=== PATIENT | male | born 1950 | race Caucasian/White ===

== ENCOUNTER 2017-05-15 12:49 | Emergency (ER) | payer MEDICARE, OTHER ==
[2017-05-15] MEDS ORDERED: HYDROmorphone INJ* 1 MG/ML CARPUJECT SYRINGE IV ONE ×2 (13:04→14:17)
[2017-05-15] MEDS ORDERED: Ondansetron INJ* 2 MG/ML VIAL IV ONE ×2 (13:04→14:17)
[2017-05-15] MEDS ORDERED: Ondansetron INJ* 2 MG/ML VIAL ONE (13:05)
[2017-05-15 13:53] LABS: Hematocrit 41 % (42-52); Mean Corpuscular HGB Conc 34 g/dl (31-36); Mean Corpuscular Hemoglobin 31 pg (27-31); Mean Corpuscular Volume 93 fL (80-94); Mean Platelet Volume 10 um3 (7.4-10.4); Red Blood Count 4.46 10^6/ul (4.0-5.4); Red Cell Distribution Width 13 % (10.5-15); White Blood Count 13.7 10^3/ul (3.5-10.8)
[2017-05-15 14:10] LABS: Albumin 3.6 g/dL (3.2-5.2); BUN/Creatinine Ratio 13.9 (8-20); C Reactive Protein 2.57 mg/L (< 5.00); Calcium 8.4 mg/dL (8.6-10.3); EGFR African American 63.3 (>60); EGFR Non-African American 49.2 (>60); Globulin 2.8 g/dL (2-4); Potassium 4.3 mmol/L (3.5-5.0); Total Bilirubin 0.7 mg/dL (0.2-1.0); Total Protein 6.4 g/dL (6.4-8.9)
[2017-05-15] MEDS ORDERED: NS 0.9% 1000 ML* 1,000 ML IV ONE (14:17)
[2017-05-15] MEDS ORDERED: Iodixanol* (CONTRAST) 320 MG/ML 100 ML SDV IV ONE (14:22)
--- NOTE | 2017-05-15 15:15 | RAD ---
HISTORY: Trauma COMPARISONS: None TECHNIQUE: Multiple contiguous axial CT scans were obtained of the lumbar spine without intravenous contrast, with coronal and sagittal multiplanar reformations. FINDINGS: SPINAL CANAL: Evaluation of the central canal is limited on CT technique; however, there is no obvious canalicular mass or epidural hemorrhage. ALIGNMENT: The alignment is normal. VERTEBRAL BODIES: There are minimally displaced fractures of the right transverse processes of L1, L2, L3, and L4. The vertebral bodies are preserved in height. There is unilateral pars defect of L5 on the left. JOINTS: There is facet hypertrophic change MUSCULATURE: Unremarkable INTERVERTEBRAL DISCS: There is diffuse loss of intervertebral disc height throughout the spine. AXIAL IMAGES: T11-T12: There is no osseous neural foraminal area or central canal stenosis. T12-L1: There is no osseous neural foraminal narrowing or central canal stenosis. L1-L2: There is no osseous neural foraminal narrowing or central canal stenosis. L2-L3: There is no osseous neural foraminal narrowing or central canal stenosis. L3-L4: There is broad-based disc bulge with mild narrowing of the central canal. There is no osseous neural foraminal narrowing. L4-L5: There is mild disc bulge. There is no osseous neural foraminal narrowing or central canal stenosis. L5-S1: There is mild disc bulge. There is no osseous neural foraminal narrowing or central canal stenosis. SOFT TISSUES: The visualized soft tissues of the abdomen are unremarkable. OTHER: None IMPRESSION: 1. MINIMALLY DISPLACED FRACTURES OF THE TRANSVERSE PROCESSES OF L1, L2, L3, AND L4 ON THE RIGHT. 2. UNILATERAL PARS DEFECT AT L5. 3. DEGENERATIVE DISC DISEASE AND OSTEOARTHRITIS. 4. THERE IS MILD NARROWING OF THE CENTRAL CANAL AT L3-L4. 5. THERE IS NO SIGNIFICANT OSSEOUS NEURAL FORAMINAL NARROWING.
--- NOTE | 2017-05-15 15:17 | RAD ---
INDICATION: Trauma, right flank and pelvic pain. COMPARISON: There are no prior studies available for comparison. TECHNIQUE: A CT scan of the chest, abdomen and pelvis was performed with intravenous and without oral contrast following intravenous injection of 122 ml of Visipaque 320 nonionic contrast. Contiguous axial sections were obtained from the lung apices through the symphysis pubis. Images were reconstructed in the coronal and sagittal planes. FINDINGS: There are mild dependent lower lobe infiltrates most consistent with atelectasis. No pleural effusion or pneumothorax is seen. No mediastinal hemorrhage is seen. No significant enlarged mediastinal or hilar lymph nodes are noted. The heart appears moderately enlarged. No pericardial effusion is present. The ascending thoracic aorta is mildly ectatic. There is homogeneous contrast opacification of the aorta. There is minimal calcific plaque present. The liver and spleen are normal in size. The liver is decreased in attenuation consistent with fatty infiltration. No significant focal hepatic abnormality is seen. The patient is status post cholecystectomy. No focal splenic abnormalities noted. There is fatty infiltration of the pancreas which otherwise appears unremarkable. The kidneys and adrenal glands are normal in size. There is no evidence for hydronephrosis. There is a small subcentimeter cyst present in the lower pole of the right kidney. The aorta is normal in caliber and demonstrates homogeneous contrast opacification. No retroperitoneal hemorrhage is seen. No significant enlarged retroperitoneal lymph nodes are noted. The stomach, small and large bowel appear nondistended. No bowel wall thickening is noted. There are small periumbilical hernias containing fat. There are also bilateral inguinal hernias containing fat. No free intraperitoneal air or fluid is seen. There is focal soft tissue swelling present in the subcutaneous tissues of the right flank most consistent with a hematoma and contusion. There are slightly displaced fractures of the right L1-L4 transverse processes. No other fractures are seen. IMPRESSION: 1. RIGHT FLANK HEMATOMA AND CONTUSION. 2. FRACTURES OF THE RIGHT L1-L4 TRANSVERSE PROCESSES. 3. HEPATIC STEATOSIS. 4. PERIUMBILICAL AND BILATERAL INGUINAL HERNIAS CONTAINING FAT.
[2017-05-15] MEDS ORDERED: Ketorolac INJ* 30 MG/ML 1 ML VIAL IV ONE (16:48)
[2017-05-15] MEDS ORDERED: LORazepam INJ* 2 MG/ML 1 ML VIAL IV ONE (16:48)
[2017-05-15 18:32] VITALS: BP 110/76
--- NOTE | 2017-05-15 19:02 | ED ---
Esme Ventura Thomas, scribed for Ruben Moody MD on 05/15/17 at 1321 . Back Pain - HPI Summary HPI Summary: The pt is a 66 y/o M BIBA c/o low back pain s/p a small tree that fell on his back about two hours ago. He was able to self-extricate his truck. The pain began suddenly and it is rated 9/10. The pain is constant. He is in severe pain. The pain is aggravated by movement and palpation. It is alleviated by nothing. The patient has treated the pain with nothing [employer]. - History of Current Complaint Chief Complaint: EDTraumaMultiple Stated Complaint: INJURED BY TREE Hx Obtained From: Patient Onset/Duration: Sudden Onset, Lasting Hours - onset two hours ago, Still Present Onset/Duration: Still Present Timing: Constant Severity Currently: Severe Pain Intensity: 9 Pain Scale Used: 0-10 Numeric Aggravating Symptom(s): Movement Alleviating Symptom(s): Nothing - Allergies/Home Medications Allergies/Adverse Reactions: Allergies Allergy/AdvReac Type Severity Reaction Status Date / Time No Known Drug Allergy Allergy See Comment Verified 05/15/17 14:28 Procaine [From Novocain] AdvReac Nausea And Verified 05/15/17 14:28 Vomiting NOVACAINE Allergy Nausea And Uncoded 05/15/17 14:28 Vomiting PMH/Surg Hx/FS Hx/Imm Hx Previously Healthy: Yes Endocrine/Hematology History: Denies: Hx Diabetes Cardiovascular History: Denies: Hx Hypertension History: Reports: Other Problems/Disorders - nephrosis at 3 yo - Surgical History Surgery Procedure, Year, and Place: [facility] Infectious Disease History: No Infectious Disease History: Denies: History Other Infectious Disease, Traveled Outside the [place] in Last 30 Days - Family History Known Family History: Positive: Diabetes - Social History Lives: With Family Alcohol Use: None Hx Substance Use: No Substance Use Type: Reports: None Hx Tobacco Use: Yes Smoking Status (MU): Former Smoker Type: Cigars Have You Smoked in the Last Year: No Review of Systems Negative: Fever Positive: Other - Sudden-onset back pain s/p small tree fell on back All Other Systems Reviewed And Are Negative: Yes Physical Exam Triage Information Reviewed: Yes Vital Signs On Initial Exam: Initial Vitals Temp Pulse Resp BP Pulse Ox 97.6 F 74 21 126/56 98 05/15/17 12:59 10/11/17 12:59 05/15/17 12:59 05/15/17 12:59 05/15/17 12:59 Vital Signs Reviewed: Yes Appearance: Positive: Well-Appearing, No Pain Distress, Obese Skin: Positive: Warm, Skin Color Reflects Adequate Perfusion, Dry Head/Face: Positive: Normal Head/Face Inspection Eyes: Positive: Normal ENT: Positive: Normal ENT inspection Neck: Positive: Supple, Nontender Respiratory/Lung Sounds: Positive: Clear to Auscultation, Breath Sounds Present Abdomen Description: Positive: Nontender, Soft Bowel Sounds: Positive: Present Musculoskeletal: Positive: Other - He is tender to the right paralumbar area and lower chest wall. Neurological: Positive: Normal Psychiatric: Positive: Normal, Affect/Mood Appropriate - Whitney Coma Scale Coma Scale Total: 15 Diagnostics - Vital Signs Vital Signs Temp Pulse Resp BP Pulse Ox 05/15/17 13:09 32 05/15/17 12:59 97.6 F 74 21 126/56 98 - Laboratory Lab Results: Lab Results 05/15/17 05/15/17 05/15/17 Range/Units 13:35 13:35 13:35 WBC 13.7 H (3.5-10.8) 10^3/ul RBC 4.46 (4.0-5.4) 10^6/ul Hgb 14.0 (14.0-18.0) g/dl Hct 41 L (42-52) % MCV 93 (80-94) fL MCH 31 (27-31) pg MCHC 34 (31-36) g/dl RDW 13 (10.5-15) % Plt Count 172 (150-450) 10^3/ul MPV 10 (7.4-10.4) um3 Neut % (Auto) 83.2 H (38-83) % Lymph % (Auto) 9.1 L (25-47) % Richardson % (Auto) 7.0 (1-9) % Eos % (Auto) 0.2 (0-6) % Baso % (Auto) 0.5 (0-2) % Absolute Neuts (auto) 11.4 H (1.5-7.7) 10^3/ul Absolute Lymphs (auto) 1.2 (1.0-4.8) 10^3/ul Absolute Monos (auto) 1.0 H (0-0.8) 10^3/ul Absolute Eos (auto) 0 (0-0.6) 10^3/ul Absolute Basos (auto) 0.1 (0-0.2) 10^3/ul Absolute Nucleated RBC 0 10^3/ul Nucleated RBC % 0 Sodium 138 (133-145) mmol/L Potassium 4.3 (3.5-5.0) mmol/L Chloride 108 (101-111) mmol/L Carbon Dioxide 22 (22-32) mmol/L Anion Gap 8 (2-11) mmol/L BUN 20 (6-24) mg/dL Creatinine 1.44 H (0.67-1.17) mg/dL Est GFR ( Amer) 63.3 (>60) Est GFR (Non-Af Amer) 49.2 (>60) BUN/Creatinine Ratio 13.9 (8-20) Glucose 133 H (70-100) mg/dL Calcium 8.4 L (8.6-10.3) mg/dL Total Bilirubin 0.70 (0.2-1.0) mg/dL AST 36 (13-39) U/L ALT 23 (7-52) U/L Alkaline Phosphatase 46 (34-104) U/L C-Reactive Protein 2.57 (< 5.00) mg/L Total Protein 6.4 (6.4-8.9) g/dL Albumin 3.6 (3.2-5.2) g/dL Globulin 2.8 (2-4) g/dL Albumin/Globulin Ratio 1.3 (1-3) Blood Type A Positive Antibody Screen Negative Result Diagrams: 05/15/17 13:35 05/15/17 13:35 Lab Statement: Any lab studies that have been ordered have been reviewed, and results considered in the medical decision making process. - CT CT Chest/Abd/Pel CT Interpretation: Positive (See Comments) - 1. RIGHT FLANK HEMATOMA AND CONTUSION. 2. FRACTURES OF THE RIGHT L1-L4 TRANSVERSE PROCESSES. 3. HEPATIC STEATOSIS. 4. PERIUMBILICAL AND BILATERAL INGUINAL HERNIAS CONTAINING FAT. ED physician has reviewed this report and agrees. CT Interpretation Completed By: Radiologist CT L-Spine CT Interpretation: Positive (See Comments) - 1. MINIMALLY DISPLACED FRACTURES OF THE TRANSVERSE PROCESSES OF L1, L2, L3, AND L4 ON THE RIGHT. 2. UNILATERAL PARS DEFECT AT L5. 3. DEGENERATIVE DISC DISEASE AND OSTEOARTHRITIS. 4. THERE IS MILD NARROWING OF THE CENTRAL CANAL AT L3-L4. 5. THERE IS NO SIGNIFICANT OSSEOUS NEURAL FORAMINAL NARROWING. ED physician has reviewed this report and agrees. CT Interpretation Completed By: Radiologist Back Pain Course/Dx - Course Course Of Treatment: Mr. Oliva was hit in the right low back by a tree he had felled. He walked a long distance to his truck and then drove about 30 minutes to his house. The paiin was severe so he called an ambulance. They found him with normal vitals but significant pain. He was found here to have right sided transverse process fractures of L1-4. His pain was managed and he is going to try managing his pain at home. - Diagnoses Provider Diagnoses: Lumbar transverse process fracture - Provider Notifications Discussed Care Of Patient With: oMses Newton Time Discussed With Above Provider: 16:10 Instructed by Provider To: Other - I consulted with Dr. Newton, neurosurgery, regarding patient care. Discharge - Discharge Plan Condition: Stable Disposition: HOME Prescriptions: LORazepam TAB(*) [Ativan TAB(*)] 1 mg PO Q6H PRN #20 tab MDD 4 PRN Reason: Pain oxyCODONE/Acetamin 5/325 MG* [Percocet 5/325 TAB*] 1 tab PO Q6H PRN #20 tab MDD 4 PRN Reason: Pain Patient Education Materials: Thoracolumbar Fracture (ED) Referrals: [facility] PHYSICIAN REFERRAL [Outside] Additional Instructions: Follow up with your primary care physician within the next week. If you do not have one, you can use the [facility] Physician Referral Service to find one. I recommend taking ibuprofen for the pain. Return to the emergency department for any new or worsening symptoms. The documentation as recorded by the Esme elias Thomas accurately reflects the service I personally performed and the decisions made by me, Ruben Moody MD.
== END 2017-05-15 18:33 | disposition home or self-care (01) ==
LOC: ED 12:49
DX: S32.010A Wedge compression fracture of first lumbar vertebra, initial encounter for closed fracture (principal); S32.020A Wedge compression fracture of second lumbar vertebra, initial encounter for closed fracture; S32.030A Wedge compression fracture of third lumbar vertebra, initial encounter for closed fracture; S32.040A Wedge compression fracture of fourth lumbar vertebra, initial encounter for closed fracture; S20.221A Contusion of right back wall of thorax, initial encounter; W20.8XXA Other cause of strike by thrown, projected or falling object, initial encounter; Y93.89 Activity, other specified; Y92.821 Forest as the place of occurrence of the external cause; M51.36 Other intervertebral disc degeneration, lumbar region; K76.0 Fatty (change of) liver, not elsewhere classified; K42.9 Umbilical hernia without obstruction or gangrene; K40.20 Bilateral inguinal hernia, without obstruction or gangrene, not specified as recurrent; Z90.49 Acquired absence of other specified parts of digestive tract; Z88.4 Allergy status to anesthetic agent; Z87.891 Personal history of nicotine dependence
CPT/HCPCS: 36415; 71260; 72131; 74177; 80053; 85025; 86140; 86850; 86900; 86901; 96374; 96375; 96376; 99283; J1170; J1885; J2060; J2405; Q9967

== ENCOUNTER 2018-08-18 01:43 | Observation (INO) | payer MEDICARE, OTHER ==
[2018-08-18] MEDS ORDERED: Ondansetron INJ* 2 MG/ML VIAL IV ONE ×2 (02:01→04:14)
[2018-08-18] MEDS ORDERED: Morphine VIAL* 4 MG/ML VIAL (1 ml vial) IV ONE (02:01)
[2018-08-18] MEDS ORDERED: Aspirin 81 mg CHEW TAB* 81 MG TAB.CHEW PO ONE (02:01)
[2018-08-18 02:14] LABS: ABS Basophils 0.1 10^3/ul (0-0.2); ABS Eosinophils 0.3 10^3/ul (0-0.6); ABS Lymphocytes 3.5 10^3/ul (1.0-4.8); ABS Monocytes 0.8 10^3/ul (0-0.8); ABS Nucleated RBC 0 10^3/ul; Eosinophil % 3.5 %; Hematocrit 49 % (42-52); Hemoglobin 16.6 g/dl (14.0-18.0); Lymphocyte % 46.3 %; Mean Corpuscular HGB Conc 34 g/dl (31-36); Mean Corpuscular Hemoglobin 32 pg (27-31); Mean Corpuscular Volume 94 fL (80-94); Nucleated Red Blood Cells % 0.1; Platelet Count 178 10^3/ul (150-450); Red Blood Count 5.18 10^6/ul (4.00-5.40); Red Cell Distribution Width 14 % (10.5-15); White Blood Count 7.5 10^3/ul (3.5-10.8)
--- NOTE | 2018-08-18 02:24 | ED ---
HPI Chest Pain - HPI Summary HPI Summary: This patient is a 67 year old M presenting to [facility] accompanied by with a chief complaint of mid-sternal CP radiating to L arm that began at 0120 today. The patient rates the pain 9/10 in severity. Symptoms aggravated by nothing. Symptoms alleviated by nothing. Patient reports SOB. - History of Current Complaint Chief Complaint: EDChestPainROMI Time Seen by Provider: 08/18/18 01:46 Hx Obtained From: Patient Onset/Duration: Started Hours Ago, Atraumatic, Still Present Time of Onset: 01:20 Timing: Constant Initial Severity: Severe Current Severity: Severe Pain Intensity: 9 Pain Scale Used: 0-10 Numeric Chest Pain Location: Mid Sternal Chest Pain Radiates: Yes Chest Pain Radiates To:: Arm Character: Other: - Pinching Aggravating Factor(s): Nothing Alleviating Factor(s): Nothing Associated Signs and Symptoms: Positive: Shortness of Breath - Allergy/Home Medications Allergies/Adverse Reactions: Allergies Allergy/AdvReac Type Severity Reaction Status Date / Time NOVACAINE Allergy Nausea And Uncoded 08/18/18 01:46 Vomiting Home Medications: Home Medications Furosemide TAB* [Lasix TAB*] 40 mg PO DAILY 08/18/18 [History Confirmed 08/18/18 ] Losartan TAB* [Cozaar TAB*] 50 mg PO DAILY 08/18/18 [History Confirmed 08/18/18] PMH/Surg Hx/FS Hx/Imm Hx Previously Healthy: No Endocrine/Hematology History: Denies: Hx Diabetes Cardiovascular History: Denies: Hx Hypertension History: Reports: Other Problems/Disorders - nephrosis at 3 yo - Surgical History Surgery Procedure, Year, and Place: [facility] Infectious Disease History: Denies: History Other Infectious Disease, Traveled Outside the [place] in Last 30 Days - Family History Known Family History: Positive: Diabetes - Social History Occupation: Retired Lives: With Family Alcohol Use: None Hx Substance Use: No Substance Use Type: Reports: None Hx Tobacco Use: Yes Smoking Status (MU): Former Smoker Type: Cigars Have You Smoked in the Last Year: No Review of Systems Positive: Chest Pain Positive: Shortness Of Breath All Other Systems Reviewed And Are Negative: Yes Physical Exam - Summary Physical Exam Summary: VITAL SIGNS: Reviewed. GENERAL: Patient is a well-developed and nourished male who is lying comfortable in the stretcher. Patient is not in any acute respiratory distress. HEAD AND FACE: No signs of trauma. No ecchymosis, hematomas or skull depressions. No sinus tenderness. EYES: PERRLA, EOMI x 2, No injected conjunctiva, no nystagmus. EARS: Hearing grossly intact. Ear canals and tympanic membranes are within normal limits. MOUTH: Oropharynx within normal limits. NECK: Supple, trachea is midline, no adenopathy, no JVD, no carotid bruit, no c- spine tenderness, neck with full ROM. CHEST: Symmetric, no tenderness at palpation LUNGS: Clear to auscultation bilaterally. No wheezing or crackles. CVS: Regular rate and rhythm, S1 and S2 present, no murmurs or gallops appreciated. ABDOMEN: Soft, non-tender. Distention. No rebound no guarding, and no masses palpated. Bowel sounds are normal. EXTREMITIES: FROM in all major joints, no edema, no cyanosis or clubbing. NEURO: Alert and oriented x 3. No acute neurological deficits. Speech is normal and follows commands. SKIN: Dry and warm Triage Information Reviewed: Yes Vital Signs On Initial Exam: Initial Vitals Temp Pulse Resp BP Pulse Ox 96.5 F 106 25 162/84 97 08/18/18 01:46 08/18/18 01:46 08/18/18 01:46 08/18/18 01:46 08/18/18 01:46 Vital Signs Reviewed: Yes Diagnostics - Vital Signs Vital Signs Temp Pulse Resp BP Pulse Ox 08/18/18 01:46 96.5 F 106 25 162/84 97 - Laboratory Result Diagrams: 08/18/18 02:05 08/18/18 02:05 Lab Statement: Any lab studies that have been ordered have been reviewed, and results considered in the medical decision making process. - Radiology Chest XR Radiology Interpretation Completed By: ED Physician Summary of Radiographic Findings: CXR reveals, per ED physician, bilateral lung congestion and cardiomegaly consistent with CHF. - EKG 0151 Cardiac Rate: NL EKG Rhythm: Sinus Rhythm - 96 BPM Summary of EKG Findings: An EKG taken at 0151 reveals nml sinus rhythm at 96 BPM with PVCs, atrioventricular conduction delay, and minimal ST depression in lateral leads. Poor quality EKG. Chest Pain Course/Dx - Course Course Of Treatment: This patient is a 67 year old M [facility] by with a chief complaint of mid-sternal CP radiating to L arm that began at 0120 today. Physical Exam Findings: Distended. An EKG taken at 0151 reveals nml sinus rhythm at 96 BPM with PVCs, atrioventricular conduction delay, and minimal ST depression in lateral leads. Poor quality EKG. CXR reveals , per ED physician, bilateral lung congestion and cardiomegaly consistent with CHF. Bloodwork obtained. In the ED course the patient was given aspirin, furosemide, morphine, and Zofran. Consult with Dr. Patterson (hospitalist) at 0255. She agrees to admit the patient for further evaluation. The patient is agreeable with this plan. - Diagnoses Provider Diagnoses: CHF (congestive heart failure), Chest pain - Provider Notifications Discussed Care Of Patient With: Marilyn Patterson Time Discussed With Above Provider: 02:55 Instructed by Provider To: Other - Consult with Dr. Patterson (hospitalist) at 0255. She agrees to admit the patient for further evaluation. Discharge - Sign-Out/Discharge Documenting (check all that apply): Patient Departure - Admit to [facility] - Discharge Plan Condition: Stable Disposition: ADMITTED TO [facility] Referrals: Jose A Strong MD [Primary Care Provider] - - Attestation Statements Document Initiated by Scribe: Yes Documenting Scribe: Ewa Kline Provider For Whom Scribe is Documenting (Include Credential): Dr. Moisés Grider MD Scribe Attestation: Ewa Ventura, scribed for Dr. Moisés Grider MD on 08/18/18 at 0257. Status of Scribe Document: Ready
[2018-08-18 02:26] LABS: Activated Partial Thrombo Time 32.4 seconds (26.0-36.3); INR 0.93 (0.77-1.02)
[2018-08-18 02:35] LABS: Albumin 4.2 g/dL (3.2-5.2); Albumin/Globulin Ratio 1.3 (1-3); Calcium 9.4 mg/dL (8.6-10.3); EGFR Non-African American 54.7 (>60); Globulin 3.2 g/dL (2-4); Magnesium 2.2 mg/dL (1.9-2.7); Total Bilirubin 0.6 mg/dL (0.2-1.0); Total Protein 7.4 g/dL (6.4-8.9)
[2018-08-18] MEDS ORDERED: Furosemide IV* 10 MG/ML VIAL (40 MG) IV SLOW PU ONE (02:42)
[2018-08-18] MEDS ORDERED: Nitroglycerin TAB 0.4 MG* 0.4 MG TAB SL ONE (03:32)
[2018-08-18] MEDS ORDERED: Al Hydrox/Mg Hydrox/Simet LIQ* 30 ML UDC PO PRN (03:43)
[2018-08-18] MEDS ORDERED: Enoxaparin(*) 40 MG/0.4 ML SYR SUBCUT SCH ×2 (04:00→06:00)
[2018-08-18] MEDS ORDERED: Ondansetron INJ* 2 MG/ML VIAL ONE (04:13)
[2018-08-18] MEDS ORDERED: Morphine VIAL* 4 MG/ML VIAL (1 ml vial) IV PRN (05:34)
[2018-08-18] MEDS: Heparin DRIP 25,000 UNITS(*) 25,000 UNITS/500 ML BAG IV SCH (06:18)
[2018-08-18] MEDS: Heparin VIAL(*) 5000 UNITS/ML VIAL (FIVE THOUSAND) IV PRN (06:18)
--- NOTE | 2018-08-18 06:25 | PN ---
Hospitalist Progress Note Date of Service: 08/18/18 RN called to report troponin of 0.23. I went back to assess Mr. Mccracken and read new EKG. He is chest pain free. EKG shows unchanged lateral T-wave inversions. I updated him on this finding. Will consult cardiology. Start heparin drip and beta ace and statin.
--- NOTE | 2018-08-18 06:39 | HP ---
CC: Dr. Strong HISTORY AND PHYSICAL: DATE OF ADMISSION: 08/18/18 COMMUNITY ENGAGEMENT REPRESENTATIVE: Dr. Arvizu. CHIEF COMPLAINT: Chest pain. HISTORY OF PRESENT ILLNESS: This is a 67-year-old man with history of a nonischemic cardiomyopathy t hat was thought to be viral in 2014, who presents to the emergency department with chest pain that be reza around 11 p.m. and woke him up from sleep. He reported an uneventful evening and dinner and went to bed feeling well and woke up suddenly with mid sternal chest pain. Of note, he reports he broke his sternum last year and feels that it never healed correctly. The pain radiated from the sternum t o the left arm, but it was unchanged with exertion, unchanged with position, and unchanged with rest. It improved in the emergency department with morphine but has not gone. If the pain at home was 10 /10, the pain now is 3/10. It was associated with shortness of breath. He had no nausea or diaphore sis. When he was at home, he got out of bed and was trying to walk around to get comfortable and he could not, so his called EMS. He also notes over the past year having decreased exercise tolera nce; however, he is able to walk many blocks without shortness of breath and he denies orthopnea. 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 PAST MEDICAL HISTORY: Nonischemic cardiomyopathy that was thought to be viral in nature, that was di agnosed in 2014. He and his reports that he followed up with Dr. Arvizu and that his EF has not recovered since that time, though I do not have a recent echo here. Sternal fracture in 2018. PAST SURGICAL HISTORY: Cholecystectomy. 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 He does not smoke. He does not drink. His emergency contact is his w andrew who is here with him. REVIEW OF SYSTEMS: As per HPI. The remainder of the 14-point review of systems is negative. PHYSICAL EXAMINATION GENERAL: Alert, well-appearing man, in no distress. VITAL SIGNS: Temperature 96.5, heart rate 79, respiratory rate 18, pulse ox 91% on room air, blood p ressure 120/84. HEENT: Pupils are equal, round, and reactive to light. Oral mucosa is moist. NECK: JVP is noted at the mandible at 45 degree angle. LUNGS: Clear bilaterally with no crackles. CHEST: Regular rate and rhythm. No murmurs. PMI is nondisplaced. ABDOMEN: Obese, soft, nontender, and nondistended. Liver and spleen are not palpable. EXTREMITIES: No edema. No rashes or ulcers. DIAGNOSTIC STUDIES/LAB DATA: Sodium 139, potassium 4.0, chloride 102, creatinine 1.31, glucose 139, lactic acid 1.1. Troponin 0.03. INR 0.93. White blood cells 7.5, hemoglobin 16.6, platelets 178. Chest x-ray shows cardiomegaly. It is a poor film. The left costophrenic angle is out of the pictu re. He does have pulmonary vascular congestion. EKG: Sinus rhythm, normal axis with a long QRS in a nonspecific pattern. He has ST depressions in V 4 through V6 that are unchanged from EKG from 2015. ASSESSMENT AND PLAN: This is a 67-year-old man with history of a nonischemic cardiomyopathy with an EF of 20% in 2015, who presents to the emergency department with sudden onset of chest pain that woke him from sleep. 1. Chest pain. He had a normal cardiac catheterization in 2015; however, I do not have any cardiolo gy records since that time and an initial the patient is negative. An EKG does have ischemic changes but it is unchanged from his EKGs from 2015. I am giving him nitro and morphine to get him chest j luis n free. I am trending his troponin and monitoring him on telemetry. He may warrant a stress test if his troponins are negative, and records from Dr. Arvizu's office would also be helpful. Certainl y, it is possible that this pain is a result of sternal fracture that occurred last year; however, it will be unusual that he has not had this chest pain over the past year since the injury happened. Dragan miles has been given aspirin 325 in the emergency department. He already takes losartan. Depending on t he results of his troponins and stress, he may benefit from the addition of a statin and a beta-block er. 2. Nonischemic cardiomyopathy with decompensated systolic heart failure. He does appear slightly vo lume overloaded. I am changing his p.o. Lasix to IV Lasix. 3. Chronic kidney disease. His creatinine appears to be at baseline. 4. Diet. N.p.o. for possible stress test depending on the results of his troponin. [id number]/[facility] #: [id number]
[2018-08-18] MEDS ORDERED: Furosemide IV* 10 MG/ML VIAL (40 MG) IV SLOW PU SCH (09:00)
[2018-08-18] MEDS: Losartan TAB* 25 MG PO SCH (09:06)
[2018-08-18] MEDS: Metoprolol Tartrate TAB* 25 MG PO SCH ×2 (09:07→20:47)
--- NOTE | 2018-08-18 11:09 | PN ---
Subjective Date of Service: 08/18/18 Interval History: HD #1 08/18/17 67 yo M who presented with chest pain hx of NICM in 2014. Overnight no complaints per pt he feels well without CP at rest but does have when he "sneezes or coughs" Not eating as NPO for stress, making good urine. This morning troponins did bump from 0.28 to 0.94 he remains on a heparin gtt. Seen with cardiology, tele shows 4 beat run of NSVT, plan is to pursue stress as ordered. Objective Active Medications: Al Hydrox/Mg Hydrox/Simethicone (Maalox Plus*) 30 ml PO Q6H PRN PRN Reason: INDIGESTION Aspirin (Aspirin 81 Mg Chew Tab*) 81 mg PO DAILY [facility] Atorvastatin Calcium (Lipitor*) 40 mg PO 1700 [facility] Furosemide (Lasix Iv*) 40 mg IV SLOW PU DAILY [facility] Last Admin: 08/18/18 09:08 Dose: 40 mg Heparin Sodium (Porcine) (Heparin Vial(*)) 0 units IV .BOLUS PRN PRN Reason: HEPARIN DRIP PROTOCOL Last Admin: 08/18/18 06:18 Dose: 4,000 units Heparin Sodium/Dextrose (Heparin Drip 25,000 Units(*)) 25,000 units in 500 mls @ 0 mls/hr IV PER RATE [facility]; Protocol Last Admin: 08/18/18 06:18 Dose: 20 mls/hr Losartan Potassium (Cozaar Tab*) 50 mg PO DAILY [facility] Last Admin: 08/18/18 09:06 Dose: 50 mg Metoprolol Tartrate (Lopressor Tab*) 12.5 mg PO Q12HR [facility] Last Admin: 08/18/18 09:07 Dose: 12.5 mg Morphine Sulfate (Morphine Vial*) 4 mg IV Q2H PRN PRN Reason: PAIN Vital Signs - 8 hr 08/18/18 08/18/18 08/18/18 03:34 04:00 04:04 Temperature Pulse Rate 79 76 79 Respiratory 20 16 17 Rate Blood Pressure 137/88 122/78 123/78 (mmHg) O2 Sat by Pulse 94 94 95 Oximetry 08/18/18 08/18/18 08/18/18 04:06 04:20 04:35 Temperature Pulse Rate 77 73 Respiratory 18 12 18 Rate Blood Pressure 106/74 116/65 113/76 (mmHg) O2 Sat by Pulse 94 92 Oximetry 08/18/18 08/18/18 08/18/18 05:02 05:07 07:25 Temperature 98.6 F 97.6 F 98.5 F Pulse Rate 78 78 81 Respiratory 18 20 16 Rate Blood Pressure 113/76 131/69 129/83 (mmHg) O2 Sat by Pulse 94 95 95 Oximetry Oxygen Devices in Use Now: None Appearance: Pt is seen laying in bed, pleasant and chatty Eyes: PERRLA Ears/Nose/Mouth/Throat: NL Teeth, Lips, Gums Neck: NL Appearance and Movements; NL JVP Respiratory: Symmetrical Chest Expansion and Respiratory Effort, Clear to Auscultation Cardiovascular: NL Sounds; No Murmurs; No JVD, RRR Abdominal: NL Sounds; No Tenderness; No Distention Lymphatic: No Cervical Adenopathy Extremities: No Edema Skin: No Rash or Ulcers Neurological: Alert and Oriented x 3 Result Diagrams: 08/18/18 02:05 08/18/18 02:05 Assess/Plan/Problems-Billing Assessment: 67 yo M with distant hx of viral NICM with unknown EF (records at outside cardiology), CKD, hx of sternal fracture and CLBP who is presenting for chest pain and hospital stay complicated by tropinemia. - Patient Problems (1) Chest pain Current Visit: Yes Status: Acute Code(s): R07.9 - CHEST PAIN, UNSPECIFIED SNOMED Code(s): 97488496 Comment: Ddx includes CAD given rise in trops also consider MSK given hx of sternal fracture and movement associated. -Remains on heparin gtt given tropinemia -Stress test -Cardiology to follow -On asa and statin and low dose Metoprolol (2) Elevated troponin Current Visit: Yes Status: Acute Code(s): R74.8 - ABNORMAL LEVELS OF OTHER SERUM ENZYMES SNOMED Code(s): 518124895 Comment: In setting of new CP r/o CAD --Also consider type II given CKD --Continue to monitor s/p stress --Asa, statin, BB, and ARB in place (3) CKD (chronic kidney disease), stage III Current Visit: Yes Status: Acute Code(s): N18.3 - CHRONIC KIDNEY DISEASE, STAGE 3 (MODERATE) SNOMED Code(s): 626121380 Comment: Appears at baseline, Cr ~1.3 -Losartan 25mg home dose, here at 50mg -Remains on PO Lasix for volume mgmt per home med (4) DVT prophylaxis Current Visit: No Status: Acute Onset Date: 12/08/14 Code(s): WFE9048 - SNOMED Code(s): 244268291 Comment: heparin gtt at this time with PTT per protocol
[2018-08-18] MEDS ORDERED: Perflutren Lipid Microsphere* 3 ML VIAL ONE (12:02)
--- NOTE | 2018-08-18 12:51 | CONS ---
CC: Dr. Arvizu; Dr. Storng * CARDIOLOGY CONSULTATION: DATE OF CONSULT: 08/18/18 INDICATION FOR CONSULT: Chest pain, abnormal troponin. HISTORY OF PRESENT ILLNESS: The patient is a 67-year-old gentleman with a history of cardiomyopathy, who was admitted to the hospital with chest discomfort radiating to the left arm. The patient was admitted here at [facility] in 2014. At that time, the patient had an ejection fraction of 20%, thought secondary to a viral illness. A cardiac catheterization at that time showed a 40% left circumflex lesion, otherwise no significant coronary artery disease. He has been followed by Dr. Arvizu. The patient states that last night, he started having some pressure in his chest that was sort of a pinching feeling in his chest, but did radiate to his neck and out to his left arm. He did have some mild shortness of breath also associated with it. He denied any orthopnea. He denied any diaphoresis. The patient states the discomfort lasted for about an hour or so and then decided to come to the emergency room. On arrival to the emergency room, the patient was pain free. His initial troponin level was 0.03, his second troponin was 0.28, and his third troponin was 0.94. His EKG on admission showed normal sinus rhythm with incomplete right bundle-branch block, mild ST-segment depression in the inferior leads, which was new compared to an EKG in 2015. In speaking with the patient this morning, he has no symptoms. PAST MEDICAL HISTORY: Unremarkable except for hypertension. Of note, the patient did have a sternal fracture secondary to a logging injury this past summer. PAST SURGICAL HISTORY: Cholecystectomy, cardiac catheterization. OUTPATIENT MEDICATIONS: 1. Losartan 50 mg a day. 2. Lasix 40 mg a day. ALLERGIES: To ANETTE INHIBITORS, PROCAINE. SOCIAL HISTORY: He is . 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 He quit smoking cigars in 1969. REVIEW OF SYSTEMS: Negative for changes in bowel or bladder habits, negative for change in sleeping habits. He has gained weight because of his decreased activity recently. PHYSICAL EXAM: Height 5 feet 8 inches, weight 240 pounds. Blood pressure 116/65 , heart rate 71, temperature 98.6, respiratory rate is 18, oxygen saturation 95 % on room air. Sclerae anicteric. Oropharynx is pink, without erythema. Carotids are 2+, without bruits. JVD is normal. Thyroid is normal. Cardiac Exam: S1, S2, without any murmurs, rubs, or gallops. PMI is normal. Lungs are clear to auscultation bilaterally. There is no dullness to percussion. Abdomen is soft, nontender, nondistended, with normoactive bowel sounds. Extremities show no edema. He has 2+ pulses through-out. The patient is awake and alert and oriented. He moves all 4 extremities equally. LABORATORY DATA: Chemistries within normal limits except for troponin levels. BNP is minimally elevated at 404. CBC within normal limits. IMPRESSION: This is a 67-year-old gentleman with a history of non-ischemic cardiomyopathy, who is admitted to the hospital with chest pain. His chest pain is somewhat concerning in its presentation. He does have an elevated troponin level at 0.94. The patient has been started on heparin. It is my recommendation that the patient undergo a chemical nuclear stress test to reevaluate cardiac perfusion. The patient will also get an echocardiogram to reevaluate his LV function. The patient is not on a beta-ace. This may be beneficial to his overall care if his LV function is still diminished. [id number]/CPS #: [id number] MTDD
--- NOTE | 2018-08-18 14:23 | ECHO ---
Patient: PEDRO COLINDRES [facility] Rec#: [id number] : 1950 Date: 08/18/2018 Age: 67y Height: 168 cm / 66.1 in Weight: 109 kg / 240.2 lbs Sex: M BSA: 2.17 Room#: [facility] Admit Date#: 08/18/2018 Type: Inpatient Referring: Javier Odell MD Reading: Javier Odell MD Iron Cutter: Liz Ortega LATONYA CC: Jose A Strong MD CC: Duarte Arvizu Transthoracic Echocardiogram Indication: CP BP: 129/83 HR: 74 Rhythm: NSR with PVCs Findings History: Nonischemic cardiomyopathy secondary to a virus(2014),s/p sternal fracture 2018. Technical Comments: The study is technically limited due to patient body habitus. Completed at 1310. Definity used to enhance images. Left Ventricle: The left ventricular chamber size is severely dilated. There is evidence of a dilated cardiomyopathy. Severe global hypokinesis of the left ventricle is observed. There is severely decreased left ventricular systolic function. The estimated ejection fraction is 20-25%. Abnormal left ventricular diastolic function is observed. Left Atrium: The left atrium is mildly dilated. Right Ventricle: The right ventricle is not well visualized. Right Atrium: The right atrium is not well visualized. Aortic Valve: The aortic valve is trileaflet. There is trace to mild aortic regurgitation. There is no evidence of aortic stenosis. Mitral Valve: The mitral valve leaflets are mildly thickened. There is no evidence of mitral regurgitation. There is no evidence of mitral stenosis. Tricuspid Valve: The tricuspid valve leaflets are normal. There is no evidence of tricuspid valve regurgitation. There is no tricuspid stenosis. Pulmonic Valve: The pulmonic valve appears normal. There is no evidence of pulmonic regurgitation. There is no pulmonic stenosis. Pericardium: The pericardium appears normal. Aorta: There is no dilatation of the ascending aorta. There is no dilatation of the aortic arch. There is no dilation of the aortic root. Pulmonary Artery: The main pulmonary artery appears normal. Venous: The venous system is not well visualized. Contrast: Definity was used to optimize study. A total of 4 ml used. Intravenous contrast was used to enhance endocardial border definition. Summary: There are no significant changes when compared to the previous study done on 12/08/14 Conclusions There is evidence of a dilated cardiomyopathy. Severe global hypokinesis of the left ventricle is observed. There is severely decreased left ventricular systolic function. The estimated ejection fraction is 20-25%. There is trace to mild aortic regurgitation. There is no evidence of aortic stenosis. There is no evidence of mitral regurgitation. There is no evidence of tricuspid valve regurgitation. The pericardium appears normal. There are no significant changes when compared to the previous study done on 12/08/14 Measurements Name Value Normal Range RVIDd (AP) 2D 2.3 cm (0.9 - 2.6) IVSd (2D) 1.1 cm (0.6 - 1) LVPWd (2D) 1 cm (0.6 - 1) LVIDd (2D) 7.1 cm (3.6 - 5.4) LVIDs (2D) 6.3 cm - LV FS (2D) 11 % (25 - 45) Aortic Annulus 2 cm (1.4 - 2.6) Ao root diameter (2D) 3.3 cm (2.1 - 3.5) Ascending Ao 3.3 cm (2.1 - 3.4) Aortic arch 2.8 cm (1.8 - 3.4) Descending Ao 0.5 cm - LA dimension (AP) 2D 5.7 cm (2.3 - 3.8) Name Value Normal Range LA ESV SP 4CH (A/L) 54 ml - LA ESV SP 2CH (A/L) 37 ml - LA ESV BP (A/L) index 49 ml/m2 - Name Value Normal Range MV E-wave Vmax 0.7 m/sec - MV deceleration time 120 msec - MV A-wave Vmax 0.5 m/sec - MV E:A ratio 1.4 ratio - LV septal e' Vmax 0.06 m/sec - LV lateral e' Vmax 0.06 m/sec - LV E:e' septal ratio 11.67 ratio - LV E:e' lateral ratio 11.67 ratio - Name Value Normal Range AV Vmax 1.4 m/sec - AV VTI 25.3 cm - AV peak gradient 8 mmHg - AV mean gradient 3 mmHg - LVOT Vmax 1 m/sec - LVOT VTI 17.8 cm - LVOT peak gradient 4 mmHg - LVOT mean gradient 2 mmHg - Name Value Normal Range PV Vmax 0.6 m/sec - PV peak gradient 1 mmHg -
[2018-08-18] MEDS ORDERED: Atorvastatin* 40 MG TAB PO SCH (17:00)
[2018-08-19] MEDS: Heparin DRIP 25,000 UNITS(*) 25,000 UNITS/500 ML BAG IV SCH (06:07)
[2018-08-19 06:08] LABS: ABS Basophils 0.1 10^3/ul (0-0.2); ABS Eosinophils 0.2 10^3/ul (0-0.6); ABS Lymphocytes 2.2 10^3/ul (1.0-4.8); ABS Monocytes 0.6 10^3/ul (0-0.8); ABS Neutrophils 3.4 10^3/ul (1.5-7.7); ABS Nucleated RBC 0 10^3/ul; Eosinophil % 3.4 %; Hematocrit 44 % (42-52); Hemoglobin 14.9 g/dl (14.0-18.0); Lymphocyte % 33.7 %; Mean Corpuscular HGB Conc 34 g/dl (31-36); Mean Corpuscular Hemoglobin 32 pg (27-31); Mean Corpuscular Volume 94 fL (80-94); Mean Platelet Volume 10.1 fL (7.4-10.4); Nucleated Red Blood Cells % 0; Platelet Count 157 10^3/ul (150-450); Red Blood Count 4.65 10^6/ul (4.00-5.40); Red Cell Distribution Width 13 % (10.5-15); White Blood Count 6.4 10^3/ul (3.5-10.8)
[2018-08-19 06:26] LABS: Calcium 9.3 mg/dL (8.6-10.3); EGFR Non-African American 51.1 (>60); Potassium 4.1 mmol/L (3.5-5.0)
[2018-08-19] MEDS: Heparin VIAL(*) 5000 UNITS/ML VIAL (FIVE THOUSAND) IV PRN (06:53)
--- NOTE | 2018-08-19 07:15 | PN ---
Subjective Date of Service: 08/19/18 Interval History: HD #2 08/19/18 67 yo M w/ NICM EF 20-25% who presented with chest pain. Overnight no acute events. VSS: t Max 98.3, HR 68-80, sinus, 99% on RA BP 99-120/65-72, no tele events, trops did trend up yesterday and reached surinder of 1.24, now at 0.74 this AM. Pt remains CP free. Echo done yesterday still showing global hypokinesis. This morning was at NM stress. Seen upon return, test indicated that he is " high risk" though per pt, Dr. Odell told him he could be d/c. He feels well, eager to eat, denies CP or any other complaints. Long discussion with his where we gently encourage Mr. Mccracken to engage in meaningful cardiac care. Objective Active Medications: Al Hydrox/Mg Hydrox/Simethicone (Maalox Plus*) 30 ml PO Q6H PRN PRN Reason: INDIGESTION Aspirin (Aspirin 81 Mg Chew Tab*) 81 mg PO DAILY [facility] Atorvastatin Calcium (Lipitor*) 40 mg PO 1700 [facility] Last Admin: 08/18/18 17:36 Dose: 40 mg Furosemide (Lasix Tab*) 40 mg PO DAILY [facility] Heparin Sodium (Porcine) (Heparin Vial(*)) 0 units IV .BOLUS PRN PRN Reason: HEPARIN DRIP PROTOCOL Last Admin: 08/19/18 06:53 Dose: 2,000 units Heparin Sodium/Dextrose (Heparin Drip 25,000 Units(*)) 25,000 units in 500 mls @ 0 mls/hr IV PER RATE [facility]; Protocol Last Admin: 08/19/18 06:07 Dose: 17 mls/hr Losartan Potassium (Cozaar Tab*) 50 mg PO DAILY [facility] Last Admin: 08/18/18 09:06 Dose: 50 mg Metoprolol Tartrate (Lopressor Tab*) 12.5 mg PO Q12HR [facility] Last Admin: 08/18/18 20:47 Dose: 12.5 mg Morphine Sulfate (Morphine Vial*) 4 mg IV Q2H PRN PRN Reason: PAIN Vital Signs - 8 hr 08/19/18 03:11 Temperature 98.3 F Pulse Rate 62 Respiratory 16 Rate Blood Pressure 99/65 (mmHg) O2 Sat by Pulse 100 Oximetry Oxygen Devices in Use Now: None Appearance: Well appearing man in NAD in bed Eyes: No Scleral Icterus Ears/Nose/Mouth/Throat: NL Teeth, Lips, Gums Neck: NL Appearance and Movements; NL JVP Respiratory: Symmetrical Chest Expansion and Respiratory Effort, Clear to Auscultation Cardiovascular: NL Sounds; No Murmurs; No JVD, RRR Abdominal: NL Sounds; No Tenderness; No Distention Lymphatic: No Cervical Adenopathy Extremities: No Edema Skin: No Rash or Ulcers Neurological: Alert and Oriented x 3 Result Diagrams: 08/19/18 05:54 08/19/18 05:54 Diagnostic Imaging: Echo 08/18/17: Severe global hypokinesis EF 20-25% NM Stress: Neg for sig ischemic change EKG Data: EKG yesterday afternoon and overnight:Sinus LAD with IVD and QRS ~150, VPC and APC noted, some STD in V5 isolated, otherwise no changes Assess/Plan/Problems-Billing Assessment: 67 yo M with distant hx of viral NICM with EF 20%, CKD, last cath 2014 showed 40 % lesion to Cx, otherwise unremarkable, hx of sternal fracture and CLBP who is presenting for chest pain and hospital stay complicated by tropinemia. NM stress shows no e/o acute ischemic event. Perhaps all 2/2 to demand ischemia in setting of severely depressed EF. - Patient Problems (1) Chest pain Current Visit: Yes Status: Acute Code(s): R07.9 - CHEST PAIN, UNSPECIFIED SNOMED Code(s): 50009048 Comment: Ddx includes CAD given rise in trops, though NM stress showing no active ischemia and cath from 2015 showing only 40% lesion in Circumflex. Consider MSK given hx of sternal fracture and movement associated. -May stop heparin gtt if cardiology Oks -encourage meaningful cardiology engagement -On asa and statin and low dose Metoprolol (2) Elevated troponin Current Visit: Yes Status: Acute Code(s): R74.8 - ABNORMAL LEVELS OF OTHER SERUM ENZYMES SNOMED Code(s): 376049044 Comment: In setting of new CP concerning for CAD though as per above reassuring cath in 2015 and no e/o active ischemia in NM. --Also consider type II given CKD --Continue to monitor s/p stress --Asa, statin, BB, and ARB in place (3) Chronic systolic (congestive) heart failure Current Visit: Yes Status: Acute Code(s): I50.22 - CHRONIC SYSTOLIC ( CONGESTIVE) HEART FAILURE SNOMED Code(s): 739037554 Comment: 09/06 to NICM thought to be viral in 2014. -Home medications, encourage meaninful engagement in cardiology (4) CKD (chronic kidney disease), stage III Current Visit: Yes Status: Acute Code(s): N18.3 - CHRONIC KIDNEY DISEASE, STAGE 3 (MODERATE) SNOMED Code(s): 503444661 Comment: Appears at baseline, Cr ~1.3 -Losartan 25mg home dose, here at 50mg -Remains on PO Lasix for volume mgmt per home med (5) DVT prophylaxis Current Visit: No Status: Acute Onset Date: 12/08/14 Code(s): [id number] - SNOMED Code(s): 079403972 Comment: heparin gtt d/c. ambulatory to d/c Status and Disposition: Will d/c to home
[2018-08-19] MEDS ORDERED: Aspirin 81 mg CHEW TAB* 81 MG TAB.CHEW PO SCH (09:00)
[2018-08-19] MEDS ORDERED: Furosemide TAB* 40 MG PO SCH (09:00)
[2018-08-19] MEDS: Losartan TAB* 25 MG PO SCH (10:26)
[2018-08-19] MEDS: Metoprolol Tartrate TAB* 25 MG PO SCH (10:26)
[2018-08-19] MEDS ORDERED: Regadenoson* 0.4 MG/5 ML SYRINGE ONE (11:16)
[2018-08-19 12:54] VITALS: BP 107/58
--- NOTE | 2018-08-19 13:50 | DCNOTE ---
Subjective Date of Service: 08/19/18 Interval History: Hospitalization Summary: Objective Active Medications: Al Hydrox/Mg Hydrox/Simethicone (Maalox Plus*) 30 ml PO Q6H PRN PRN Reason: INDIGESTION Aspirin (Aspirin 81 Mg Chew Tab*) 81 mg PO DAILY [facility] Last Admin: 08/19/18 10:26 Dose: 81 mg Atorvastatin Calcium (Lipitor*) 40 mg PO 1700 [facility] Last Admin: 08/18/18 17:36 Dose: 40 mg Furosemide (Lasix Tab*) 40 mg PO DAILY [facility] Last Admin: 08/19/18 10:26 Dose: 40 mg Losartan Potassium (Cozaar Tab*) 50 mg PO DAILY [facility] Last Admin: 08/19/18 10:26 Dose: 50 mg Metoprolol Tartrate (Lopressor Tab*) 12.5 mg PO Q12HR [facility] Last Admin: 08/19/18 10:26 Dose: 12.5 mg Vital Signs - 8 hr 08/19/18 08/19/18 08/19/18 07:34 10:25 11:40 Temperature 98.2 F 97.0 F 97.9 F Pulse Rate 65 77 65 Respiratory 20 18 20 Rate Blood Pressure 102/58 121/80 107/58 (mmHg) O2 Sat by Pulse 98 96 97 Oximetry Oxygen Devices in Use Now: None Result Diagrams: 08/19/18 05:54 08/19/18 05:54 Diagnostic Imaging: Echo 08/18/17: Severe global hypokinesis EF 20-25% NM Stress: Neg for sig ischemic change EKG Data: EKG yesterday afternoon and overnight:Sinus LAD with IVD and QRS ~150, VPC and APC noted, some STD in V5 isolated, otherwise no changes Assess/Plan/Problems-Billing Assessment: 67 yo M with distant hx of viral NICM with EF 20%, CKD, last cath 2014 showed 40 % lesion to Cx, otherwise unremarkable, hx of sternal fracture and CLBP who is presenting for chest pain and hospital stay complicated by tropinemia. NM stress shows no e/o acute ischemic event. Perhaps all 2/2 to demand ischemia in setting of severely depressed EF. - Patient Problems (1) Chest pain Current Visit: Yes Status: Acute Code(s): R07.9 - CHEST PAIN, UNSPECIFIED SNOMED Code(s): 53358851 Comment: Ddx includes CAD given rise in trops, though NM stress showing no active ischemia and cath from 2015 showing only 40% lesion in Circumflex. Consider MSK given hx of sternal fracture and movement associated. -May stop heparin gtt if cardiology Oks -encourage meaningful cardiology engagement -On asa and statin and low dose Metoprolol (2) Elevated troponin Current Visit: Yes Status: Acute Code(s): R74.8 - ABNORMAL LEVELS OF OTHER SERUM ENZYMES SNOMED Code(s): 864898352 Comment: In setting of new CP concerning for CAD though as per above reassuring cath in 2015 and no e/o active ischemia in NM. --Also consider type II given CKD --Continue to monitor s/p stress --Asa, statin, BB, and ARB in place (3) Chronic systolic (congestive) heart failure Current Visit: Yes Status: Acute Code(s): I50.22 - CHRONIC SYSTOLIC ( CONGESTIVE) HEART FAILURE SNOMED Code(s): 571216059 Comment: 2/2 to NICM thought to be viral in 2014. -Home medications, encourage meaninful engagement in cardiology (4) CKD (chronic kidney disease), stage III Current Visit: Yes Status: Acute Code(s): N18.3 - CHRONIC KIDNEY DISEASE, STAGE 3 (MODERATE) SNOMED Code(s): 306004729 Comment: Appears at baseline, Cr ~1.3 -Losartan 25mg home dose, here at 50mg -Remains on PO Lasix for volume mgmt per home med Status and Disposition: Will d/c to home
--- NOTE | 2018-08-20 01:11 | DS ---
DISCHARGE SUMMARY: DATE OF ADMISSION: 08/18/18 DATE OF DISCHARGE: 08/19/18 ATTENDING PHYSICIAN: Dr. Yakelin Obrien. PRIMARY DIAGNOSES: 1. Atypical chest pain. 2. Elevated troponin. SECONDARY DIAGNOSES: 1. Chronic systolic congestive heart failure. 2. Chronic kidney disease stage III. MEDICATIONS AT TIME OF DISCHARGE: 1. Losartan 25 mg p.o. daily. 2. Aspirin 81 mg p.o. daily. 3. Furosemide 40 mg p.o. daily. The only medication change was the addition of aspirin 81 mg. HOSPITAL COURSE: Mr. Mccracken is a 67-year-old male with a distant history of a viral nonischemic cardiomyopathy with ejection fraction of 20% noted in 2014, also last cath in 2014 showed a 40% circumflex lesion. Otherwise, CKD III and otherwise healthy gentleman who presented to the emergency room for chest pain and initially in the emergency room, he did not have any EKG changes, but was noted to have an elevated troponin to 0.24. Troponins were trended throughout his stay here and continued to rise to a surinder of 1.24. Cardiology was consulted and made the decision to do a nuclear medicine stress test on this patient, which was completed on 08/19/18. Nuclear medicine stress showed that findings were most consistent with a cardiomyopathy with a significantly decreased left ventricular ejection fraction that was calculated to be 17%. At this time of hospitalization, there was no evidence for significant ischemic change. Eventually, troponins trended down by day 2 and from a max of 1.24, they reached 0.3 at the time of discharge. Cardiology felt that the troponin elevation was secondary to demand ischemia in the setting of heart failure worsening and not secondary to an acute ischemic event given negative nuclear medicine scan and catheterization in 2014 showing only 40% lesion in circumflex only. For his chest pain, Mr. Mccracken felt that it had resolved at the time of discharge. He attributed the entire event to a logging injury that had occurred some time ago. We encouraged him for a close followup with a construction stonemason, which he had been lost to follow up for some time according to both his and the patient. Of note, he continues to have persistently depressed ejection fraction with global hypokinesis and EF of 20% that has not resolved since 2015. He declines LifeVest and he declines any other heart failure treatment besides his home medications, which were as noted, Lasix, losartan, and aspirin. He will follow up with his outpatient construction stonemason to discuss optimizing his heart failure treatments to determine if his atypical chest pain was in fact a result of demand ischemia in the setting of worsening heart failure. On physical exam his last day, he was a well-appearing man, in bed, very pleasant. He had regular rate and rhythm. No murmurs, rubs, or gallops. No JVD was appreciated. He was clear to auscultation bilaterally. His abdominal exam was normoactive bowel sounds, no tenderness, no distention. He had no edema in his extremities. His skin was unremarkable, and neurologically, he was alert and oriented x3. Of note, while his troponins were rising, he was on a heparin drip while awaiting a nuclear medicine scan. After the nuclear medicine scan showed to have no ischemic event, he was discontinued off the heparin drip. On day of discharge, his labs had returned to baseline. His CBC was notable for a white blood cell count of 6.4, hemoglobin 44, hematocrit 94, platelets 157. His BMP was notable for sodium 139, potassium 4.1, chloride 104, BUN 25, creatinine 1.39, and a glucose of 112. As I said, troponins trended down on day of discharge to 0.3. We again encouraged followup with both his primary care and reengaging in cardiac care for his persistent systolic heart failure secondary to nonischemic cardiomyopathy from 2014. DISPOSITION: To home. DIET: Low-sodium diet. ACTIVITY: As tolerated. FOLLOWUP PLAN: 1. To follow up with his primary care doctor. 2. To follow up with Cardiology who is Dr. Arvizu at [place]. TIME SPENT: Approximately 60 minutes were spent in the discharge of this patient and more than half of that time was spent with the patient at the bedside reviewing the events leading up to this hospitalization and during the hospitalization, performing the physical examination, and reviewing the plan of care. I answered all of the family's questions and gave them opportunity to follow up with their primary care and with Cardiology. They had no further questions and were discharged to home. [id number]/CPS #: [id number] MTDD
== END 2018-08-19 14:33 | disposition home or self-care (01) ==
LOC: ED 01:43 → MEDTELE 03:43
PROVIDERS: ADMIT Internal Medicine; ATTEND Internal Medicine
DX: R07.89 Other chest pain (principal); I50.22 Chronic systolic (congestive) heart failure; N18.3 Chronic kidney disease, stage 3 (moderate); Z79.82 Long term (current) use of aspirin; R06.02 Shortness of breath; Z87.891 Personal history of nicotine dependence
CPT/HCPCS: 36415; 71045; 78452; 80048; 80053; 83605; 83735; 83880; 84484; 85025; 85610; 85730; 93005; 93017; 96372; 96374; 96375; 96376; 99284; A9270-GY; A9502; G0378; J1644; J1650; J1940; J2270; J2405; J2785

== ENCOUNTER 2018-10-06 16:29 | Inpatient (IN) | payer MEDICARE, OTHER ==
[2018-10-06 16:57] LABS: ABS Basophils 0.1 10^3/ul (0-0.2); ABS Eosinophils 0.2 10^3/ul (0-0.6); ABS Lymphocytes 2.8 10^3/ul (1.0-4.8); ABS Monocytes 1.1 10^3/ul (0-0.8); ABS Neutrophils 5.3 10^3/ul (1.5-7.7); ABS Nucleated RBC 0 10^3/ul; Eosinophil % 1.6 %; Hematocrit 49 % (42-52); Hemoglobin 16.8 g/dl (14.0-18.0); Lymphocyte % 29.8 %; Mean Corpuscular HGB Conc 35 g/dl (31-36); Mean Corpuscular Hemoglobin 32 pg (27-31); Mean Corpuscular Volume 93 fL (80-94); Mean Platelet Volume 9.6 fL (7.4-10.4); Nucleated Red Blood Cells % 0.1; Platelet Count 217 10^3/ul (150-450); Red Blood Count 5.22 10^6/ul (4.00-5.40); Red Cell Distribution Width 14 % (10.5-15); White Blood Count 9.5 10^3/ul (3.5-10.8)
[2018-10-06] MEDS ORDERED: Diltiazem IV* 5 MG/ML 5 ML VIAL (for loading dose/IV Push) (25 MG) IV SLOW PU ONE ×3 (16:58→18:43)
--- NOTE | 2018-10-06 16:59 | ED ---
HPI Cardiac - HPI Summary HPI Summary: Pt is a 67 y/o M presenting to the ED with a chief complaint of cardiac issues. He broke his sternum last year and does not think it ever healed, has resulting chest pain intermittently that is worse with coughing/sneezing. He was at [facility] today where they noted his HR was 165 and they wanted him to go to the emergency room. The pt denies any fever, chills, erythema of eyes, sore throat, CP, SOB, cough, abdominal pain, N/V, dysuria, hematuria, myalgia, edema, rash, lightheadedness, weakness, or dizziness. - History of Current Complaint Chief Complaint: EDDysrhythmPalp Stated Complaint: RAPID HR Time Seen by Provider: 10/06/18 16:45 Hx Obtained From: Patient Onset/Duration: Started Hours Ago, Still Present Timing: Constant, Lasting Hours Initial Severity: Mild Current Severity: Mild Pain Intensity: 2 Pain Scale Used: 0-10 Numeric Chest Pain Location: Mid Sternal Chest Pain Radiates: No Character: Fast Aggravating Factor(s): Nothing Alleviating Factor(s): Nothing Associated Signs and Symptoms: Positive: Chest Pain. Negative: Dizziness, Shortness of Breath, Fever, Chills, Lightheadedness, Diaphoresis, Nausea, Palpitations, Cough, Abdominal Pain, Vomiting, Edema - Additional Pertinent History Primary Care Physician: [id number] - Allergy/Home Medications Allergies/Adverse Reactions: Allergies Allergy/AdvReac Type Severity Reaction Status Date / Time ANETTE Inhibitors Allergy Swelling Verified 08/18/18 04:17 Of Face,Lips,& Throat procaine [From Novocain] Allergy Nausea And Verified 08/18/18 03:52 Vomiting PMH/Surg Hx/FS Hx/Imm Hx Previously Healthy: No Endocrine/Hematology History: Denies: Hx Diabetes Cardiovascular History: Reports: Hx Angina, Hx Congestive Heart Failure, Hx Coronary Artery Disease, Hx Hypertension Denies: Hx Hypercholesterolemia, Hx Myocardial Infarction Respiratory History: Denies: Hx Asthma History: Reports: Other Problems/Disorders - nephrosis at 3 yo Musculoskeletal History: Reports: Other Musculoskeletal History - fractured L1- L4, fractured sternum Sensory History: Denies: Hx Contacts or Glasses, Hx Hearing Aid Opthamlomology History: Denies: Hx Contacts or Glasses - Surgical History Surgery Procedure, Year, and Place: [facility] Infectious Disease History: No Infectious Disease History: Denies: History Other Infectious Disease, Traveled Outside the [place] in Last 30 Days - Family History Known Family History: Positive: Diabetes - Social History Alcohol Use: None Hx Substance Use: No Substance Use Type: Reports: None Hx Tobacco Use: Yes Smoking Status (MU): Former Smoker Type: Cigars Have You Smoked in the Last Year: No Review of Systems Negative: Fever, Chills, Skin Diaphoresis Negative: Erythema Negative: Sore Throat Positive: Chest Pain - due to sternum injury, Other - fast heat rate Negative: Cough Negative: Abdominal Pain, Vomiting, Nausea Negative: dysuria, hematuria Negative: Myalgia, Edema Negative: Rash Neurological: Negative - dizziness, lightheadedness Negative: Weakness All Other Systems Reviewed And Are Negative: Yes Physical Exam - Summary Physical Exam Summary: Constitutional: Well-developed, Well-nourished, Alert. (-) Distressed Skin: Warm, Dry HENT: Normocephalic; Atraumatic Eyes: Conjunctiva normal Neck: Musculoskeletal ROM normal neck. (-) JVD, (-) Stridor, (-) Tracheal deviation Cardio: Thready rapid pulse which is sometimes irregular. Heart sounds normal; Intact distal pulses; The pedal pulses are 2+ and symmetric. Radial pulses are 2 + and symmetric. (-) Murmur Pulmonary/Chest wall: Effort normal. (-) Respiratory distress, (-) Wheezes, (-) Rales Abd: Soft, (-) tenderness, (-) Distension, (-) Guarding, (-) Rebound Musculoskeletal: (-) Edema Lymph: (-) Cervical adenopathy Neuro: Alert, Oriented x3 Psych: Mood and affect Normal Triage Information Reviewed: Yes Vital Signs On Initial Exam: Initial Vitals Temp Pulse Resp BP Pulse Ox 97.8 F 165 20 125/104 98 10/06/18 16:33 10/06/18 16:33 10/06/18 16:33 10/06/18 16:33 10/06/18 16:33 Vital Signs Reviewed: Yes Diagnostics - Vital Signs Vital Signs Temp Pulse Resp BP Pulse Ox 10/06/18 16:33 97.8 F 165 20 125/104 98 - Laboratory Result Diagrams: 10/09/18 13:28 10/09/18 13:28 Lab Statement: Any lab studies that have been ordered have been reviewed, and results considered in the medical decision making process. - EKG 1650 Cardiac Rate: Tachycardia - 163bpm EKG Rhythm: Sinus Tachycardia ST Segment: Normal Ectopy: None Summary of EKG Findings: Extreme tachycardia w/ wide complex. Baseline wander in lead V4. Re-Evaluation - Re-Evaluation 1st re-eval Re-Evaluation Time: 18:43 Change: Unchanged Comment: Pt's HR is back up to 160, another bolus will be given. Disposition - Course Course Of Treatment: Pt is a 67 y/o M presenting to the ED with a chief complaint of cardiac issues. He broke his sternum last year and does not think it ever healed, has resulting chest pain intermittently that is worse with coughing/sneezing. He was at [facility] today where they noted his HR was 165 and they wanted him to go to the emergency room. The pt denies any fever, chills, erythema of eyes, sore throat, CP, SOB, cough, abdominal pain, N/V, dysuria, hematuria, myalgia, edema, rash, lightheadedness, weakness, or dizziness. The pt 's corporate learning consultant reportedly requested a TTE be performed, along with cardioversion and anticoagulation. I discussed the case with Dr. Odell who recommended Eliquis and aspirin tonight, and cardioversion in the morning under monitor of EKG. The pt's dx will include elevated troponin and atrial flutter w / RVR. As of 184, the pt's HR is elevated again to 160 and will be given a second bolus. - Diagnoses Provider Diagnoses: Elevated troponin, Atrial flutter with rapid ventricular response - Critical Care Time Critical Care Time: 30-74 min - 60 minutes Discharge - Sign-Out/Discharge Documenting (check all that apply): Patient Departure - Discharge Plan Condition: Stable Disposition: ADMITTED TO [facility] - Billing Disposition and Condition Condition: STABLE Disposition: Admitted to [facility] - Attestation Statements Document Initiated by Scribe: Yes Documenting Scribe: Mallory Cooper Provider For Whom Tiburcioibe is Documenting (Include Credential): Shiva Sherman MD. Scribe Attestation: Mallory Ventura, scribed for Shiva Sherman MD. on 10/09/18 at 2054. Scribe Documentation Reviewed: Yes Provider Attestation: The documentation as recorded by the scribe, Mallory Cooper accurately reflects the service I personally performed and the decisions made by me, Shiva Sherman MD. Status of Scribe Document: Viewed
[2018-10-06 17:20] LABS: ALT 33 U/L (7-52); AST 68 U/L (13-39); Albumin/Globulin Ratio 1.1 (1-3); Alkaline Phosphatase 68 U/L (34-104); Anion Gap 11 mmol/L (2-11); BUN/Creatinine Ratio 15.5 (8-20); Blood Urea Nitrogen 22 mg/dL (6-24); CO2 Carbon Dioxide 26 mmol/L (22-32); Calcium 9.5 mg/dL (8.6-10.3); Chloride 103 mmol/L (101-111); EGFR African American 60.4 (>60); EGFR Non-African American 49.9 (>60); Globulin 3.7 g/dL (2-4); Glucose 126 mg/dL (70-100); Potassium 3.9 mmol/L (3.5-5.0); Sodium 140 mmol/L (135-145); Total Protein 7.7 g/dL (6.4-8.9)
[2018-10-06 17:22] LABS: Troponin I 2.42 ng/mL (<0.04)
[2018-10-06] MEDS ORDERED: Diltiazem TAB* 30 MG PO ONE (17:55)
[2018-10-06] MEDS ORDERED: Aspirin 81 mg CHEW TAB* 81 MG TAB.CHEW PO ONE (18:02)
[2018-10-06] MEDS ORDERED: Apixaban* 5 MG TAB PO ONE (18:04)
[2018-10-06 18:31] LABS: Free T4 1.06 ng/dL (0.61-1.12)
[2018-10-06] MEDS ORDERED: Metoprolol Tartrate TAB* 25 MG PO ONE (18:59)
[2018-10-06] MEDS ORDERED: Diltiazem IV VIAL* 125 MG in NS 0.9% 100 ML* 100 ML IVPB ONE (19:01)
[2018-10-06] MEDS ORDERED: Magnesium Sulfate 2 GM IV* 2 GM/50 ML BAG IVPB ONE (19:08)
[2018-10-06] MEDS ORDERED: Potassium Chlor TAB* 20 MEQ TAB.ER PO ONE (19:08)
[2018-10-06] MEDS ORDERED: Acetaminophen TAB* 325 MG PO PRN (19:09)
[2018-10-06] MEDS ORDERED: Ondansetron INJ* 2 MG/ML VIAL IV PRN (19:09)
[2018-10-06] MEDS ORDERED: Diltiazem IV VIAL* 125 MG in NS 0.9% 100 ML* 100 ML IV SCH (20:00)
[2018-10-06 20:40] LABS: Troponin I 4.65 ng/mL (<0.04)
--- NOTE | 2018-10-06 20:57 | HP ---
CC: Dr. Strong; Dr. Arvizu * HISTORY AND PHYSICAL: DATE OF ADMISSION: 10/06/18 PRIMARY CARE PROVIDER: Dr. Strong. RECONSTRUCTIVE DENTIST: Dr. Arvizu. ATTENDING PHYSICIAN: Dr. Karri Isidro * (dictation provided by Geensis Cotto NP ). CHIEF COMPLAINT: Fast heart rate. HISTORY OF PRESENT ILLNESS: Mr. 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 Mr. Mccracken states he was in his normal state of health recently. As of a few months ago he had had a prolonged illness with bronchitis -type symptoms, but he has recovered from that completely. Today, he went to see Dr. Arvizu and described some chest discomfort. EKG there revealed concern for atrial fibrillation or atrial flutter and he was immediately sent to the emergency room for evaluation. In the emergency room, Mr. Mccracken was confirmed to be in atrial flutter. His heart rate was up to 160. He has been given multiple rounds of diltiazem and is now being started on diltiazem drip and his heart rate is running 90, in AFlutter. His labs show a potassium of 3.9, a magnesium of 2.0, a troponin of 2.42, a TSH of 8.4, and a free T4 of 106. I will note that the patient was just hospitalized for concern of chest pain in August and at that time he had a stress test and an echocardiogram, which failed to show any evidence of ischemia, but continued to show his ejection fraction was quite diminished, estimated to be 20% to 25% on echocardiogram. PAST MEDICAL HISTORY: Viral nonischemic cardiomyopathy in 2014 in the setting of a viral pneumonia, ejection fraction 20% with chronic systolic congestive heart failure, and chronic kidney disease stage III. MEDICATIONS: Outpatient medications are: 1. Aspirin 81 mg p.o. daily. 2. Losartan 25 mg p.o. daily. 3. Furosemide 40 mg p.o. daily. ALLERGIES: ANETTE INHIBITORS and PROCAINE. FAMILY HISTORY: The patient reports his mother had multiple cancers, but ultimately after a fall. His dad had diabetes and heart disease. SOCIAL HISTORY: The patient is a former smoker, but he quit in the 70s. He is a former drinker, but has not drank since 2015. No reported drug use. He lives with his who is his healthcare proxy. REVIEW OF SYSTEMS: A 14-point review of systems was completed with Mr. Mccracken and all those not mentioned above were negative. PHYSICAL EXAMINATION GENERAL: Mr. Mccracken is sitting in bed, he is in no acute distress. VITAL SIGNS: Temperature 97.8, pulse rate is running about 90 just after a diltiazem bolus, respiratory rate is 20, O2 saturation 96% on room air, and blood pressure 101/81. LUNGS: Clear to auscultation bilaterally. No accessory muscle use and good aeration. HEART: S1 and S2, very rapid. ABDOMEN: Soft and nontender, with bowel sounds positive x4. EXTREMITIES: No cyanosis, no edema. SKIN: Intact. NEUROLOGIC: He is alert, he is oriented x3, moves all extremities equally. There is no facial asymmetry or focal weakness. Extraocular movements are intact. LABORATORY DATA: Sodium 140, potassium 3.9, chloride 103, serum bicarbonate 26 , BUN 22, creatinine 1.42, glucose 126, lactic acid 1.6, AST 68, ALT 33, alk phos 68, troponin 2.42, TSH 8.40, free T4 of 1.06. WBC 9.5, hemoglobin 16.8, hematocrit 49, platelet count 217. EKG shows atrial flutter with a heart rate of about 160. ASSESSMENT: Mr. 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 Our plans are for observation in the hospital for the followin. New onset rapid atrial fibrillation: The patient has been responding thus far well to diltiazem and a drip is being initiated now. If this proves effective for him we can transition him over to Cardizem orally. The patient is completely stable tonight. 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 He is being placed on Apixaban. I am holding his losartan for tonight just that we have adequate blood pressure to adjust diltiazem drip, but we will need to add back in an ARB. 2. Nonischemic cardiomyopathy: The patient is on losartan as an outpatient, but not on a beta-ace. He has no recollection of why he is not on this medication. He certainly would benefit from that if he can tolerate it at the time of discharge. 3. Elevated troponin: I suspect his elevated troponin is due to rapid heart rate. We will trend and control heart rate as per above. 4. DVT prophylaxis with Apixaban. 5. Code status is full code. TIME SPENT: Approximately 60 minutes were spent with the patient at the bedside reviewing the events leading up to this hospitalization, performing the physical examination, and reviewing my plan of care. GENESIS COTTO NP [id number]/[facility] #: [id number] JEROMY
[2018-10-06] MEDS ORDERED: diPHENhydraMINE PO* 25 MG PO PRN (22:15)
[2018-10-06] MEDS ORDERED: Diltiazem TAB* 30 MG PO SCH (22:30)
[2018-10-07] MEDS ORDERED: Diltiazem TAB* 30 MG PO SCH
--- NOTE | 2018-10-07 00:08 | PN ---
Progress Note - Progress Note Date of Service: 10/07/18 Note: Patient with persistent heart rate in 120-130s, will start diltiazem drip and hold PO diltiazem
[2018-10-07 00:14] LABS: Troponin I 4.85 ng/mL (<0.04)
[2018-10-07] MEDS ORDERED: Diltiazem IV VIAL* 125 MG in NS 0.9% 100 ML* 100 ML IV SCH (01:00)
[2018-10-07] MEDS: Diltiazem IV VIAL* 125 MG in NS 0.9% 100 ML* 100 ML IV SCH ×3 (03:38→12:41)
[2018-10-07] MEDS: Apixaban* 5 MG TAB PO SCH ×2 (05:45→17:40)
[2018-10-07 07:34] LABS: Troponin I 5.04 ng/mL (<0.04)
[2018-10-07] MEDS: Digoxin IV* 0.5 MG/2 ML AMP (0.25 MG/ML) IV SLOW PU SCH ×2 (08:37→13:47)
[2018-10-07 10:00] LABS: Troponin I 4.12 ng/mL (<0.04)
--- NOTE | 2018-10-07 13:17 | CONS ---
CC: Dr. Duarte Arvizu; Dr. Quinn Strong at [facility] * CARDIOLOGY CONSULTATION: DATE OF CONSULT: 10/07/18 INDICATION FOR CONSULTATION: Atrial fibrillation. HISTORY OF PRESENT ILLNESS: The patient is a 67-year-old gentleman with a history of nonischemic cardiomyopathy, who came to the hospital after being seen by Dr. Arvizu and found to be in atrial fibrillation. The patient states that for about a week he had been feeling poor. He had no appetite, just lethargic. Denied any orthopnea. Denied any palpations. Denied any lightheadedness, dizziness or syncope. The patient does have chronic chest pain from a sternal fracture many years ago. This has not changed in his presentation. In Dr. Arvizu's office, the patient was to be in atrial flutter with rapid ventricular response. He was urged to come to the emergency room and be admitted. He was admitted to the hospital last night. He was started on a Cardizem drip. This morning his heart rates are 100 in atrial flutter. PAST MEDICAL HISTORY: Significant only for his nonischemic cardiomyopathy, history of chest trauma from a fall many years ago. The patient did have a cardiac catheterization in 2014, which showed a 40% stenosis to his left circumflex artery and a 20% stenosis to his right coronary artery. MEDICATIONS: Outpatient medications: 1. Losartan 50 mg b.i.d. 2. Lasix 40 mg a day. 3. Aspirin 81 mg a day. ALLERGIES: ANETTE INHIBITORS and PROCAINE. FAMILY HISTORY: No family history of early coronary artery disease or cardiomyopathy. SOCIAL HISTORY: He is . He is retired. He denies tobacco or alcohol use. REVIEW OF SYSTEMS: Positive for anorexia, positive for fatigue, positive for shortness of breath. Negative for change in weight. Negative for change in bowel or bladder habits. Other 12-point review is unremarkable. PHYSICAL EXAM: Height 5 feet 7 inches, weight is 237 pounds, temperature 98.1, heart rate 112, respiratory rate 20, blood pressure 100/53, oxygen saturation 96 % on room air. Sclerae anicteric. Oropharynx is pink without erythema. Carotids are 2+ without bruits. JVD is normal. Thyroid is normal. Cardiac Exam: S1, S2 without any murmurs, rubs or gallops. Lungs are clear to auscultation bilaterally. There is no dullness to percussion. Abdomen is soft , nontender, nondistended with normoactive bowel sounds. Extremities show no edema. He has 2+ pulses throughout. The patient is awake, alert, and oriented. He moves all 4 extremities equally. DIAGNOSTIC STUDIES/LAB DATA: White cell count 9.5, hemoglobin 16, hematocrit 49 , platelet count 217. Chemistries within normal limits. BUN 22, creatinine 1.4 , creatinine clearance is 60. AST and ALT are normal. Peak troponin level was 5, likely secondary to band ischemia. TSH is 8.4 with a free T4 of 1.06. IMPRESSION: This is a 67-year-old gentleman with a history of nonischemic cardiomyopathy, who went to see his primary ranch hand yesterday and was found to be in atrial flutter with rapid ventricular response. The patient was transferred to the emergency room. The patient was placed on Eliquis 5 mg twice a day. He was placed on a Cardizem drip. I had a long discussion with the patient regarding his atrial flutter, regarding treatments. The patient will undergo transesophageal echocardiogram and likely cardioversion to normal sinus rhythm. The patient will likely need an antiarrhythmic to ensure maintenance of normal sinus rhythm given his cardiomyopathy. The patient will be started on Tikosyn after his cardioversion, he will stay in the hospital for 3 days for loading of Tikosyn. I will probably also start a beta ace on this patient given his cardiomyopathy and tendency towards arrhythmias. [id number]/[facility] #: [id number] MTDD
[2018-10-07 14:04] LABS: Magnesium 1.9 mg/dL (1.9-2.7)
[2018-10-07] MEDS ORDERED: Flumazenil* 0.1 MG/ML 5 ML MDV ONE (14:53)
[2018-10-07] MEDS ORDERED: Naloxone* 0.4 MG/ML 1 ML VIAL ONE (14:53)
[2018-10-07] MEDS ORDERED: Midazolam* 1 MG/ML 5 ML VIAL (5 MG) ONE ×2 (14:53→16:35)
[2018-10-07] MEDS ORDERED: fentaNYL* 50 MCG/ML 2 ML VIAL (100 MCG VIAL) ONE (14:53)
[2018-10-07] MEDS ORDERED: Ondansetron INJ* 2 MG/ML VIAL ONE (15:45)
--- NOTE | 2018-10-07 19:15 | PN ---
Subjective Date of Service: 10/07/18 Interval History: Patient seen and examined at bedside. Denies fever, chills, shortness of breath , palpitations, chest discomfort, N/V/D. Tele: Afib --> sinus rhythm, rate 80-120's. Currently sinus rhythm, rate 80's Family History: Unchanged from Admission Social History: Unchanged from Admission Past Medical History: Unchanged from Admission Objective Active Medications: Acetaminophen (Tylenol Tab*) 650 mg PO Q6H PRN Reason: PAIN Apixaban (Eliquis*) 5 mg PO Q12H VASQUEZ Carvedilol (Coreg Tab*) 3.125 mg PO BID VASQUEZ Diphenhydramine HCl (Benadryl Po*) 25 mg PO BEDTIME PRN Reason: INSOMNIA Dofetilide (Tikosyn Cap*) 500 mcg PO BID [facility] Vital Signs - 8 hr 10/07/18 10/07/18 10/07/18 11:14 11:36 12:50 Temperature 97.5 F Pulse Rate 94 Respiratory 20 Rate Blood Pressure 150/80 145/119 142/83 (mmHg) O2 Sat by Pulse 96 Oximetry 10/07/18 10/07/18 10/07/18 13:14 13:47 13:51 Temperature Pulse Rate 115 Respiratory Rate Blood Pressure 140/80 134/80 (mmHg) O2 Sat by Pulse Oximetry 10/07/18 10/07/18 10/07/18 15:28 15:58 16:00 Temperature Pulse Rate 53 72 55 Respiratory Rate Blood Pressure 117/67 123/70 (mmHg) O2 Sat by Pulse 95 96 95 Oximetry 10/07/18 10/07/18 10/07/18 16:28 16:32 16:36 Temperature Pulse Rate 113 113 Respiratory Rate Blood Pressure 122/78 106/89 129/100 (mmHg) O2 Sat by Pulse 97 95 Oximetry 10/07/18 10/07/18 10/07/18 16:42 16:46 16:51 Temperature Pulse Rate 124 88 75 Respiratory 14 Rate Blood Pressure 138/97 120/91 124/70 (mmHg) O2 Sat by Pulse 95 86 95 Oximetry 10/07/18 10/07/18 10/07/18 16:57 17:01 17:03 Temperature Pulse Rate 82 78 76 Respiratory 4 24 16 Rate Blood Pressure 108/77 98/68 100/71 (mmHg) O2 Sat by Pulse 96 96 96 Oximetry 10/07/18 10/07/18 10/07/18 17:17 17:30 17:50 Temperature 96.9 F Pulse Rate 80 80 Respiratory 25 22 Rate Blood Pressure 111/76 127/73 144/83 (mmHg) O2 Sat by Pulse 95 96 Oximetry 10/07/18 18:00 Temperature Pulse Rate 80 Respiratory Rate Blood Pressure (mmHg) O2 Sat by Pulse Oximetry Oxygen Devices in Use Now: None Appearance: NAD, sitting up on the side of the bed Ears/Nose/Mouth/Throat: Mucous Membranes Moist Respiratory: Symmetrical Chest Expansion and Respiratory Effort, Clear to Auscultation Cardiovascular: NL Sounds; No Murmurs; No JVD, RRR Abdominal: NL Sounds; No Tenderness; No Distention Extremities: No Edema Skin: No Rash or Ulcers Neurological: Alert and Oriented x 3, NL Muscle Strength and Tone Nutrition: Taking PO's Result Diagrams: 10/06/18 16:49 10/06/18 16:49 Assess/Plan/Problems-Billing Assessment: Mr. 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 - Patient Problems (1) Atrial fibrillation with RVR Code(s): I48.91 - UNSPECIFIED ATRIAL FIBRILLATION SNOMED Code(s): 700601873962906 Comment: - S/P cardioversion with Dr. Odell - Now in Sinus Rhythm - Plan for Tikosyn loading per cardiology - Continue Eliquis and Tikosyn (2) Elevated troponin Code(s): R74.8 - ABNORMAL LEVELS OF OTHER SERUM ENZYMES SNOMED Code(s): 463214112 Comment: - Denies chest pain at this time - Cardiac cath 2014 - Suspect secondary to demand ischemia in the setting of Afib with RVR - Continue carvedilol (3) Nonischemic cardiomyopathy Code(s): I42.8 - OTHER CARDIOMYOPATHIES SNOMED Code(s): 86463262 Comment: - No signs of CHF exacerbation at this time - Daily weights and strict I+O's (4) CKD (chronic kidney disease), stage III Code(s): N18.3 - CHRONIC KIDNEY DISEASE, STAGE 3 (MODERATE) SNOMED Code(s): 237393250 Comment: - Appears near baseline, Cr ~1.3 (5) DVT prophylaxis Code(s): BXE0600 - SNOMED Code(s): 424056135 Comment: - Eliquis (6) Full code status Code(s): Z78.9 - OTHER SPECIFIED HEALTH STATUS SNOMED Code(s): 080521349 Status and Disposition: OBV to INP. Will need to stay for Tikosyn loading. Discharge to home when medically stable. Attending: Karri Isidro
--- NOTE | 2018-10-07 19:37 | TEE ---
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 Technical Comments: The study quality is good. Left Ventricle: The left ventricular chamber size is severely dilated. There is diffuse global hypokinesis of the left ventricle. There is severely decreased left ventricular systolic function. The estimated ejection fraction is 20-25%. Left Atrium: The left atrium is severely dilated. No thrombus is visualized within the left atrium. There is no thrombus visualized in the left atrial appendage. Right Ventricle: The right ventricle is mildly dilated. The right ventricular global systolic function is mildly to moderately reduced. Right Atrium: The right atrium is mildly dilated. A patent foramen ovale is not demonstrated by color Doppler. Aortic Valve: The aortic valve is trileaflet. The aortic valve leaflets are mildly thickened. There is trace to mild aortic regurgitation. There is no evidence of aortic stenosis. Mitral Valve: The mitral valve leaflets are mildly thickened. There is moderate mitral regurgitation. There is no evidence of mitral stenosis. Tricuspid Valve: The tricuspid valve leaflets are normal. There is moderate tricuspid regurgitation. The right ventricular systolic pressure is estimated at 54 mmHg. There is evidence of moderate pulmonary hypertension. There is no tricuspid stenosis. Pulmonic Valve: The pulmonic valve appears normal. There is a trace pulmonic regurgitation. There is no pulmonic stenosis. Pericardium: There is no significant pericardial effusion. Pulmonary Artery: The main pulmonary artery appears normal. Venous: The bicaval view was obtained and appears normal. The pulmonary veins appear normal in size. 1 of 4 visualized. JOSE Procedures: The procedure was abbreviated due to the patient's medical condition. History and physical as well as labs were reviewed. The patient was in a fasting state. Risks and benefits of the procedure, including alternatives, were discussed and written informed consent was obtained. The patient and/or their health care client representative expressed understanding of the procedure, risks and benefits. Baseline and continuous monitoring of blood pressure, heart rate, pulse oximetry and heart rhythm was performed throughout the procedure. The appropriate time-out procedure was performed as per [facility] protocol. The patient was placed in the left lateral decubitus position. The patient received IV Midazolam with a total dose of 5 mg. The patient received IV Fentanyl with a total dose of 50 mcg. An oral bite block was inserted for protection of oral dentition. The multiplane transesophageal echocardiogram probe was inserted through the posterior oropharynx and advanced into the esophagus without difficulty. Multiple 2D images were obtained of the heart and its related structures. Color flow Doppler was used for evaluation. Procedure was aborted due to Insufficient bite block. Spectral Doppler was also used. The atrial septum was interrogated with color flow Doppler. At the conclusion of the procedure the probe was removed with continuous suction without complications. The patient tolerated the procedure with no apparent complications. Conclusions The procedure was abbreviated due to the patient's medical condition. There is diffuse global hypokinesis of the left ventricle. There is severely decreased left ventricular systolic function. The estimated ejection fraction is 20-25%. There is no thrombus visualized in the left atrial appendage. A patent foramen ovale is not demonstrated by color Doppler. There is trace to mild aortic regurgitation. There is moderate mitral regurgitation. There is moderate tricuspid regurgitation. There is evidence of moderate pulmonary hypertension. The right ventricular systolic pressure is estimated at 54 mmHg. There is no significant pericardial effusion. Measurements Name Value Normal Range TR Vmax 3.4 m/sec - TR peak gradient 46 mmHg - RAP 8 mmHg - RVSP 54 mmHg -
--- NOTE | 2018-10-07 20:07 | CARD ---
CC: Dr. Mccullough; Dr. Strong at [facility].* CARDIOVERSION NOTE: DATE OF PROCEDURE: 10/07/18 PROCEDURE: Cardioversion. INDICATION: Atrial flutter. The patient is a 67-year-old gentleman with a history of nonischemic cardiomyopathy who was admitted to the hospital yesterday with atrial fibrillation and rapid ventricular response. The patient had just undergone transesophageal echocardiogram showing no evidence of thrombus on the left atrial appendage. Cardioversion was recommended. DESCRIPTION OF PROCEDURE: The patient was given an additional 1 mg of Versed for conscious sedation. The patient was cardioverted with 150 joules of synchronized biphasic energy. The patient converted to normal sinus rhythm. The patient tolerated the procedure well with no complications. The patient will be started on Tikosyn for suppression of his atrial arrhythmias. [id number]/[facility] #: [id number] MTDD
[2018-10-07] MEDS ORDERED: Dofetilide CAP* 500 MCG PO SCH (21:00)
[2018-10-07] MEDS: Carvedilol TAB* 3.125 MG PO SCH (22:38)
[2018-10-08] MEDS: Apixaban* 5 MG TAB PO SCH ×2 (06:20→17:36)
[2018-10-08 06:36] LABS: Hematocrit 39 % (42-52); Hemoglobin 13.6 g/dl (14.0-18.0); Mean Corpuscular HGB Conc 35 g/dl (31-36); Mean Corpuscular Hemoglobin 32 pg (27-31); Mean Corpuscular Volume 93 fL (80-94); Mean Platelet Volume 9.7 fL (7.4-10.4); Platelet Count 165 10^3/ul (150-450); Red Blood Count 4.18 10^6/ul (4.00-5.40); Red Cell Distribution Width 13 % (10.5-15); White Blood Count 6.1 10^3/ul (3.5-10.8)
[2018-10-08 06:55] LABS: BUN/Creatinine Ratio 18.3 (8-20); Calcium 8.5 mg/dL (8.6-10.3); EGFR African American 81.9 (>60); EGFR Non-African American 67.7 (>60); Potassium 3.9 mmol/L (3.5-5.0)
[2018-10-08] MEDS ORDERED: Potassium Chlor TAB* 20 MEQ TAB.ER PO ONE (08:18)
--- NOTE | 2018-10-08 08:58 | PN ---
<TcGena - Last Filed: 10/08/18 08:53> Subjective Date of Service: 10/08/18 - AFL, troponin elevation Interval History: No events last night patient offers no complaints. Denies chest pain, palpitations, sensation of heart racing, orthopnea, FARLEY or dizziness. is at bedside this morning. Latoya WADE states patient had rare ventricular couplet this morning on telemetry. Medications Active Medications: Acetaminophen (Tylenol Tab*) 650 mg PO Q6H PRN PRN Reason: PAIN Apixaban (Eliquis*) 5 mg PO Q12H [facility] Last Admin: 10/08/18 06:20 Dose: 5 mg Carvedilol (Coreg Tab*) 3.125 mg PO BID [facility] Last Admin: 10/07/18 22:38 Dose: 3.125 mg Diphenhydramine HCl (Benadryl Po*) 25 mg PO BEDTIME PRN PRN Reason: INSOMNIA Last Admin: 10/06/18 22:57 Dose: 25 mg Dofetilide (Tikosyn Cap*) 500 mcg PO BID [facility] Last Admin: 10/07/18 22:38 Dose: 500 mcg Objective Vital Signs: Temp Pulse Resp BP Pulse Ox 98.0 F 81 22 115/78 97 10/08/18 08:27 10/08/18 08:27 10/08/18 08:27 10/08/18 08:27 10/08/18 08:27 Oxygen Devices in Use Now: None Appearance: A+O x3 cooperative with exam, NAD Eyes: No Scleral Icterus, PERRLA Ears/Nose/Mouth/Throat: NL Teeth, Lips, Gums, Clear Oropharnyx, Mucous Membranes Moist Neck: NL Appearance and Movements; NL JVP Respiratory: Symmetrical Chest Expansion and Respiratory Effort Cardiovascular: NL Sounds; No Murmurs; No JVD - Normal S1, S2 RRR, + diastolic murmur at left sternal border, RRR, No Edema Abdominal: NL Sounds; No Tenderness; No Distention Extremities: No Edema Skin: No Rash or Ulcers Neurological: Alert and Oriented x 3 Lines/Tubes/Other Access: Clean, Dry and Intact Peripheral IV Laboratory Results: 10/08/18 06:15 10/08/18 06:15 Total Bilirubin 0.90 mg/dL (0.2-1.0) 10/06/18 16:49 AST 68 U/L (13-39) H 10/06/18 16:49 ALT 33 U/L (7-52) 10/06/18 16:49 Alkaline Phosphatase 68 U/L (34-104) 10/06/18 16:49 Total Protein 7.7 g/dL (6.4-8.9) 10/06/18 16:49 Albumin 4.0 g/dL (3.2-5.2) 10/06/18 16:49 Globulin 3.7 g/dL (2-4) 10/06/18 16:49 Albumin/Globulin Ratio 1.1 (1-3) 10/06/18 16:49 TSH 8.40 mcIU/mL (0.34-5.60) H 10/06/18 16:49 10/06/18 10/06/18 10/06/18 16:49 20:09 23:41 Troponin I 2.42 H* 4.65 H* 4.85 H* 10/07/18 10/07/18 06:02 09:28 Troponin I 5.04 H* 4.12 H* Laboratory Results - last 24 hr 10/07/18 10/08/18 10/08/18 09:28 06:15 06:15 WBC 6.1 RBC 4.18 Hgb 13.6 L Hct 39 L MCV 93 MCH 32 H MCHC 35 RDW 13 Plt Count 165 MPV 9.7 Sodium 134 L Potassium 3.9 Chloride 104 Carbon Dioxide 23 Anion Gap 7 BUN 20 Creatinine 1.09 Est GFR ( Amer) 81.9 Est GFR (Non-Af Amer) 67.7 BUN/Creatinine Ratio 18.3 Glucose 122 H Calcium 8.5 L Magnesium 1.9 2.0 Troponin I 4.12 H* Diagnostic Imaging: JOSE 10/07/2018; LVEF 20-25%, trace-mild [place], moderate MR, moderate TR. EKG Data: EKG this morning was reviewed by myself and Dr. Coronel; today's ecg QT was 410 corrected QTc 473. Telemetry was reviewed; NSR rate 70's with rare ventricular couplet. no VT Assessment/Plan #1 PAF with newly found AFL with RVR HR in ER was 160's. s/p JOSE/CV 10/07/2018. Patient is on Eliquis therapy. He recieved his first dose of Tikosyn 500mcg at 1030 last night. corrected QTc today was 473. K+ 3.9, Mag 2. will give 20 MEQ K- Dur X1. Repeat BMP 10/09/2018. Will reduce Tikosyn to 250mcg PO BID and follow closely. #2 NICM with severe LV dysfunction; LVEF 20-25%. Compensated on exam. On Coreg 3.125mg PO BID. Not on ACEI due to allergy. #3 Demand ischemia; Troponin peaked at 3.5.2019 ( 5.04) Denies chest pain. has known 40% Lcx lesion. Stress test last month did not reveal ischemia. Will start ASA 81/day, continue coreg therapy. Unless contraindicated would recommend statin therapy for secondary prevention. #4 disposition pending course. Patient is a full code. Will check dialy ecg's and monitor daily BMP's and follow closely. Attending: Mindy Coronel <Mindy Coronel - Last Filed: 10/08/18 17:17> Medications Active Medications: Acetaminophen (Tylenol Tab*) 650 mg PO Q6H PRN PRN Reason: PAIN Apixaban (Eliquis*) 5 mg PO Q12H [facility] Last Admin: 10/08/18 06:20 Dose: 5 mg Aspirin (Aspirin 81 Mg Chew Tab*) 81 mg PO DAILY [facility] Carvedilol (Coreg Tab*) 3.125 mg PO BID [facility] Last Admin: 10/08/18 09:06 Dose: 3.125 mg Diphenhydramine HCl (Benadryl Po*) 25 mg PO BEDTIME PRN PRN Reason: INSOMNIA Last Admin: 10/06/18 22:57 Dose: 25 mg Dofetilide (Tikosyn Cap*) 125 mcg PO BID [facility] Magnesium Sulfate/Dextrose (Magnesium Sulfate 1 Gm Iv*) 1 gm in 100 mls @ 200 mls/hr IV ED ONCE ONE Stop: 10/08/18 17:36 Objective Vital Signs: Temp Pulse Resp BP Pulse Ox 97.8 F 83 20 130/73 98 10/08/18 14:47 10/08/18 14:47 10/08/18 14:47 10/08/18 14:47 10/08/18 14:47 Laboratory Results: 10/08/18 06:15 10/08/18 06:15 Total Bilirubin 0.90 mg/dL (0.2-1.0) 10/06/18 16:49 AST 68 U/L (13-39) H 10/06/18 16:49 ALT 33 U/L (7-52) 10/06/18 16:49 Alkaline Phosphatase 68 U/L (34-104) 10/06/18 16:49 Total Protein 7.7 g/dL (6.4-8.9) 10/06/18 16:49 Albumin 4.0 g/dL (3.2-5.2) 10/06/18 16:49 Globulin 3.7 g/dL (2-4) 10/06/18 16:49 Albumin/Globulin Ratio 1.1 (1-3) 10/06/18 16:49 TSH 8.40 mcIU/mL (0.34-5.60) H 10/06/18 16:49 10/06/18 10/06/18 10/06/18 16:49 20:09 23:41 Troponin I 2.42 H* 4.65 H* 4.85 H* 10/07/18 10/07/18 06:02 09:28 Troponin I 5.04 H* 4.12 H* Assessment/Plan I examined the patient personally, agree with above. The patient had a 6 beat run of MM VT and then a 4 beat run this afternoon. Has PVC's. ECG after AM dose showed QTc approx 470 ms with non specific interventricular conduction delay (IVCD). Although polymorphic VT is the main concern with Tikosyn, I decreased Tikosyn further to 125 mcg BID. 1 gram Magnesium sulfate given to get into higher range of normal. Option of pure BB instead of coreg, for ventricular and atrial ectopy in addition to CM. Future: if he would tolerate aldactone or eplerinone could benefit the patient' s CM. , and prison weight loss for centripetal obesity might additionally help.
[2018-10-08] MEDS ORDERED: Dofetilide CAP* 250 MCG PO SCH (09:00)
[2018-10-08] MEDS: Carvedilol TAB* 3.125 MG PO SCH ×2 (09:06→21:33)
--- NOTE | 2018-10-08 13:47 | PN ---
Subjective Date of Service: 10/08/18 Interval History: Patient denies chest pain or shortness of breath. denies dizziness. denies abd pain n/v/d. Family History: Unchanged from Admission Social History: Unchanged from Admission Past Medical History: Unchanged from Admission Objective Active Medications: Acetaminophen (Tylenol Tab*) 650 mg PO Q6H PRN PRN Reason: PAIN Apixaban (Eliquis*) 5 mg PO Q12H [facility] Last Admin: 10/08/18 06:20 Dose: 5 mg Aspirin (Aspirin 81 Mg Chew Tab*) 81 mg PO DAILY [facility] Carvedilol (Coreg Tab*) 3.125 mg PO BID [facility] Last Admin: 10/08/18 09:06 Dose: 3.125 mg Diphenhydramine HCl (Benadryl Po*) 25 mg PO BEDTIME PRN PRN Reason: INSOMNIA Last Admin: 10/06/18 22:57 Dose: 25 mg Dofetilide (Tikosyn Cap*) 250 mcg PO BID [facility] Last Admin: 10/08/18 10:12 Dose: 250 mcg Vital Signs - 8 hr 10/08/18 10/08/18 10/08/18 07:50 08:27 09:00 Temperature 98.0 F Pulse Rate 81 82 Respiratory 22 22 Rate Blood Pressure 115/78 (mmHg) O2 Sat by Pulse 97 Oximetry 10/08/18 11:39 Temperature 98.2 F Pulse Rate 79 Respiratory 19 Rate Blood Pressure 120/75 (mmHg) O2 Sat by Pulse 97 Oximetry Oxygen Devices in Use Now: None Appearance: sitting in the bed no acute distress Eyes: No Scleral Icterus Ears/Nose/Mouth/Throat: Clear Oropharnyx, Mucous Membranes Moist Neck: NL Appearance and Movements; NL JVP, Trachea Midline Respiratory: Symmetrical Chest Expansion and Respiratory Effort, Clear to Auscultation Cardiovascular: NL Sounds; No Murmurs; No JVD, No Edema Abdominal: NL Sounds; No Tenderness; No Distention Extremities: No Edema, No Clubbing, Cyanosis Skin: No Rash or Ulcers Neurological: Alert and Oriented x 3 Nutrition: Taking PO's Result Diagrams: 10/08/18 06:15 10/08/18 06:15 Assess/Plan/Problems-Billing Assessment: Mr. 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 - Patient Problems (1) Atrial fibrillation with RVR Current Visit: Yes Status: Acute Code(s): I48.91 - UNSPECIFIED ATRIAL FIBRILLATION SNOMED Code(s): 606460979961692 Comment: - S/P cardioversion with Dr. Odell - Now in Sinus Rhythm - Plan for Tikosyn loading per cardiology - Continue Eliquis and Tikosyn (2) Elevated troponin Current Visit: Yes Status: Acute Code(s): R74.8 - ABNORMAL LEVELS OF OTHER SERUM ENZYMES SNOMED Code(s): 750430294 Comment: - Denies chest pain at this time - Cardiac cath 2014 - Suspect secondary to demand ischemia in the setting of Afib with RVR - Continue carvedilol (3) Nonischemic cardiomyopathy Current Visit: Yes Status: Acute Code(s): I42.8 - OTHER CARDIOMYOPATHIES SNOMED Code(s): 83438327 Comment: - No signs of CHF exacerbation at this time - Daily weights and strict I+O's (4) CKD (chronic kidney disease), stage III Current Visit: No Status: Acute Code(s): N18.3 - CHRONIC KIDNEY DISEASE, STAGE 3 (MODERATE) SNOMED Code(s): 182066677 Comment: - At baseline (5) DVT prophylaxis Current Visit: No Status: Inactive Onset Date: 12/08/14 Code(s): EWM2668 - SNOMED Code(s): 569862187 Comment: - Syed (6) Full code status Current Visit: Yes Status: Acute Code(s): Z78.9 - OTHER SPECIFIED HEALTH STATUS SNOMED Code(s): 990944954 Status and Disposition: OBV to INP. Will need to stay for Tikosyn loading. Discharge to home when medically stable.
[2018-10-08] MEDS ORDERED: Magnesium Sulfate 1 GM IV* 1 GM/100 ML BAG IV ONE (17:07)
[2018-10-08] MEDS: Dofetilide CAP* 125 MCG PO SCH (21:33)
[2018-10-09] MEDS: Apixaban* 5 MG TAB PO SCH (05:11)
[2018-10-09 06:28] LABS: BUN/Creatinine Ratio 21.7 (8-20); Calcium 8.2 mg/dL (8.6-10.3); EGFR African American 84.6 (>60); EGFR Non-African American 69.9 (>60); Magnesium 2.2 mg/dL (1.9-2.7)
[2018-10-09] MEDS: Aspirin 81 mg CHEW TAB* 81 MG TAB.CHEW PO SCH (08:05)
[2018-10-09] MEDS: Dofetilide CAP* 125 MCG PO SCH (08:05)
[2018-10-09] MEDS: Carvedilol TAB* 3.125 MG PO SCH ×2 (08:05→22:04)
--- NOTE | 2018-10-09 08:57 | PN ---
<Gena Montez - Last Filed: 10/09/18 09:50> Subjective Date of Service: 10/09/18 - s/p JOSE/CV AFL now getting Tikosyn med load Interval History: No events last night patient offers no complaints. Denies chest pain, palpitations, sensation of heart racing, orthopnea, FARLEY or dizziness. is at bedside this morning. reviewed Telemetry. Patient had ocasional ventricular couplet. 6 beat episode of NSVT at 0953 9 beat count narrow complex tachycardia , At 3:15pm 10/08/2018 6 beat count of wide complex VT. no reoccurrence since, Tikosyn was reduced to 125mcg BID. I spoke to the patient's nurse who states she already administered this morning's dose. Medications Active Medications: Acetaminophen (Tylenol Tab*) 650 mg PO Q6H PRN PRN Reason: PAIN Apixaban (Eliquis*) 5 mg PO Q12H [facility] Last Admin: 10/09/18 05:11 Dose: 5 mg Aspirin (Aspirin 81 Mg Chew Tab*) 81 mg PO DAILY [facility] Last Admin: 10/09/18 08:05 Dose: 81 mg Carvedilol (Coreg Tab*) 3.125 mg PO BID [facility] Last Admin: 10/09/18 08:05 Dose: 3.125 mg Diphenhydramine HCl (Benadryl Po*) 25 mg PO BEDTIME PRN PRN Reason: INSOMNIA Last Admin: 10/06/18 22:57 Dose: 25 mg Dofetilide (Tikosyn Cap*) 125 mcg PO BID [facility] Last Admin: 10/09/18 08:05 Dose: 125 mcg Objective Vital Signs: Temp Pulse Resp BP Pulse Ox 97.0 F 70 16 120/80 97 10/09/18 07:32 10/09/18 07:32 10/09/18 07:32 10/09/18 07:32 10/09/18 07:32 Oxygen Devices in Use Now: None Appearance: A+O x3 cooperative with exam, NAD Eyes: No Scleral Icterus, PERRLA Ears/Nose/Mouth/Throat: NL Teeth, Lips, Gums, Clear Oropharnyx, Mucous Membranes Moist Neck: NL Appearance and Movements; NL JVP Respiratory: Symmetrical Chest Expansion and Respiratory Effort Cardiovascular: NL Sounds; No Murmurs; No JVD - Normal S1, S2 RRR, + diastolic murmur at left sternal border, RRR, No Edema Abdominal: NL Sounds; No Tenderness; No Distention Extremities: No Edema Skin: No Rash or Ulcers Neurological: Alert and Oriented x 3 Lines/Tubes/Other Access: Clean, Dry and Intact Peripheral IV Laboratory Results: 10/08/18 06:15 10/09/18 05:52 Total Bilirubin 0.90 mg/dL (0.2-1.0) 10/06/18 16:49 AST 68 U/L (13-39) H 10/06/18 16:49 ALT 33 U/L (7-52) 10/06/18 16:49 Alkaline Phosphatase 68 U/L (34-104) 10/06/18 16:49 Total Protein 7.7 g/dL (6.4-8.9) 10/06/18 16:49 Albumin 4.0 g/dL (3.2-5.2) 10/06/18 16:49 Globulin 3.7 g/dL (2-4) 10/06/18 16:49 Albumin/Globulin Ratio 1.1 (1-3) 10/06/18 16:49 TSH 8.40 mcIU/mL (0.34-5.60) H 10/06/18 16:49 10/06/18 10/06/18 10/06/18 16:49 20:09 23:41 Troponin I 2.42 H* 4.65 H* 4.85 H* 10/07/18 10/07/18 06:02 09:28 Troponin I 5.04 H* 4.12 H* Laboratory Results - last 24 hr 10/09/18 05:52 Sodium 135 Potassium 4.0 Chloride 106 Carbon Dioxide 24 Anion Gap 5 BUN 23 Creatinine 1.06 Est GFR ( Amer) 84.6 Est GFR (Non-Af Amer) 69.9 BUN/Creatinine Ratio 21.7 H Glucose 113 H Calcium 8.2 L Magnesium 2.2 Diagnostic Imaging: JOSE 10/07/2018; LVEF 20-25%, trace-mild [place], moderate MR, moderate TR. EKG Data: EKG this morning was reviewed by myself and corrected QTc utilizing Bazett's formula; today's ecg QT is 508 corrected, 440 uncorrected. Telemetry was reviewed; NSR rate 70's with rare ventricular couplet. no VT Assessment/Plan #1 Symptomatic AFL with RVR, HR 160's in ER. s/p JOSE CV 10/07/2018 Was started on Tikosyn 10/07/2018 at 2330. Yesterday corrected QTc was 473 Tikosyn was reduced to 125mcg BID. After medication adjusted he had 4 beat count of SVT since then rare ventricular couplet occasional ventricular ectopy. Mag and K+ are stable. He already received this mornings dose. Corrected QTc today is 504 with IVCD. will stop Tikosyn. tonight instead of getting Eliquis will start IV heparin with no bolus with stop time at 0600 on 10/10/2018. #2 NICM LVEF <35%. Patient is compensated on exam today. On coreg therapy. No ACEI due to allergy. consider Aldactone in future. #3 Presumed Demand Ischemia, Troponin peaked at 5.04 on 10/07/2018. Had normal perfusion on Stress Test in 08/2018. Has known 40% Lcx Lesion. On ASA 81/day, Coreg therapy. Npo c/o chest pain. patient had 21 beat count of VT on 10/06/2018 prior to Tikosyn. Will plan on diagnostic LHC 10/09/2018. Patient will likely need to f/u with EP given not a candidate for Tikosyn and given LV dysfunction. Dr. Fung and Dr. Chen agreeable to plan of care. I personally spoke with both of them. #4 VT; Patient had 21 beat count of monomorphic wide complex VT 10/06/2018. Since then occasional PVC with rare couplet. Yesterday had 4 beat count of NSVT. Tikosyn to be discontinued. Plan diagnostic C tomorrow has known 40% Lcx lesion. Attending: Hoang Chen <Hoang Chen - Last Filed: 10/09/18 18:37> Medications Active Medications: Acetaminophen (Tylenol Tab*) 650 mg PO Q6H PRN PRN Reason: PAIN Aspirin (Aspirin 81 Mg Chew Tab*) 81 mg PO DAILY [facility] Last Admin: 10/09/18 08:05 Dose: 81 mg Atorvastatin Calcium (Lipitor*) 40 mg PO 2100 [facility] Carvedilol (Coreg Tab*) 3.125 mg PO BID [facility] Last Admin: 10/09/18 08:05 Dose: 3.125 mg Diphenhydramine HCl (Benadryl Po*) 25 mg PO BEDTIME PRN PRN Reason: INSOMNIA Last Admin: 10/06/18 22:57 Dose: 25 mg Diphenhydramine HCl (Benadryl Iv*) 25 mg SLOW PUSH ONCE PRN 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77-1.02) H 10/09/18 13:28 APTT 32.6 seconds (26.0-36.3) 10/09/18 13:28 Total Bilirubin 0.90 mg/dL (0.2-1.0) 10/06/18 16:49 AST 68 U/L (13-39) H 10/06/18 16:49 ALT 33 U/L (7-52) 10/06/18 16:49 Alkaline Phosphatase 68 U/L (34-104) 10/06/18 16:49 Total Protein 7.7 g/dL (6.4-8.9) 10/06/18 16:49 Albumin 4.0 g/dL (3.2-5.2) 10/06/18 16:49 Globulin 3.7 g/dL (2-4) 10/06/18 16:49 Albumin/Globulin Ratio 1.1 (1-3) 10/06/18 16:49 TSH 8.40 mcIU/mL (0.34-5.60) H 10/06/18 16:49 10/06/18 10/06/18 10/06/18 16:49 20:09 23:41 Troponin I 2.42 H* 4.65 H* 4.85 H* 10/07/18 10/07/18 06:02 09:28 Troponin I 5.04 H* 4.12 H* Assessment/Plan Counseling and/or Coordination of Care Minutes: Note reviewed, patient seen, and d/w patient and Ms. Montez. Agree w/plan Points of Discussion: More than half of the 40 plus minutes was in face and coordination of care.
[2018-10-09] MEDS ORDERED: diPHENhydraMINE IV* 50 MG/ML 1 ml VIAL (BENADRYL) SLOW PUSH PRN (09:44)
[2018-10-09] MEDS ORDERED: Heparin VIAL(*) 5000 UNITS/ML VIAL (FIVE THOUSAND) IV PRN (09:54)
[2018-10-09 13:38] LABS: ABS Basophils 0.1 10^3/ul (0-0.2); ABS Eosinophils 0.2 10^3/ul (0-0.6); ABS Lymphocytes 1.3 10^3/ul (1.0-4.8); ABS Monocytes 0.4 10^3/ul (0-0.8); ABS Neutrophils 4.2 10^3/ul (1.5-7.7); ABS Nucleated RBC 0 10^3/ul; Eosinophil % 3.8 %; Hematocrit 44 % (42-52); Hemoglobin 14.7 g/dl (14.0-18.0); Lymphocyte % 21.4 %; Mean Corpuscular HGB Conc 34 g/dl (31-36); Mean Corpuscular Hemoglobin 32 pg (27-31); Mean Corpuscular Volume 94 fL (80-94); Mean Platelet Volume 9.6 fL (7.4-10.4); Nucleated Red Blood Cells % 0.1; Platelet Count 207 10^3/ul (150-450); Red Blood Count 4.65 10^6/ul (4.00-5.40); Red Cell Distribution Width 13 % (10.5-15); White Blood Count 6.3 10^3/ul (3.5-10.8)
[2018-10-09 13:47] LABS: Activated Partial Thrombo Time 32.6 seconds (26.0-36.3); INR 1.25 (0.77-1.02)
--- NOTE | 2018-10-09 16:05 | PN ---
Subjective Date of Service: 10/09/18 Interval History: Denies chest pain or shortness of breath. Denies abd pain n/v/d. Denies dizziness. Patient noted to have v tach on the monitor last evening 6 beats - asymptomatic , denies dizziness or palpitations Family History: Unchanged from Admission Social History: Unchanged from Admission Past Medical History: Unchanged from Admission Objective Active Medications: Acetaminophen (Tylenol Tab*) 650 mg PO Q6H PRN PRN Reason: PAIN Aspirin (Aspirin 81 Mg Chew Tab*) 81 mg PO DAILY [facility] Last Admin: 10/09/18 08:05 Dose: 81 mg Atorvastatin Calcium (Lipitor*) 40 mg PO 2100 [facility] Carvedilol (Coreg Tab*) 3.125 mg PO BID [facility] Last Admin: 10/09/18 08:05 Dose: 3.125 mg Diphenhydramine HCl (Benadryl Po*) 25 mg PO BEDTIME PRN PRN Reason: INSOMNIA Last Admin: 10/06/18 22:57 Dose: 25 mg Diphenhydramine HCl (Benadryl Iv*) 25 mg SLOW PUSH ONCE PRN PRN 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 Heparin Sodium (Porcine) (Heparin Vial(*)) 0 units IV .PER PROTOCOL PRN PRN Reason: SEE PROTOCOL Sodium Chloride (Ns 0.9% 1000 Ml) 1,000 mls @ 50 mls/hr IV .per rate [facility] Heparin Sodium/Dextrose (Heparin Drip 25,000 Units(*)) 25,000 units in 500 mls @ 0 mls/hr IV PER RATE [facility]; Protocol Stop: 10/10/18 06:00 Vital Signs - 8 hr 10/09/18 10/09/18 09:00 11:30 Temperature 97.7 F Pulse Rate 79 79 Respiratory 16 Rate Blood Pressure 132/76 (mmHg) O2 Sat by Pulse 96 Oximetry Oxygen Devices in Use Now: None Appearance: appears comfortable resting in bed, no acute distress Eyes: No Scleral Icterus Ears/Nose/Mouth/Throat: Clear Oropharnyx, Mucous Membranes Moist Neck: NL Appearance and Movements; NL JVP, Trachea Midline Respiratory: Symmetrical Chest Expansion and Respiratory Effort, Clear to Auscultation Cardiovascular: NL Sounds; No Murmurs; No JVD, No Edema Abdominal: NL Sounds; No Tenderness; No Distention Extremities: No Edema, No Clubbing, Cyanosis Skin: No Rash or Ulcers Neurological: Alert and Oriented x 3 Nutrition: Taking PO's Result Diagrams: 10/09/18 13:28 10/09/18 13:28 Assess/Plan/Problems-Billing Assessment: Mr. 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 - Patient Problems (1) Atrial fibrillation with RVR Current Visit: Yes Status: Acute Code(s): I48.91 - UNSPECIFIED ATRIAL FIBRILLATION SNOMED Code(s): 372622007078948 Comment: - S/P cardioversion with Dr. Odell - Now in Sinus Rhythm - Tikosyn stopped per cardiology - Patient seen by Dr. Chen today- plan to stop eliquis and start heparin drip tonight. plan for heart cath tomorrow - patient is agreeable (2) Elevated troponin Current Visit: Yes Status: Acute Code(s): R74.8 - ABNORMAL LEVELS OF OTHER SERUM ENZYMES SNOMED Code(s): 376684765 Comment: - Denies chest pain at this time - Cardiac cath 2014 - Suspect secondary to demand ischemia in the setting of Afib with RVR - Continue carvedilol (3) Nonischemic cardiomyopathy Current Visit: Yes Status: Acute Code(s): I42.8 - OTHER CARDIOMYOPATHIES SNOMED Code(s): 90886645 Comment: - No signs of CHF exacerbation at this time - Daily weights and strict I+O's (4) CKD (chronic kidney disease), stage III Current Visit: No Status: Acute Code(s): N18.3 - CHRONIC KIDNEY DISEASE, STAGE 3 (MODERATE) SNOMED Code(s): 008067468 Comment: - At baseline (5) DVT prophylaxis Current Visit: No Status: Inactive Onset Date: 12/08/14 Code(s): JGH6228 - SNOMED Code(s): 076359206 Comment: - heparin drip (6) Full code status Current Visit: Yes Status: Acute Code(s): Z78.9 - OTHER SPECIFIED HEALTH STATUS SNOMED Code(s): 032351717 Status and Disposition: OBV to INP. heart cath tomorrow
[2018-10-09] MEDS ORDERED: Heparin DRIP 25,000 UNITS(*) 25,000 UNITS/500 ML BAG IV SCH (21:00)
[2018-10-09] MEDS: Atorvastatin* 40 MG TAB PO SCH (22:04)
[2018-10-10 03:55] LABS: ABS Basophils 0 10^3/ul (0-0.2); ABS Eosinophils 0.3 10^3/ul (0-0.6); ABS Lymphocytes 1.8 10^3/ul (1.0-4.8); ABS Monocytes 0.5 10^3/ul (0-0.8); ABS Neutrophils 3.4 10^3/ul (1.5-7.7); ABS Nucleated RBC 0 10^3/ul; Eosinophil % 4.7 %; Hematocrit 40 % (42-52); Hemoglobin 13.6 g/dl (14.0-18.0); Lymphocyte % 30.4 %; Mean Corpuscular HGB Conc 34 g/dl (31-36); Mean Corpuscular Hemoglobin 32 pg (27-31); Mean Corpuscular Volume 94 fL (80-94); Mean Platelet Volume 9.5 fL (7.4-10.4); Nucleated Red Blood Cells % 0; Platelet Count 186 10^3/ul (150-450); Red Blood Count 4.25 10^6/ul (4.00-5.40); Red Cell Distribution Width 13 % (10.5-15); White Blood Count 6.1 10^3/ul (3.5-10.8)
[2018-10-10 04:09] LABS: BUN/Creatinine Ratio 19.6 (8-20); Calcium 8.4 mg/dL (8.6-10.3); EGFR African American 79.4 (>60); EGFR Non-African American 65.6 (>60); Magnesium 2.1 mg/dL (1.9-2.7)
[2018-10-10] MEDS ORDERED: NS 0.9% 1000 ML** 1,000 ML IV SCH ×2 (06:00→11:30)
[2018-10-10] MEDS: Aspirin 81 mg CHEW TAB* 81 MG TAB.CHEW PO SCH (08:14)
[2018-10-10] MEDS: Carvedilol TAB* 3.125 MG PO SCH (08:14)
[2018-10-10] MEDS ORDERED: fentaNYL* 50 MCG/ML 2 ML VIAL (100 MCG VIAL) ONE (09:49)
[2018-10-10] MEDS ORDERED: Heparin(*) 1000 UNIT/ML 10 ML VIAL CATH LAB IV ONE (09:49)
[2018-10-10] MEDS ORDERED: Midazolam* 1 MG/ML 5 ML VIAL (5 MG) ONE (09:49)
[2018-10-10] MEDS ORDERED: VERAPAMIL 2.5 MG/ML 2 ML VIAL ** 5 mg/2 ml ONE (09:49)
[2018-10-10] MEDS ORDERED: Lidocaine 1% INJ* 10 MG/ML 30 ML SDV ONE (09:50)
[2018-10-10] MEDS ORDERED: Iohexol 350 (CONTRAST) 200 ML MDV IV ONE (09:50)
[2018-10-10] MEDS ORDERED: Heparin 2 UNITS/ML IVPREMIX* 3,000 UNIT/1,500 ML BAG IV ONE (09:50)
[2018-10-10] MEDS ORDERED: nitroGLYCERIN DRIP* 25,000 MCG/250 ML BTL ONE (09:50)
[2018-10-10] MEDS ORDERED: diPHENhydraMINE IV* 50 MG/ML 1 ml VIAL (BENADRYL) ONE (10:01)
--- NOTE | 2018-10-10 13:14 | CATH ---
CC: Dr. Strong; Dr. Shankar Arvizu; Dr. Karina Fung CATH REPORT: DATE OF PROCEDURE: 10/10/18 PRIMARY CARE PHYSICIAN: Dr. Strong. ELECTRICAL EXPERIMENTAL MECHANIC: Dr. Shankar Arvizu. PROCEDURES: Right radial artery access, bilateral selective coronary cineangiography, left heart cat heterization. HISTORY: A 67-year-old male with nonischemic cardiomyopathy, cath in 2014 revealed a 40% ramus steno sis. He now presented with atrial flutter with a troponin rise to 5, and nonsustained VT. He was re ferred for catheterization to rule out an ischemic substrate with progression of the ramus. PROCEDURE ACCESS: Right radial artery sheath 6F slender. MEDICATIONS: 1. Subcu lidocaine. 2. IV Versed. 3. IV fentanyl. 4. Heparin 3000 units. 5. Verapamil 3 mg. 6. Nitroglycerin 300 mcg IA. 7. Additional nitroglycerin 100 mcg were given IC to rule out ramus branch spasm. HEMODYNAMICS: Initial AO 108/75, LV 110/14-19. ANGIOGRAPHY: Left main: The left main is without stenosis. LAD: The LAD is large to moderate, extends past the apex, supplies a number of small diagonal branch es, has scattered plaquing without any significant stenosis. Circumflex: The circumflex is large, codominant, with a moderate ramus branch, which has a small pro ximal side branch, which has a 60% proximal stenosis, is too small for intervention. It then provide s a second side branch approximately 2 mm in diameter which has minimal plaquing at its origin, the l ower ramus branch has a 90% stenosis with progression, this lower branch supplies a fair amount of th e lateral wall. More distally, the circumflex supplies a small posterolateral and a small circumflex PDA. Distal cir cumflex has no significant stenosis. RCA: The RCA is small, codominant with a very small PDA. It has minimal proximal irregularity, no s ignificant stenosis. CONCLUSION: 1. Single-vessel disease ramus with progression from 2014. He will be referred for stenting to a ce nter with cardiac surgery given his low ejection fraction of less than 20%. He will also need EP mallory luation for an AICD. 2. Successful right radial artery access. 3. Elevated LVEDP, otherwise normal left-sided hemodynamics. [id number]/[facility] #: [id number]
--- NOTE | 2018-10-10 18:05 | PN ---
Subjective Date of Service: 10/10/18 Interval History: NO complaints resting in bed , no acute distress. Denies chest pain or shortness of breath. Denies abd pain n/v/d. Heart cath today showed 90 % lesion in the ramas - will need to be transferred to [facility] in the AM for Cath and stenting , DR. Mcginnis has accepted Family History: Unchanged from Admission Social History: Unchanged from Admission Past Medical History: Unchanged from Admission Objective Active Medications: Acetaminophen (Tylenol Tab*) 650 mg PO Q6H PRN PRN Reason: PAIN Aspirin (Aspirin 81 Mg Chew Tab*) 81 mg PO DAILY [facility] Last Admin: 10/10/18 08:14 Dose: 81 mg Atorvastatin Calcium (Lipitor*) 40 mg PO 2100 [facility] Last Admin: 10/09/18 22:04 Dose: 40 mg Carvedilol (Coreg Tab*) 3.125 mg PO BID [facility] Last Admin: 10/10/18 08:14 Dose: 3.125 mg Diphenhydramine HCl (Benadryl Po*) 25 mg PO BEDTIME PRN PRN Reason: INSOMNIA Last Admin: 10/06/18 22:57 Dose: 25 mg Enoxaparin Sodium (Lovenox(*)) 100 mg SUBCUT Q12H [facility] Vital Signs - 8 hr 10/10/18 10/10/18 10/10/18 10:05 11:13 11:14 Temperature Pulse Rate 79 77 Respiratory 16 17 20 Rate Blood Pressure 113/75 (mmHg) O2 Sat by Pulse 97 96 Oximetry 10/10/18 10/10/18 10/10/18 11:29 11:30 11:44 Temperature Pulse Rate 73 70 70 Respiratory 19 29 Rate Blood Pressure 117/67 112/67 (mmHg) O2 Sat by Pulse 95 95 Oximetry 10/10/18 10/10/18 10/10/18 11:45 11:51 11:59 Temperature Pulse Rate 70 68 Respiratory 22 20 Rate Blood Pressure 103/66 (mmHg) O2 Sat by Pulse 95 Oximetry 10/10/18 10/10/18 10/10/18 12:00 12:15 12:29 Temperature 98.2 F Pulse Rate 74 73 70 Respiratory 23 28 21 Rate Blood Pressure 109/76 116/69 (mmHg) O2 Sat by Pulse 95 97 98 Oximetry 03/08/19 03/08/19 03/08/19 12:45 12:59 13:00 Temperature Pulse Rate 71 68 68 Respiratory 24 23 Rate Blood Pressure 113/74 (mmHg) O2 Sat by Pulse 95 97 Oximetry 10/10/18 10/10/18 10/10/18 13:14 13:15 13:40 Temperature 97.7 F Pulse Rate 66 80 77 Respiratory 20 20 Rate Blood Pressure 105/63 112/75 (mmHg) O2 Sat by Pulse 96 98 Oximetry 10/10/18 10/10/18 10/10/18 14:43 15:14 16:11 Temperature 96.4 F 97.7 F 97.0 F Pulse Rate 56 81 81 Respiratory 16 16 20 Rate Blood Pressure 125/77 119/69 115/64 (mmHg) O2 Sat by Pulse 96 96 97 Oximetry Oxygen Devices in Use Now: None Appearance: Alert oreinted x 3 , no acute distress Eyes: No Scleral Icterus Ears/Nose/Mouth/Throat: Clear Oropharnyx, Mucous Membranes Moist Neck: NL Appearance and Movements; NL JVP, Trachea Midline Respiratory: Symmetrical Chest Expansion and Respiratory Effort, Clear to Auscultation Cardiovascular: NL Sounds; No Murmurs; No JVD, No Edema Abdominal: NL Sounds; No Tenderness; No Distention Extremities: No Edema, No Clubbing, Cyanosis Skin: No Rash or Ulcers Neurological: Alert and Oriented x 3 Nutrition: Taking PO's Result Diagrams: 10/10/18 03:47 10/10/18 03:47 Assess/Plan/Problems-Billing Assessment: Mr. 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 - Patient Problems (1) Atrial fibrillation with RVR Current Visit: Yes Status: Acute Code(s): I48.91 - UNSPECIFIED ATRIAL FIBRILLATION SNOMED Code(s): 456432179759221 Comment: - S/P cardioversion with Dr. Odell - Now in Sinus Rhythm - Tikosyn stopped - heart cath today - 90% lesion in the ramas - EF 20% - will be transferred to Dr. Mcginnis in the AM at [facility] - Will restart Lovenox 1mg/kg Q 12 hours (2) Elevated troponin Current Visit: Yes Status: Acute Code(s): R74.8 - ABNORMAL LEVELS OF OTHER SERUM ENZYMES SNOMED Code(s): 246777735 Comment: - Denies chest pain at this time - Cardiac cath progression of the lesion in the ramas 90% - EF 20 - Suspect secondary to demand ischemia in the setting of Afib with RVR - Continue carvedilol (3) Nonischemic cardiomyopathy Current Visit: Yes Status: Acute Code(s): I42.8 - OTHER CARDIOMYOPATHIES SNOMED Code(s): 59765408 Comment: - No signs of CHF exacerbation at this time - Daily weights and strict I+O's (4) CKD (chronic kidney disease), stage III Current Visit: No Status: Acute Code(s): N18.3 - CHRONIC KIDNEY DISEASE, STAGE 3 (MODERATE) SNOMED Code(s): 525987696 Comment: - At baseline (5) DVT prophylaxis Current Visit: No Status: Inactive Onset Date: 12/08/14 Code(s): KXQ1359 - SNOMED Code(s): 612131417 Comment: - lovenox (6) Full code status Current Visit: Yes Status: Acute Code(s): Z78.9 - OTHER SPECIFIED HEALTH STATUS SNOMED Code(s): 737194406 Status and Disposition: transfer to [facility] in the AM
[2018-10-10] MEDS: Enoxaparin(*) 100 MG/ML SYR SUBCUT SCH (18:06)
[2018-10-10] MEDS ORDERED: Clopidogrel TAB* 300 MG PO ONE (18:30)
[2018-10-10] MEDS: Atorvastatin* 40 MG TAB PO SCH (20:24)
[2018-10-10] MEDS ORDERED: Carvedilol TAB* 6.25 MG PO SCH (21:00)
--- NOTE | 2018-10-11 00:58 | TRS ---
CC: Dr. Odell; Dr. Fung; Dr. Strong * TRANSFER SUMMARY: DATE OF ADMISSION: 10/06/18 DATE OF TRANSFER: 10/11/18 PROVIDER: Suzanne Amaro NP ATTENDING PHYSICIAN: Dr. Irma Arce * (dictated by Suzanne Amaro NP) PRIMARY CARE PROVIDER: Dr. Jose A Strong PRIMARY DIAGNOSES: 1. [id number] myocardial infarction. 2. Progression of ramus lesion now at 90%. 3. Elevated troponin. 4. Atrial fibrillation with cardioversion. SECONDARY DIAGNOSES: 1. Viral nonischemic cardiomyopathy. 2. Chronic systolic congestive heart failure. 3. Chronic kidney disease stage 3. STUDIES COMPLETED WHILE IN THE HOSPITAL: He had a transesophageal echocardiogram on 10/07/18, estimated ejection fraction was 20% to 25%. There was diffuse global hypokinesis of the left ventricle, severely decreased left ventricular systolic function. Estimated ejection fraction again was 20% to 25% . There was no thrombus visualized in the atrial appendage. A patent foramen ovale was not demonstrated. There was trace to mild aortic regurgitation. There was moderate mitral regurgitation. There was moderate tricuspid regurgitation. There was evidence of mild to moderate pulmonary hypertension. The right ventricular systolic pressure was estimated at 54. There was no significant pericardial effusion. He had cardiac catheterization. Conclusion: LAD: LAD is large to moderate, extends past the apex, supplies a number of small diagonal branches, has scattered plaquing without any significant stenosis. Circumflex: The circumflex is large, codominant, with a moderate ramus branch, which has a small proximal side branch, which has a 60% proximal stenosis, too small for intervention. It then provides a second side branch approximately 2 mm in diameter which has a marginal plaquing at its origin, the lower ramus branch has a 90% stenosis with progression. The lower branch supplies a fair amount of the lateral wall. More distally, the circumflex supplies a small posterolateral and a small circumflex PDA. Distal circumflex has no significant stenosis. RCA: The RCA is small, codominant with a very small PDA. It has minimal proximal irregularity, no significant stenosis. CONCLUSION: 1. Small single-vessel disease ramus with progression from 2015. He will be referred for stenting at a center with a cardiac surgery given his low ejection fraction of less than 20%. He will also need EP evaluation for an AICD. 2. Elevated LVEDP, otherwise normal left-sided hemodynamics. TRANSFER MEDICATIONS: 1. Acetaminophen 650 mg p.o. q.6 hours as needed. 2. Aspirin 81 mg p.o. daily. 3. Atorvastatin 40 mg p.o. daily. 4. Carvedilol 6.25 mg p.o. b.i.d. 5. Clopidogrel 75 mg p.o. daily. 6. Benadryl 25 p.o. at bedtime. 7. Lovenox 100 mg subcu q.12 hours. HISTORY OF PRESENT ILLNESS AND HOSPITAL COURSE: Mr. Mccracken is a 67-year-old male with a past medical history significant for viral nonischemic cardiomyopathy with an ejection fraction of 20%, who presented to the hospital with concern of chest pain and rapid heart rate. Mr. Mccracken states he was in his normal state of health and as of a few months ago he had had a prolonged illness with bronchitis-type symptoms, but he has recovered from that completely today. He went to see Dr. Arvizu and was described some chest discomfort. EKG revealed atrial fibrillation or atrial flutter and he was immediately sent to the emergency room for evaluation. In the emergency room, Mr. Mccracekn was confirmed to be in atrial flutter with the heart rate in the 160s. He was given multiple rounds of diltiazem and started on diltiazem drip. His heart rate slowed to the 90s. He was seen in consultation by Dr. Odell from Cardiology, who recommended doing cardioversion. The patient subsequently underwent a transesophageal echocardiogram and then cardioversion which he was cardioverted from atrial flutter to sinus rhythm. He was then recommended, he be hospitalized for Tikosyn load. The patient was unable to tolerate the Tikosyn and due to his elevated troponins and persistent nonsustained ventricular tachycardia, it was recommended by Cardiology and Interventional Cardiology, the patient undergo a heart catheterization. The patient underwent a heart catheterization on 10/10/18 which showed a progression of the ramus lesion which has progressed from 40% to now 90%. Due to the patient's low ejection fraction it is recommended that the patient be transferred to a facility where a cardiothoracic surgeon is available as the patient will needed stenting in the ramus. Given that the patient also is having ventricular ectopy, is also recommended that the patient see an scale mechanic as well. Dr. Fung spoke to Dr. Mcginnis at [facility], who has accepted the patient for transfer. The plan is to transfer the patient on 10/11/18 to [facility] for cardiac catheterization and to be seen by an scale mechanic for EP studies. At this time, Mr. Mccracken is stable for transfer to [facility]. Vital Signs: Blood pressure 106/55, heart rate is 67, respirations 16, O2 saturation 98%, temperature is 97.5. TRANSFER PLAN: Mr. Mccracken will be transferred to [facility] under the care of Dr. Mcginnis who has accepted the patient. Transfer is scheduled for the morning of 10/11/18 for further management of his ramus lesion and ventricular ectopy and possible evaluation of AICD placement due to his low ejection fraction of less than 20%. The patient will be transferred by [facility]. CONDITION ON TRANSFER: Stable. DISPOSITION ON TRANSFER: [facility]. I have discussed with my attending Dr. Irma Arce, she is in agreement with my plan. SUZANNE AMARO, [place] [id number]/[facility] #: [id number] JEROMY
[2018-10-11 04:24] VITALS: BP 100/60
[2018-10-11 05:55] LABS: ABS Basophils 0 10^3/ul (0-0.2); ABS Eosinophils 0.3 10^3/ul (0-0.6); ABS Lymphocytes 1.6 10^3/ul (1.0-4.8); ABS Monocytes 0.6 10^3/ul (0-0.8); ABS Neutrophils 3.5 10^3/ul (1.5-7.7); ABS Nucleated RBC 0 10^3/ul; Eosinophil % 4.7 %; Hematocrit 39 % (42-52); Hemoglobin 13.2 g/dl (14.0-18.0); Lymphocyte % 26.6 %; Mean Corpuscular HGB Conc 34 g/dl (31-36); Mean Corpuscular Hemoglobin 32 pg (27-31); Mean Corpuscular Volume 94 fL (80-94); Mean Platelet Volume 9.7 fL (7.4-10.4); Nucleated Red Blood Cells % 0; Platelet Count 187 10^3/ul (150-450); Red Blood Count 4.16 10^6/ul (4.00-5.40); Red Cell Distribution Width 14 % (10.5-15)
[2018-10-11 06:11] LABS: EGFR African American 79.4 (>60); EGFR Non-African American 65.6 (>60)
[2018-10-11] MEDS: Enoxaparin(*) 100 MG/ML SYR SUBCUT SCH (06:25)
[2018-10-11] MEDS ORDERED: Clopidogrel TAB* 75 MG PO SCH (09:00)
== END 2018-10-11 07:20 | disposition short-term general hospital (02) | DRG 281 ==
LOC: ED 16:29 → MEDTELE 19:05 → OBSVTOIN 10-07 12:04
PROVIDERS: ADMIT Nurse Practitioner Acute Care; ATTEND Internal Medicine
PROC: 5A2204Z Restoration of Cardiac Rhythm, Single (ICD-10-PCS; 2018-10-07)
PROC: B24BZZ4 Ultrasonography of Heart with Aorta, Transesophageal (ICD-10-PCS; 2018-10-07)
PROC: 4A023N7 Measurement of Cardiac Sampling and Pressure, Left Heart, Percutaneous Approach (ICD-10-PCS; 2018-10-10)
PROC: B2111ZZ Fluoroscopy of Multiple Coronary Arteries using Low Osmolar Contrast (ICD-10-PCS; principal; 2018-10-10 09:00)
DX: I48.92 Unspecified atrial flutter (principal); I21.4 Non-ST elevation (NSTEMI) myocardial infarction; I13.0 Hypertensive heart and chronic kidney disease with heart failure and stage 1 through stage 4 chronic kidney disease, or unspecified chronic kidney disease; I50.22 Chronic systolic (congestive) heart failure; I47.2 Ventricular tachycardia; I42.8 Other cardiomyopathies; I25.10 Atherosclerotic heart disease of native coronary artery without angina pectoris; N18.3 Chronic kidney disease, stage 3 (moderate); I08.3 Combined rheumatic disorders of mitral, aortic and tricuspid valves; I49.3 Ventricular premature depolarization; E66.8 Other obesity; I27.20 Pulmonary hypertension, unspecified; Z79.82 Long term (current) use of aspirin; Z87.891 Personal history of nicotine dependence; Z88.8 Allergy status to other drugs, medicaments and biological substances; Z83.3 Family history of diabetes mellitus; Z79.01 Long term (current) use of anticoagulants; Z79.02 Long term (current) use of antithrombotics/antiplatelets; Z82.49 Family history of ischemic heart disease and other diseases of the circulatory system; Z68.37 Body mass index [BMI] 37.0-37.9, adult
CPT/HCPCS: 36415; 80048; 80053; 82565; 83605; 83735; 84439; 84443; 84484; 84520; 85025; 85027; 85610; 85730; 92960; 93005; 93312; 93325; 93458; 99156; 99157; 99284; A9270-GY; G0378; J1160; J1200; J1644; J1650; J2250; J2310; J2405; J3010; J3475

== ENCOUNTER 2019-04-09 09:07 | Inpatient (IN) | payer MEDICARE, OTHER ==
--- NOTE | 2019-04-09 09:26 | ED ---
HPI Cardiac - HPI Summary HPI Summary: Patient is a 68 y/o M presenting to ED with with complaints of palpitations that onset 0200 today, 04/09/19. Palpitations are characterized as being "like an engine on high idle". He notes that, "I can feel it in my ears". He additionally notes that he feels "grungy". Patient reports one similar previous episode. He reports that he was evaluated at [facility] and transferred to [facility] for cardiac catheterization and stent placement. He reports that after this, he began to experience episodes of SOB. Patient reports that he will experience left arm pain, BLE weakness, and abdominal pain with his episodes of SOB. He notes that he has not been compliant with his medications for the past couple of weeks, stating that he has only been taking his fluid pill and ASA. Patient states that he has been receiving his medications from various foreign countries and he is concerned that his episodes of SOB may be a result of product deficiencies in these medications. He notes that he is not SOB at present. It Service Delivery Manager is Dr. Arvizu. Patient does not report fever, chills, erythema of eyes, sore throat, chest pain, cough, abdominal pain, N/V, dysuria, hematuria, myalgia, edema, rash and dizziness. On triage, pain is rated 0/10, nothing is noted to aggravate/alleviate Sx. Home medications and allergies are reviewed. In room, pulse 141, o2 98, BP 138/99. Home medications and allergies are reviewed. - History of Current Complaint Chief Complaint: EDDysrhythmPalp Stated Complaint: RAPID HEART RATE PER Time Seen by Provider: 04/09/19 09:20 Hx Obtained From: Patient Onset/Duration: Started Hours Ago, Still Present Timing: Constant, Lasting Hours Current Severity: None Pain Intensity: 0 Pain Scale Used: 0-10 Numeric Character: Other: - palpitations are "like an engine on high idle" Aggravating Factor(s): Nothing Alleviating Factor(s): Nothing Associated Signs and Symptoms: Positive: Palpitations, Other: - does not report erythema of eyes, sore throat, dysuria, hematuria, myalgia, rash. Negative: Chest Pain, Dizziness, Shortness of Breath, Swelling, Fever, Chills, Nausea, Cough, Productive Cough, Nonproductive Cough, Abdominal Pain, Calf Pain/Swelling , Vomiting, Edema - Additional Pertinent History Primary Care Physician: [id number] - Allergy/Home Medications Allergies/Adverse Reactions: Allergies Allergy/AdvReac Type Severity Reaction Status Date / Time ANETTE Inhibitors Allergy Swelling Verified 08/18/18 04:17 Of Face,Lips,& Throat procaine [From Novocain] Allergy Nausea And Verified 08/18/18 03:52 Vomiting Home Medications: Home Medications Apixaban* [Eliquis*] 5 mg PO BID 04/09/19 [History Confirmed 04/09/19] Atorvastatin* [Lipitor*] 80 mg PO BEDTIME 04/09/19 [History Confirmed 04/09/19] Eplerenone [Inspra] 12.5 mg PO DAILY 04/09/19 [History Confirmed 04/09/19] Furosemide 40 mg PO DAILY 04/09/19 [History Confirmed 04/09/19] Losartan Potassium [Cozaar] 50 mg PO DAILY 04/09/19 [History Confirmed 04/09/19] Metoprolol Succinate XL TAB* [Toprol XL TAB*] 25 mg PO DAILY 04/09/19 [History Confirmed 04/09/19] Metoprolol Tartrate TAB* [Lopressor TAB*] 25 mg PO BID 04/09/19 [History Confirmed 04/09/19] Prasugrel (NF) [Effient (NF)] 60 mg PO ONCE 04/09/19 [History Confirmed 04/09/19 ] Spironolactone TAB* [Aldactone TAB*] 25 mg PO DAILY 04/09/19 [History Confirmed 04/09/19] PMH/Surg Hx/FS Hx/Imm Hx Endocrine/Hematology History: Denies: Hx Diabetes Cardiovascular History: Reports: Hx Angina, Hx Congestive Heart Failure, Hx Coronary Artery Disease, Hx Hypertension Denies: Hx Hypercholesterolemia, Hx Myocardial Infarction Respiratory History: Denies: Hx Asthma, Hx Chronic Obstructive Pulmonary Disease (COPD) History: Reports: Hx Chronic Renal Failure - CKD III, Other Problems/ Disorders - nephrosis at 3 yo Musculoskeletal History: Reports: Other Musculoskeletal History - fractured L1- L4, fractured sternum Sensory History: Reports: Hx Contacts or Glasses - reading glasses Denies: Hx Hearing Aid Opthamlomology History: Reports: Hx Contacts or Glasses - reading glasses - Surgical History Surgery Procedure, Year, and Place: [facility] Infectious Disease History: No Infectious Disease History: Denies: History Other Infectious Disease, Traveled Outside the [place] in Last 30 Days - Family History Known Family History: Positive: Diabetes - Social History Alcohol Use: None Hx Substance Use: No Substance Use Type: Reports: None Hx Tobacco Use: Yes Smoking Status (MU): Former Smoker Type: Cigars Have You Smoked in the Last Year: No Review of Systems Negative: Fever, Chills Negative: Erythema Negative: Sore Throat Positive: Palpitations. Negative: Chest Pain Negative: Shortness Of Breath, Cough Negative: Abdominal Pain, Vomiting, Nausea Negative: dysuria, hematuria Negative: Myalgia, Edema Negative: Rash Neurological: Other - negative - dizziness All Other Systems Reviewed And Are Negative: Yes Physical Exam - Summary Physical Exam Summary: Constitutional: Well-developed, Well-nourished, Alert. (-) Distressed Skin: Warm, Dry HENT: Normocephalic; Atraumatic Eyes: Conjunctiva normal Neck: Musculoskeletal ROM normal neck. (-) JVD, (-) Stridor, (-) Tracheal deviation Cardio: Rhythm regular, rate is rapid, Heart sounds normal; Intact distal pulses ; The pedal pulses are 2+ and symmetric. Radial pulses are 2+ and symmetric. (- ) Murmur Pulmonary/Chest wall: Effort normal. (-) Respiratory distress, (-) Wheezes, (-) Rales Abd: Soft, (-) tenderness, (-) Distension, (-) Guarding, (-) Rebound Musculoskeletal: (-) Edema Lymph: (-) Cervical adenopathy Neuro: Alert, Oriented x3 Psych: Mood and affect Normal Triage Information Reviewed: Yes Vital Signs On Initial Exam: Initial Vitals Temp Pulse Resp BP Pulse Ox 96.6 F 150 20 149/84 99 04/09/19 09:16 04/09/19 09:16 04/09/19 09:16 04/09/19 09:16 04/09/19 09:16 Vital Signs Reviewed: Yes Diagnostics - Vital Signs Vital Signs Temp Pulse Resp BP Pulse Ox 04/09/19 09:16 96.6 F 150 20 149/84 99 - Laboratory Result Diagrams: 04/09/19 09:28 04/09/19 09:28 Lab Statement: Any lab studies that have been ordered have been reviewed, and results considered in the medical decision making process. - Radiology CXR Radiology Interpretation Completed By: Radiologist Summary of Radiographic Findings: CXR IMPRESSION: NO ACTIVE CARDIOPULMONARY DISEASE. THIS REPORT WAS REVIEWED BY DR. SHERMAN. - EKG 0910 Cardiac Rate: Tachycardia - rate of 144 BPM EKG Rhythm: Sinus Tachycardia Summary of EKG Findings: EKG showed sinus tachycardia with rate of 144 BPM, no acute changes, no STEMI. This EKG was reviewed and interpreted by Dr. Sherman. Disposition - Course Course Of Treatment: Patient is a 68 y/o M presenting to ED with with complaints of palpitations that onset 0200 today, 04/09/19. Palpitations are characterized as being "like an engine on high idle". He notes that, "I can feel it in my ears". He additionally notes that he feels "grungy". Patient reports one similar previous episode. He reports that he was evaluated at [facility] and transferred to [facility] for cardiac catheterization and stent placement. He reports that after this, he began to experience episodes of SOB. Patient reports that he will experience left arm pain, BLE weakness, and abdominal pain with his episodes of SOB. He notes that he has not been compliant with his medications for the past couple of weeks, stating that he has only been taking his fluid pill and ASA. Patient states that he has been receiving his medications from various foreign countries and he is concerned that his episodes of SOB may be a result of product deficiencies in these medications. He notes that he is not SOB at present. Patient has a rapid rate on physical exam. EKG showed sinus tachycardia with rate of 144 BPM, no acute changes, no STEMI. CXR IMPRESSION: NO ACTIVE CARDIOPULMONARY DISEASE. Bloodwork was obtained. Abnormal values include trop of 0.24, BNP 532, MCH 33, creatinine 1.37, glucose 141. TSH was 4.04, free T4 was 1.03, INR 1.02. During ED course, patient received diltiazem 20 mg IV SLOW PU and diltiazem drip, 125 mls @ 5 mls/ hr IV. 1055 - Patient's case was discussed with Dr. Arce, Dr. Arce accepts for admission. 1059 - Patient's case was discussed with Dr. Latham, Dr. Latham will consult on the patient. - Diagnoses Provider Diagnoses: Atrial fibrillation with RVR - Physician Notifications Discussed Care Of Patient With: Nara Arce Time Discussed With Above Provider: 10:55 Instructed by Provider To: Other - 1055 - Patient's case was discussed with Dr. Arce, Dr. Arce accepts for admission. 1059 - Patient's case was discussed with Dr. Latham, Dr. Latham will consult on the patient. Discharge ED - Sign-Out/Discharge Documenting (check all that apply): Patient Departure - admit Patient Received Moderate/Deep Sedation with Procedure: No - Discharge Plan Condition: Fair Disposition: ADMITTED TO [facility] Referrals: Nigel Strong MD [Primary Care Provider] - - Attestation Statements Document Initiated by Scribe: Yes Documenting Scribe: NIGEL LAGUERRE Provider For Whom Scribe is Documenting (Include Credential): BRITTANI SHERMAN MD Scribe Attestation: I, NIGEL LAGUERRE, scribed for BRITTANI SHERMAN MD on 04/09/19 at 1325. Status of Scribe Document: Ready
[2019-04-09 09:37] LABS: ABS Basophils 0.1 10^3/ul (0-0.2); ABS Eosinophils 0.2 10^3/ul (0-0.6); ABS Monocytes 0.7 10^3/ul (0-0.8); Eosinophil % 2.1 %; Hematocrit 46 % (42-52); Hemoglobin 16.1 g/dL (14.0-18.0); Mean Corpuscular HGB Conc 35 g/dL (31-36); Mean Corpuscular Hemoglobin 33 pg (27-31); Mean Corpuscular Volume 94 fL (80-94); Mean Platelet Volume 10.3 fL (7.4-10.4); Platelet Count 177 10^3/uL (150-450); Red Blood Count 4.93 10^6 /uL (4.18-5.48); Red Cell Distribution Width 14 % (10-15); White Blood Count 7.9 10^3/uL (3.5-10.8)
[2019-04-09] MEDS ORDERED: Diltiazem IV push/loading dose 5 MG/ML 5 ML vial (25 mg) IV SLOW PU ONE (09:39)
[2019-04-09] MEDS ORDERED: Diltiazem IV VIAL* 125 MG in NS 0.9% 100 ML* 100 ML IV ONE (09:39)
[2019-04-09 09:45] LABS: INR 1.02 (0.82-1.09)
[2019-04-09 09:54] LABS: ALT 24 U/L (7-52); AST 37 U/L (13-39); Albumin 3.7 g/dL (3.2-5.2); Albumin/Globulin Ratio 1.2 (1-3); Alkaline Phosphatase 54 U/L (34-104); Anion Gap 8 mmol/L (2-11); BUN/Creatinine Ratio 14.6 (8-20); Blood Urea Nitrogen 20 mg/dL (6-24); CO2 Carbon Dioxide 24 mmol/L (22-32); Calcium 8.9 mg/dL (8.6-10.3); Chloride 107 mmol/L (101-111); EGFR African American 62.7 (>60); EGFR Non-African American 51.8 (>60); Globulin 3.2 g/dL (2-4); Glucose 141 mg/dL (70-100); Potassium 3.7 mmol/L (3.5-5.0); Sodium 139 mmol/L (135-145); Total Protein 6.9 g/dL (6.4-8.9)
[2019-04-09 09:58] LABS: Troponin I 0.24 ng/mL (<0.04)
[2019-04-09 10:56] LABS: TSH (Thyroid Stimulating Horm) 4.04 mcIU/mL (0.34-5.60)
[2019-04-09 10:58] LABS: Free T4 1.03 ng/dL (0.61-1.12)
[2019-04-09] MEDS ORDERED: Magnesium Hydroxide LIQ* 30 ML UDC PO PRN (11:46)
[2019-04-09] MEDS ORDERED: Acetaminophen TAB* 325 MG PO PRN (11:46)
[2019-04-09] MEDS ORDERED: Potassium Chlor TAB* 20 MEQ TAB.ER PO ONE (12:30)
--- NOTE | 2019-04-09 14:28 | HP ---
CC: Dr. Strong; Dr. Nara Du; Dr. Latham from Cardiology; Dr. Arvizu of [facility]* ADMISSION HISTORY AND PHYSICAL: DATE OF ADMISSION: 04/09/19 PRIMARY CARE PROVIDER: Dr. Strong. ATTENDING PHYSICIAN: Dr. Nara Du* (dictated by Gildardo Copeland NP ). CHIEF COMPLAINT: Palpitations and shortness of breath. HISTORY OF PRESENT ILLNESS: Mr. Mccracken is a 68-year-old male patient with a known history of viral cardiomyopathy and coronary artery disease that presented to the emergency department today with a complaint of palpitations and shortness of breath. Per the patient's reported history, he stopped taking his cardiac meds approximately 2 weeks ago. The patient states after his last admission which was in October of this year, he was doing his usual followups with his mounted police officer and his primary care provider, Dr. Strong; however, he felt that some of the medications he was taking were causing him stomach upset and increased shortness of breath. It should be noted that the patient was transferred on 10/11/18 to [facility] for high-risk cardiac catheterization with surgical backup. The patient was noted to have severe cardiomyopathy with an ejection fraction of approximately 20%. At that time, he did undergo cardiac catheterization with Dr. Karina Fung. At that time, he was noted to have a lesion in the ramus branch that had progressed to 90%. Given his low ejection fraction, he was again noted to be high risk and required surgical backup for his intervention. The patient at that time was transferred to [facility] under the care of Dr. Mcginnis, who accepted the patient for transfer. He did undergo cardiac catheterization at that time and EP studies, it is unclear what his surgical followup needed to be after his intervention. The patient does endorse that he has compliance issues with his medications as he stopped his Brilinta several weeks ago, he did call his provider to let him know that he stopped his Brilinta. He was then started on Effient instead of Brilinta; however, 2 weeks ago, he stopped all of his medications and now presents to the emergency department in atrial fibrillation with rapid ventricular response. The emergency department staff contacted Cardiology. He has been seen by Dr. Jared Latham in the ED. He was placed on Cardizem drip for rate control. Initially, his rate was in the 130s to 140s, rate is still in the 115 range to 120. Blood pressure is stable. His Cardizem drip has been titrated up to 15 mg per hour. Plan at this time is to admit the patient to telemetry and the patient will undergo JOSE cardioversion in the morning. Hospitalists have been requested to admit the patient to telemetry. PAST MEDICAL HISTORY: As stated above is viral nonischemic cardiomyopathy, chronic systolic and diastolic congestive heart failure, chronic kidney disease stage 3, coronary artery disease status post stenting. PAST SURGICAL HISTORY: Cholecystectomy and cardiac catheterization x2 with stents. HOME MEDICATIONS: Are as follows: 1. Lasix 40 mg 1 tablet daily. 2. Losartan 50 mg 1 tablet daily. 3. Atorvastatin 80 mg in the evening daily. 4. Eliquis 5 mg 2 times daily. 5. Spironolactone 25 mg 1 tablet daily. 6. Effient 10 mg daily. 7. Metoprolol tartrate 25 mg b.i.d. 8. Eplerenone 25 mg half tablet daily. 9. Aspirin 81 mg daily. ALLERGIES: The patient has allergies to ANETTE INHIBITORS and PROCAINE. FAMILY HISTORY: Significant for cancer on both sides. SOCIAL HISTORY: He is a former tobacco user, quit many years ago. Negative for EtOH or drug abuse. Healthcare proxy is his , who is at the bedside. REVIEW OF SYSTEMS: The patient denies any fever, fatigue, or chills. He does endorse intermittent shortness of breath with exertional dyspnea. He endorses palpitations which he states he can hear and feel in his ears and accompanying chest pressure which is somewhat relieved now since being on the Cardizem drip. He denies any abdominal pains or nausea or vomiting. He does state he has had weight gain over the past 2 weeks. He denies any urinary complaints, denies any arthralgias or myalgias, denies any edema, and no further constitutional complaints. PHYSICAL EXAMINATION GENERAL: The patient is alert, mildly anxious, otherwise well appearing. VITAL SIGNS: Blood pressure 122/70, heart rate variable of 107 to 130, respiratory rate 18, O2 saturation 96% on room air with a temperature of 96.6. HEENT: The patient is atraumatic, normocephalic. PERRLA. Nonicteric sclerae. Oral mucosa is moist. Tongue is midline. NECK: Supple, nontender. No JVD noted. No carotid bruit auscultated. No thyromegaly appreciated. LUNGS: Clear bilaterally with no wheezing, rhonchi, or rales noted. CARDIOVASCULAR: S1, S2 present. Rate is tachycardic. Rhythm is irregular. S1 , S2 present. No murmurs, gallops, or rubs noted. ABDOMEN: Large, protuberant. Positive bowel sounds in all 4 quadrants. No hepatosplenomegaly noted. : Deferred. MUSCULOSKELETAL: There is no clubbing, no cyanosis, no pedal edema. He has +2 distal pulses palpable. Full range of motion. Gross motor and sensation are intact. NEUROLOGIC: Grossly intact. Alert and oriented x3 with no focal deficits. PSYCHIATRIC: He is appropriate and denies any depression or anxiety. DIAGNOSTIC STUDIES/LAB DATA: WBCs 7.9, RBCs 4.93, hemoglobin 16.1, hematocrit 46, platelets 177. Sodium 139, potassium 3.7, chloride 107, BUN 20, creatinine 1.37, GFR 51.8, glucose 141, calcium 8.9, magnesium 2.0. Total bilirubin 1.00, alk phos 54. Troponin is 0.24, BNP 532. Total protein 6.9, albumin 3.7, globulin 3.2. TSH 4.04, free T4 is 1.03. INR is 1.02. Chest x-ray dated 04/09/19 shows no active cardiopulmonary disease. EKG at 9: 07 this morning shows atrial fibrillation versus flutter with a rate of 144. No further imaging or studies available. IMPRESSION: Mr. Mccracken is a 68-year-old male with a complex cardiac history, who presents to the emergency department today with complaint of palpitations, found to be in atrial fibrillation with rapid ventricular response. PLAN: The patient will be admitted to telemetry service. DIAGNOSES: 1. Atrial fibrillation with rapid ventricular response. The patient has been off his medication for several weeks now. He has been counseled extensively on staying compliant with his medication regimen; however, he has been seen by Dr. Latham already. Plan will be n.p.o. after midnight for JOSE cardioversion in the morning. For now, the patient can have a heart-healthy diet with decaf okay and then n.p.o. after midnight. In terms of his cardiac medications, Dr. Latham has requested that the patient be started back on his metoprolol, Eliquis, and Effient. We will be holding his Cozaar, Lipitor, and eplerenone. We will continue his aspirin and his Lasix. He does not appear to be volume overloaded. We will continue to titrate his Cardizem drip. Currently, the drip is going at 15. His rate does seem to be coming down and we will await cardioversion in the morning. 2. Increased troponin. His troponin was elevated at his last admission while he was in atrial fibrillation with rapid ventricular response. Could be demand ischemia. The patient does complain of some chest pressure with the increased rate. We will continue to trend his troponins and look to Cardiology for any additional recommendations, but at this time, it does not appear that the patient is having an acute coronary syndrome. 3. History of viral nonischemic cardiomyopathy. We will follow his echocardiogram tomorrow and identify if his ejection fraction has recovered from last October. 4. History of coronary artery disease status post stenting at [facility] in October. The patient was on Brilinta for short time and then stopped it. His Effient has been restarted. We will continue the patient on telemetry. We will optimize the patient. His potassium is slightly lower than 4, just 3.7 today. He will receive potassium supplementation. Goal potassium is greater than 4 and magnesium greater than 2. 5. History of chronic kidney disease. His kidney function is around his baseline, just slightly above. We will continue to monitor his daily labs. 6. For DVT prophylaxis. The patient has been placed back on his Eliquis. 7. Code status: He is a full code. The rest of the patient's course will be determined by further diagnostics, laboratories, and any other input from other providers as warranted during this admission. TIME SPENT: 70 minutes on admission planning, greater than 50% of the time was spent [id number] with the patient and his discussing the admission plan of care and direct patient evaluation. This plan of care has been discussed with Dr. Nara Du, the attending on this case. GILDARDO COPELAND, [place] [id number]/[facility] #: [id number] JEROMY
[2019-04-09 16:19] LABS: Troponin I 0.54 ng/mL (<0.04)
--- NOTE | 2019-04-09 16:58 | CONS ---
CARDIOLOGY CONSULTATION: DATE OF CONSULT: 04/09/19 REFERRAL PHYSICIAN: Dr. Shiva Sherman and Dr. Nara Du. REASON FOR CONSULT: Rapid atrial flutter recurrence. HISTORY OF PRESENT ILLNESS: The patient is a 68-year-old gentleman with a history of non Q-wave KS with coronary artery disease, status post ramus PCI in October 2018 (at [facility], those records are currently not available to me) as well as AFib requiring transesophageal echocardiogram- guided cardioversion, also in October 2018. The patient has been noticing abdominal discomfort since his PCI procedure was done and has attributed that to his medications. He had been prescribed to take aspirin, Effient (he was intolerant to Brilinta), Eliquis, Toprol XL, Cozaar, eplerenone, and Lipitor as well as Lasix. The patient on his own about a week or two ago, stopped all of his medications except aspirin and Lasix. He notes that his abdominal pain did improve, however, he began to feel short of breath for the last few days and earlier this morning at 2 a.m. noted palpitations. His placed her Fitbit on him and found that his pulse was in the 150s. The patient does not offer angina as a discomfort. PAST MEDICAL HISTORY: The patient had a non Q-wave KS, 10/06/18 with rapid atrial fibrillation requiring transesophageal echocardiogram cardioversion. He was seen by Dr. Odell of [facility] at that time. Transesophageal echocardiogram on 12/21 showed an ejection fraction of 20% to 25% with moderate mitral regurgitation, moderate tricuspid regurgitation, mild-to- moderate pulmonary hypotension. He then had a cardiac catheterization, which showed LAD with plaquing, left circumflex with a small proximal side branch 60% stenosis as well as ramus branch with a 90% lesion, RCA is small codominant with plaquing only. Given his severe LV dysfunction, he was then transferred to [facility] for the PCI. Further details of that procedure are unknown. Recent voluntary discontinuation of medications as above. Other past medical history includes hypertension, viral cardiomyopathy in 2015 in the setting of viral pneumonia, chronic kidney disease stage 3. OUTPATIENT MEDICATIONS: As above, he is taking aspirin and Lasix 40 mg once a day. He has stopped his Toprol XL 25 mg once a day, Eliquis 5 mg p.o. b.i.d., Effient 10 mg once a day, Cozaar, eplerenone and Lipitor. ALLERGIES: Allergies to medications are per the patient NOVOCAINE and NITRATES , which causes him to be severely sick to his stomach. Per record review it states that he is allergic to ANETTE INHIBITORS, PROCAINE and TIKOSYN due to TIKOSYN causing ventricular tachycardia when it was trialed prior. FAMILY HISTORY: Significant for cardiac disease in his father as well as diabetes. There is family history of cancer in his mother. No family history of stroke. SOCIAL HISTORY: He does not smoke cigarettes, abuse alcohol, no illicit drugs. He does drink coke, 1 marlene-cola per day. He has been doing it for 49 years. He does not use Sudafed. 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 He is not currently working after a back injury. He does try to do exercise with walking 20 minutes per day and he takes care 4 dogs. REVIEW OF SYSTEMS: He denies personal history of stroke, cancer, vomiting of blood, coughing up blood, bright red blood per rectum, bleeding stomach ulcers, renal calculi. He has a history of cholecystectomy. He denies asthma, emphysema. He has had pneumonia requiring hospitalization. He denies tuberculosis, sleep apnea, home oxygen use, diabetes. He has a history of hypertension. He denies prior KS. He denies bypass surgery. He did have PCI, unclear if drug eluting or not, in October 2018 presumably to the ramus vessel. He does feel palpitations currently. He denies diabetes. He denies psychiatric illnesses. He denies murmur. He denies lupus, psoriasis, seizures, Parkinson's disease, myasthenia gravis, denies thyroid disease, liver disease. He does have chronic kidney disease. He denies claudication symptoms, pulmonary emboli , deep venous thrombosis, peripheral arterial disease, peripheral edema or GERD symptoms. All the review of systems are negative except as per this EHR x14.. PHYSICAL EXAM: Height 5 foot 8 inches, weight 243 pounds, pulses ranging from 119 to 130, blood pressure 124/98, O2 saturation 98%, temperature 96.6 degrees Fahrenheit. On general exam, he is a pleasant gentleman in mild distress, which appears due to anxiety. He is able to lie fairly flat. HEENT: Shows the cranium is normocephalic and atraumatic. He has dry mucosal membranes. Neck veins are not distended. There are no carotid bruits. Visible skin warm and perfused. Affect appropriate, appears oriented. No significant kyphoscoliosis on back exam. Lungs are clear to auscultation. No wheezes. No rales. Cardiac Exam: S1, S2. Irregular rate, tachycardic. Soft holosystolic murmur heard without radiation. There is no rub, no gallop. PMI is nondisplaced. Abdomen is soft, nondistended, and appears benign. Extremities without significant edema. Pulses appear grossly intact. DIAGNOSTIC STUDIES/LAB DATA: Sodium 139, potassium 3.7, chloride 107, bicarbonate 24, BUN 20, creatinine 1.37, magnesium 2.0, troponin 0.24, BNP 532, TSH 4.04, INR 1.02. White blood cell count 7.9, hematocrit 46, platelet count 177. A 12-lead EKG completed 04/09/19 at 09:07 a.m. demonstrates atrial flutter with rapid ventricular response and a nonspecific IVCD. IMPRESSION: Mr. Mccracken is a 68-year-old gentleman with history of coronary artery disease, status post presumably ramus PCI in October 2018 requiring transesophageal echocardiogram guided cardioversion for rapid atrial fibrillation at that time as well, who recently stopped many of his medications expect for aspirin and Lasix a week or two ago because of stomach pain. While his stomach pain has improved, not surprisingly, he is back in rapid atrial flutter. We do see that his troponin is minimally elevated at 0.24, but that may be due to demand mediation from his rapid heart rate, especially off the beta-ace. There is no clear evidence of ST elevation at this time. It is unclear when his atrial flutter exactly started, although it sounds like he did have palpitations at 2 in the morning, but he has been having shortness of breath for several days at least. RECOMMENDATIONS: 1. We will plan to obtain 10/21 [facility] cardiac catheterization records and see whether or not the patient had drug-eluting stent. If he has had a BREANNA , then at minimum 6 months of dual antiplatelet therapy is required and if he so wishes then could stop the prasugrel, however, optimal duration of therapy of DAPT for BREANNA would be 1 year acknowledging his need for a NOAC. 2. The patient is now willing to restart Toprol XL, Effient and Eliquis in addition, to continuing his aspirin and Lasix. We would watch for recurrence of abdominal pain and for now, we can hold on the ARB, eplerenone and statin and we will be reevaluating his LVEF at his transesophageal echocardiogram, which was known to be severely depressed. 3. Continue Cardizem drip and restart the beta-ace as well as Eliquis. If his atrial flutter persists, plan transesophageal echocardiogram-guided cardioversion in the morning. I reviewed the procedure of transesophageal echocardiogram-guided cardioversion with the patient in detail and his . I then performed a risk-benefit alternative analysis with benefits being more definitive resumption of normal sinus rhythm, alternatives being continued attempts at heart rate control, which appears suboptimal at this time and which the patient does not wish to pursue at least as the next step. We then reviewed the risks of the procedure and the patient is aware that this is not an all inclusive list of risks as I cannot list all possible risks for all patients but the litany of risks include the following; oversedation of conscious sedation, risk of aspiration pneumonia from regurgitation of stomach contents, risk of oropharyngeal, esophageal, tracheal gastric, esophageal trauma rupture tear and/or dental trauma. Other risks include cardioembolic phenomenon, although again we will use transesophageal echocardiogram guidance to exclude intracardiac thrombus and the patient is willing to restart his Eliquis, risk for induction of pat and/or tachyarrhythmias including need for urgent pacemaker, risk of chest wall abrasion, risk of . The patient expressed understanding of the risks, benefits, and alternative analysis with again opportunity to ask questions, all of which were answered to his self stated satisfaction and he is in agreement to proceed with transesophageal echocardiogram- guided cardioversion in the morning if required. 4. If the patient is able to tolerate restarting the Toprol XL, NOAC and Effient , in addition to the aspirin, Lasix, then we could retrial him on ARB, again watching for recurrence of prior abdominal pain prior to restarting the Lipitor and/or eplerenone. 5. Recommend discontinuation of caffeine. 6. Recommend to keep potassium repleted to 4.0 to 5.0. 7. Other management as per hospitalist medicine service and I have discussed the case with Dr. Du and Ms. Hall of . The above has been discussed in detail with the patient who appears to be in agreement with these recommendations. Dear Dr. Du and Ms. Hall, many thanks for asking me to participate in the cardiovascular consultative care of Mr. Mccracken. He may continue to follow up with his outpatient network intelligence analyst, Dr. Arvizu post discharge. Please do not hesitate to contact me if you have questions or concerns regarding the patient' s cardiovascular consultative care. Addendum: patient with BREANNA in 10/[address] [facility]. Plan for minimum 6 months DAPT but prefer 12 months and can be reevaluated as outpatient. Other as above. [id number]/CPS #: [id number] CC. Dr. Shankar Strong [facility]PITALRed
[2019-04-09] MEDS ORDERED: Magnesium Sulfate 1 GM IV* 1 GM/100 ML BAG IV ONE (21:00)
[2019-04-09] MEDS: Apixaban* 5 MG TAB PO SCH (21:23)
[2019-04-09] MEDS: Metoprolol Tartrate TAB* 25 MG PO SCH (21:23)
[2019-04-09 22:01] LABS: Troponin I 0.47 ng/mL (<0.04)
[2019-04-09] MEDS ORDERED: Diltiazem IV VIAL* 125 MG in NS 0.9% 100 ML* 100 ML IVPB SCH ×4 (22:30)
[2019-04-10] MEDS: Aspirin 81 mg CHEW TAB* 81 MG TAB.CHEW PO SCH ×2 (00:15→10:02)
[2019-04-10 05:43] LABS: ABS Eosinophils 0.1 10^3/ul (0-0.6); ABS Lymphocytes 2.1 10^3/ul (1.0-4.8); ABS Monocytes 0.6 10^3/ul (0-0.8); ABS Neutrophils 4.2 10^3/ul (1.5-7.7); Eosinophil % 1.3 %; Hematocrit 43 % (42-52); Hemoglobin 14.7 g/dL (14.0-18.0); Lymphocyte % 30.2 %; Mean Corpuscular HGB Conc 34 g/dL (31-36); Mean Corpuscular Hemoglobin 32 pg (27-31); Mean Corpuscular Volume 95 fL (80-94); Mean Platelet Volume 10.2 fL (7.4-10.4); Nucleated Red Blood Cells % 0.1; Platelet Count 158 10^3/uL (150-450); Red Blood Count 4.56 10^6 /uL (4.18-5.48); Red Cell Distribution Width 14 % (10-15); White Blood Count 7.1 10^3/uL (3.5-10.8)
[2019-04-10 05:53] LABS: BUN/Creatinine Ratio 16.7 (8-20); Calcium 8.8 mg/dL (8.6-10.3); EGFR African American 59.2 (>60); EGFR Non-African American 48.9 (>60); Potassium 4.1 mmol/L (3.5-5.0)
[2019-04-10] MEDS ORDERED: Perflutren Lipid Microsphere* 3 ML VIAL ONE (09:29)
[2019-04-10] MEDS: Metoprolol Tartrate TAB* 25 MG PO SCH ×2 (10:01→20:57)
[2019-04-10] MEDS: CMCS Prasugrel (NF) 10 MG PO SCH (10:01)
[2019-04-10] MEDS: Apixaban* 5 MG TAB PO SCH ×2 (10:01→20:57)
[2019-04-10] MEDS: Furosemide TAB* 40 MG PO SCH (10:02)
--- NOTE | 2019-04-10 14:23 | ECHO ---
*[facility]* [place] [address] Fax #: [phone] Transthoracic Echocardiogram Patient: Ron Mccracken : 1950 Study Date: 04/10/2019 Age: 68 Gender: M HR: 85 bpm Height: 68 in /172.7 cm BSA: 2.22 m^2 Weight: 241.5 lb /109.8 kg BMI: 36.8 kg/m^2 *Psychology Teacher: * Liz Durand [facility] *Referring Physician: * Deb Hall *Reading Physician: * Jared Latham MD Indications: Atrial Fibrillation. History: Congestive heart failure. Chronic renal failure. PMH: Cardiomyopathy. Labs, prior tests, procedures, and surgery: Catheterization. There was a stenosis which was treated with a stent. Conclusions Summary: - Left ventricle: The cavity size is moderately dilated. Wall thickness is mildly increased. Systolic function is severely reduced. The estimated ejection fraction is 25-30%. Severe diffuse hypokinesis. Doppler parameters are consistent with abnormal left ventricular relaxation (grade 1 diastolic dysfunction). - Right ventricle: Systolic function is moderately reduced. - Left atrium: The atrium is severely dilated. - Right atrium: The atrium is severely dilated. - Mitral valve: There is mild to moderate regurgitation. - Since the prior echocardiogram completed 08/18/18, pertinent change is prior no mitral regurgitation reported. Study data: Transthoracic echocardiogram. Procedure: Transthoracic echocardiography was performed. Image quality was suboptimal. Intravenous Definity , 3 mlswas administered. Complete 2D, spectral Doppler, and color flow Doppler. Location: Bedside. Patient status: Inpatient. Patient room number: 444 02. Findings Left ventricle: The cavity size is moderately dilated. Wall thickness is mildly increased. Systolic function is severely reduced. The estimated ejection fraction is 25-30%. Severe diffuse hypokinesis. Doppler parameters are consistent with abnormal left ventricular relaxation (grade 1 diastolic dysfunction). Right ventricle: The cavity size is normal. Wall thickness is mildly increased. Systolic function is moderately reduced. Left atrium: The atrium is severely dilated. Right atrium: The atrium is severely dilated. Mitral valve: The leaflets are mildly thickened. There is mild to moderate regurgitation. Aortic valve: Not well visualized. The leaflets do not appear thickened. There is no evidence of stenosis. There is trace to mild regurgitation. Tricuspid valve: The leaflets are normal thickness. There is no significant regurgitation. Pulmonic valve: Not well visualized. There is no evidence of stenosis. There is no significant regurgitation. Aorta: The aortic root appears normal. The aortic arch appears normal. Pericardium: There is no significant pericardial effusion. Pulmonary arteries: Not well visualized. Systolic pressure can not be accurately estimated. Systemic veins: Inferior vena cava: The vessel is normal in size. Measurements Left ventricle Value Ref Aortic valve Value Ref ELLEN, LAX (H) 6.8 cm 4.2 - 5.8 Aj diam, ED 2.0 cm ---- ESD, LAX (H) 5.6 cm 2.5 - 4.0 Peak v, S 1.01 m/sec ---- FS, LAX (L) 17 % 25 - 43 VTI, S 16.4 cm ---- PW, ED, LAX (H) 1.1 cm 0.6 - 1.0 Mean grad, S 2.0 mm Hg ---- EF (L) 34 % 52 - 72 Peak grad, S 4.0 mm Hg ---- E', lat aj, TDI 18.1 cm/sec >=10.0 E/e', lat aj, 5 Mitral valve Value Ref TDI Peak E 0.83 m/sec ---- E', med aj, TDI (L) 4.3 cm/sec >=7.0 Peak A 0.35 m/sec - --- E/e', med aj, 19 Decel time 124 ms ---- TDI Mean grad, D 2.0 mm Hg ---- E', avg, TDI 11.2 cm/sec Peak grad, D 3.0 mm Hg ---- E/e', avg, TDI 7 <=14 Peak E/A ratio 2.4 - --- ERO, PISA 0.17 cm^2 ---- LVOT Value Ref MR vol, PISA 18 ml ---- Peak aimee, S 0.6 m/sec Mean grad, S 1 mm Hg Pulmonic valve Value Ref Peak v, S 0.5 m/sec ---- Ventricular septum Value Ref Peak grad, S 1.0 mm Hg ---- IVS, ED 0.9 cm 0.6 - 1.0 Aortic root Value Ref Right ventricle Value Ref Root diam 3.1 cm <4.3 ELLEN, LAX 3.3 cm Root max diam, ED 3.1 cm <4.3 ELLEN minor ax, A4C 2.9 cm 1.9 - 3.5 mid Ascending aorta Value Ref AAo AP diam, S 3.0 cm ---- Left atrium Value Ref AP dim, ES (H) 6.10 cm 3.00 - Aortic arch Value Ref 4.00 Arch diam 2.9 cm ---- ML dim, A4C 4.7 cm SI dim, A4C 7.6 cm Decending aorta Value Ref Vol/bsa, ES, A/L (H) 62 ml/m^2 16 - 34 Lyudmila peak aimee 0.55 m/sec ---- Right atrium Value Ref Inferior vena cava Value Ref SI dim, ES (H) 6.9 cm 3.4 - 5.3 Diam 1.3 cm ---- ML dim, ES, A4C (H) 4.9 cm 2.6 - 4.4 Estimated RAP 8 mm Hg Legend: (L) and (H) miguel values outside specified reference range. Prepared and electronically signed by Jared Latham MD 04/10/2019 14:23
--- NOTE | 2019-04-10 18:28 | PN ---
Subjective Date of Service: 04/10/19 Interval History: Patient seen and examined. Converted to RSR late last night, cardizem DCd. Had run of VT overnight, asymptomatic. Also had chest pain at around 1:30am. At this time, patient denies chest pain, SOB is improved. He states he feels better overall. Very jolene discussion regarding potential need for lifevest vs AICD, patient at first was very resistant. After talking with him and his further, patient seems much more amenable to treatment and compliance with medication recommendations. Objective Active Medications: Acetaminophen (Tylenol Tab*) 650 mg PO Q4H PRN PRN Reason: MILD PAIN or TEMP > 100.4 Last Admin: 04/10/19 00:15 Dose: 650 mg Apixaban (Eliquis*) 5 mg PO BID [facility] Last Admin: 04/10/19 10:01 Dose: 5 mg Aspirin (Aspirin 81 Mg Chew Tab*) 81 mg PO DAILY [facility] Last Admin: 04/10/19 10:02 Dose: 81 mg Furosemide (Lasix Tab*) 40 mg PO DAILY [facility] Last Admin: 04/10/19 10:02 Dose: 40 mg Magnesium Hydroxide ([facility] Liq*) 30 ml PO Q4H PRN PRN Reason: CONSTIPATION Metoprolol Tartrate (Lopressor Tab*) 25 mg PO BID [facility] Last Admin: 04/10/19 10:01 Dose: 25 mg Prasugrel (Effient (Nf)) 10 mg PO DAILY [facility] Last Admin: 04/10/19 10:01 Dose: 10 mg Vital Signs - 8 hr 04/10/19 04/10/19 11:27 15:16 Temperature 98.1 F 97 F Pulse Rate 73 79 Respiratory 16 16 Rate Blood Pressure 115/70 105/69 (mmHg) O2 Sat by Pulse 97 97 Oximetry Oxygen Devices in Use Now: None Appearance: alert, NAD Ears/Nose/Mouth/Throat: NL Teeth, Lips, Gums Neck: NL Appearance and Movements; NL JVP, Trachea Midline Respiratory: Symmetrical Chest Expansion and Respiratory Effort Cardiovascular: NL Sounds; No Murmurs; No JVD, RRR Abdominal: NL Sounds; No Tenderness; No Distention Extremities: No Edema, No Clubbing, Cyanosis Skin: No Rash or Ulcers Neurological: Alert and Oriented x 3, NL Gait Nutrition: Taking PO's Result Diagrams: 04/10/19 05:11 04/10/19 05:11 Diagnostic Imaging: *[facility]* [place] [address] Fax #: [phone] Transthoracic Echocardiogram Patient: Ron Mccracken : 1950 Study Date: 04/10/2019 Age: 68 Gender: M HR: 85 bpm Height: 68 in /172.7 cm BSA: 2.22 m^2 Weight: 241.5 lb /109.8 kg BMI: 36.8 kg/m^2 *Magnetic Prospecting Operator: Liz Vega [facility] *Referring Physician: Deb Murray *Reading Physician: * Jared Latham MD Indications: Atrial Fibrillation. History: Congestive heart failure. Chronic renal failure. PMH: Cardiomyopathy. Labs, prior tests, procedures, and surgery: Catheterization. There was a stenosis which was treated with a stent. Conclusions Summary: - Left ventricle: The cavity size is moderately dilated. Wall thickness is mildly increased. Systolic function is severely reduced. The estimated ejection fraction is 25-30%. Severe diffuse hypokinesis. Doppler parameters are consistent with abnormal left ventricular relaxation (grade 1 diastolic dysfunction). - Right ventricle: Systolic function is moderately reduced. - Left atrium: The atrium is severely dilated. - Right atrium: The atrium is severely dilated. - Mitral valve: There is mild to moderate regurgitation. Assess/Plan/Problems-Billing Assessment: This is a 68 year old male with hx of non-ischemic CM and CAD that presents to the ED with increased SOB and palpitations, found to be in rapid afib with RVR and positive troponin. - Patient Problems (1) Atrial fibrillation with RVR Code(s): I48.91 - UNSPECIFIED ATRIAL FIBRILLATION SNOMED Code(s): 194394058082385 Comment: - Cardizem stopped after spontaneous conversion overnight, no need for TEECV - Restarted eliquis - Restarted BB (2) Chest pain Code(s): R07.9 - CHEST PAIN, UNSPECIFIED SNOMED Code(s): 37667492 Comment: - Admission by patient of non-compliance with home meds - Had BREANNA to 90% lesion in the ramus in October of this year at [facility] - Restarted effient, lasix, ASA, BB and eliquis - Plan for cardiac cath on Saturday, as ECHO today shows some recovery of EF to 25-30% (3) Elevated troponin Code(s): R74.8 - ABNORMAL LEVELS OF OTHER SERUM ENZYMES SNOMED Code(s): 078456767 Comment: - NSTEMI in the setting of non-compliance with meds - Some home meds restarted as above, will restart atorvastatin today, losartan tomorrow and Inspra saturday and continue to monitor for any adverse effects - trops trending down - plan for cath saturday, as EF has some modest recovery on today's ECHO - will need AICD - Appreciate continued guidance from cardiology (4) CKD (chronic kidney disease), stage III Code(s): N18.3 - CHRONIC KIDNEY DISEASE, STAGE 3 (MODERATE) SNOMED Code(s): 592807854 Comment: - Slight increase in creat, appears to have been increased since August of this year - Continue to monitor (5) Nonischemic cardiomyopathy Code(s): I42.8 - OTHER CARDIOMYOPATHIES SNOMED Code(s): 51904304 Comment: - EF around 15% in October, per today's ECHO, 25-30% - BB and lasix continued (6) NSVT (nonsustained ventricular tachycardia) Code(s): I47.2 - VENTRICULAR TACHYCARDIA SNOMED Code(s): 632642831 Comment: - Replete lytes - In setting of cardiomyopathy and being off betablocker - continue tele (7) Full code status Code(s): Z78.9 - OTHER SPECIFIED HEALTH STATUS SNOMED Code(s): 957366310 Status and Disposition: Inpatient, Plan for cath Saturday, then AICD. Keep NPO after midnight on Saturday
[2019-04-10] MEDS ORDERED: Atorvastatin* 80 MG TAB PO ONE (21:00)
[2019-04-11 06:54] LABS: BUN/Creatinine Ratio 21.9 (8-20); Calcium 8.2 mg/dL (8.6-10.3); EGFR African American 77.5 (>60); EGFR Non-African American 64.1 (>60); Potassium 3.6 mmol/L (3.5-5.0)
[2019-04-11] MEDS: Apixaban* 5 MG TAB PO SCH (09:40)
[2019-04-11] MEDS: Furosemide TAB* 40 MG PO SCH (09:40)
[2019-04-11] MEDS: Metoprolol Tartrate TAB* 25 MG PO SCH ×2 (09:41→20:58)
[2019-04-11] MEDS: Aspirin 81 mg CHEW TAB* 81 MG TAB.CHEW PO SCH (09:41)
[2019-04-11] MEDS: CMCS Prasugrel (NF) 10 MG PO SCH (09:41)
--- NOTE | 2019-04-11 18:16 | PN ---
Subjective Date of Service: 04/11/19 Interval History: No chest pain but notes he has not walked around denies SOB, LH, N/V Objective Active Medications: Acetaminophen (Tylenol Tab*) 650 mg PO Q4H PRN PRN Reason: MILD PAIN or TEMP > 100.4 Last Admin: 04/10/19 00:15 Dose: 650 mg Apixaban (Eliquis*) 5 mg PO BID [facility] Stop: 04/11/19 21:01 Apixaban (Eliquis*) 5 mg PO BID [facility] Aspirin (Aspirin 81 Mg Chew Tab*) 81 mg PO DAILY [facility] Last Admin: 04/11/19 09:41 Dose: 81 mg Furosemide (Lasix Tab*) 40 mg PO DAILY [facility] Last Admin: 04/11/19 09:40 Dose: 40 mg Magnesium Hydroxide (Milk Of Magnesia Liq*) 30 ml PO Q4H PRN PRN Reason: CONSTIPATION Metoprolol Tartrate (Lopressor Tab*) 25 mg PO BID [facility] Last Admin: 04/11/19 09:41 Dose: 25 mg Prasugrel (Effient (Nf)) 10 mg PO DAILY [facility] Last Admin: 04/11/19 09:41 Dose: 10 mg Oxygen Devices in Use Now: None Appearance: NAD Eyes: No Scleral Icterus, PERRLA Ears/Nose/Mouth/Throat: NL Teeth, Lips, Gums, Clear Oropharnyx Neck: NL Appearance and Movements; NL JVP, Trachea Midline Respiratory: Symmetrical Chest Expansion and Respiratory Effort, Clear to Auscultation Cardiovascular: RRR Abdominal: NL Sounds; No Tenderness; No Distention, No Hepatosplenomegaly Lymphatic: No Cervical Adenopathy Neurological: Alert and Oriented x 3 Result Diagrams: 04/10/19 05:11 04/11/19 06:15 Diagnostic Imaging: *[facility]* [place] [address] Fax #: [phone] Transthoracic Echocardiogram Patient: Kaykay Ron E : 1950 Study Date: 04/10/2019 Age: 68 Gender: M HR: 85 bpm Height: 68 in /172.7 cm BSA: 2.22 m^2 Weight: 241.5 lb /109.8 kg BMI: 36.8 kg/m^2 *Interlocking Installer: * Liz Durand [facility] *Referring Physician: Deb Murray *Reading Physician: * Jared Latham MD Indications: Atrial Fibrillation. History: Congestive heart failure. Chronic renal failure. PMH: Cardiomyopathy. Labs, prior tests, procedures, and surgery: Catheterization. There was a stenosis which was treated with a stent. Conclusions Summary: - Left ventricle: The cavity size is moderately dilated. Wall thickness is mildly increased. Systolic function is severely reduced. The estimated ejection fraction is 25-30%. Severe diffuse hypokinesis. Doppler parameters are consistent with abnormal left ventricular relaxation (grade 1 diastolic dysfunction). - Right ventricle: Systolic function is moderately reduced. - Left atrium: The atrium is severely dilated. - Right atrium: The atrium is severely dilated. - Mitral valve: There is mild to moderate regurgitation. Assess/Plan/Problems-Billing Assessment: This is a 68 year old male with hx of non-ischemic CM and CAD that presents to the ED with increased SOB and palpitations, found to be in rapid afib with RVR and positive troponin now with planned LHC and PPM for Saturday - Patient Problems (1) Atrial fibrillation with RVR Comment: - Cardizem stopped after spontaneous conversion overnight, no need for TEECV - Restarted eliquis (does held prior to LH tomorrow at cardiology request) - Restarted BB (2) CKD (chronic kidney disease), stage III Comment: - Improved - Continue to monitor (3) Chest pain Comment: - Admission by patient of non-compliance with home meds - Had BREANNA to 90% lesion in the ramus in October of this year at [facility] - Restarted effient, lasix, ASA, BB and eliquis this stay - Plan for cardiac cath on Saturday, as ECHO today shows some recovery of EF to 25-30% (4) Elevated troponin Comment: - NSTEMI in the setting of non-compliance with meds - Some home meds restarted as above, and atorvastatin, losartan then Inspra saturday and continue to monitor for any adverse effects - trops trending down - plan for cath saturday, as EF has some modest recovery on today's ECHO - will need AICD - Appreciate continued guidance from cardiology (5) Nonischemic cardiomyopathy Current Visit: No Status: Acute Code(s): I42.8 - OTHER CARDIOMYOPATHIES SNOMED Code(s): 34939618 Comment: - EF around 15% in October, now improved to ECHO, 25-30% - BB and lasix continued (6) NSVT (nonsustained ventricular tachycardia) Current Visit: No Status: Inactive Onset Date: 12/08/14 Code(s): I47.2 - VENTRICULAR TACHYCARDIA SNOMED Code(s): 000819058 Comment: - Replete lytes - In setting of cardiomyopathy and being off betablocker - continue tele Status and Disposition: Inpatient, Plan for cath/PPM Saturday after discussion with cardiology today
[2019-04-11] MEDS ORDERED: Apixaban* 5 MG TAB PO SCH (21:00)
[2019-04-11] MEDS ORDERED: Digoxin IV* 0.5 MG/2 ML AMP (0.25 MG/ML) IV SLOW PU ONE (23:11)
[2019-04-12] MEDS: Metoprolol Tartrate IV* 1 MG/ML 5 ML VIAL IV PRN ×2 (03:17→18:12)
[2019-04-12 03:55] LABS: Troponin I 0.21 ng/mL (<0.04)
[2019-04-12] MEDS: Metoprolol Tartrate TAB* 25 MG PO SCH ×3 (06:44→21:48)
[2019-04-12 07:02] LABS: Troponin I 0.23 ng/mL (<0.04)
[2019-04-12] MEDS ORDERED: Metoprolol Tartrate IV* 1 MG/ML 5 ML VIAL IV ONE (07:25)
[2019-04-12] MEDS: Aspirin 81 mg CHEW TAB* 81 MG TAB.CHEW PO SCH (09:19)
[2019-04-12] MEDS: CMCS Prasugrel (NF) 10 MG PO SCH (09:19)
[2019-04-12] MEDS: Furosemide TAB* 40 MG PO SCH (09:19)
[2019-04-12 09:53] LABS: Troponin I 0.21 ng/mL (<0.04)
[2019-04-12 13:52] LABS: ABS Basophils 0.1 10^3/ul (0-0.2); ABS Eosinophils 0.1 10^3/ul (0-0.6); ABS Monocytes 0.5 10^3/ul (0-0.8); ABS Neutrophils 3.3 10^3/ul (1.5-7.7); Eosinophil % 2.1 %; Hematocrit 46 % (42-52); Hemoglobin 16.1 g/dL (14.0-18.0); Lymphocyte % 33.7 %; Mean Corpuscular HGB Conc 35 g/dL (31-36); Mean Corpuscular Hemoglobin 33 pg (27-31); Mean Corpuscular Volume 95 fL (80-94); Mean Platelet Volume 10.2 fL (7.4-10.4); Nucleated Red Blood Cells % 0.1; Platelet Count 155 10^3/uL (150-450); Red Blood Count 4.87 10^6 /uL (4.18-5.48); Red Cell Distribution Width 14 % (10-15)
[2019-04-12 14:09] LABS: BUN/Creatinine Ratio 18.3 (8-20); Calcium 8.7 mg/dL (8.6-10.3); EGFR Non-African American 54.6 (>60); Potassium 3.7 mmol/L (3.5-5.0)
--- NOTE | 2019-04-12 16:27 | PN ---
Subjective Date of Service: 04/12/19 Interval History: afib overnight, given dig and metoprolol IV this morning with conversion This AM feels tired because he didn't sleep denies CP, SOB, N/V Objective Active Medications: Acetaminophen (Tylenol Tab*) 650 mg PO Q4H PRN PRN Reason: MILD PAIN or TEMP > 100.4 Last Admin: 04/10/19 00:15 Dose: 650 mg Apixaban (Eliquis*) 5 mg PO BID [facility] Aspirin (Aspirin 81 Mg Chew Tab*) 81 mg PO DAILY [facility] Last Admin: 04/12/19 09:19 Dose: 81 mg Furosemide (Lasix Tab*) 40 mg PO DAILY [facility] Last Admin: 04/12/19 09:19 Dose: 40 mg Magnesium Hydroxide (Milk Of Magnjoshua Liq*) 30 ml PO Q4H PRN PRN Reason: CONSTIPATION Metoprolol Tartrate (Lopressor Tab*) 25 mg PO BID [facility] Last Admin: 04/12/19 08:14 Dose: Not Given Metoprolol Tartrate (Lopressor Iv*) 5 mg IV Q6H PRN PRN Reason: TACHYCARDIA Last Admin: 04/12/19 03:17 Dose: 5 mg Prasugrel (Effient (Nf)) 10 mg PO DAILY [facility] Last Admin: 04/12/19 09:19 Dose: 10 mg Vital Signs - 8 hr 04/12/19 04/12/19 12:09 15:32 Temperature 98.1 F 97.0 F Pulse Rate 60 70 Respiratory 18 16 Rate Blood Pressure 105/71 128/63 (mmHg) O2 Sat by Pulse 98 99 Oximetry Oxygen Devices in Use Now: None Appearance: NAD Eyes: No Scleral Icterus, PERRLA Ears/Nose/Mouth/Throat: NL Teeth, Lips, Gums, Clear Oropharnyx Neck: NL Appearance and Movements; NL JVP Respiratory: Symmetrical Chest Expansion and Respiratory Effort, Clear to Auscultation Cardiovascular: - - RRR Abdominal: - - obese, NTTP, soft Extremities: - - 1+ LE edema Neurological: Alert and Oriented x 3 Result Diagrams: 04/12/19 13:32 04/12/19 13:32 Diagnostic Imaging: *[facility] [place] [address] Fax #: [phone] Transthoracic Echocardiogram Patient: Ron Mccracken : 1950 Study Date: 04/10/2019 Age: 68 Gender: M HR: 85 bpm Height: 68 in /172.7 cm BSA: 2.22 m^2 Weight: 241.5 lb /109.8 kg BMI: 36.8 kg/m^2 *Catering Truck Operator: Liz Vega [facility] *Referring Physician: Deb Murray *Reading Physician: * Jared Latham MD Indications: Atrial Fibrillation. History: Congestive heart failure. Chronic renal failure. PMH: Cardiomyopathy. Labs, prior tests, procedures, and surgery: Catheterization. There was a stenosis which was treated with a stent. Conclusions Summary: - Left ventricle: The cavity size is moderately dilated. Wall thickness is mildly increased. Systolic function is severely reduced. The estimated ejection fraction is 25-30%. Severe diffuse hypokinesis. Doppler parameters are consistent with abnormal left ventricular relaxation (grade 1 diastolic dysfunction). - Right ventricle: Systolic function is moderately reduced. - Left atrium: The atrium is severely dilated. - Right atrium: The atrium is severely dilated. - Mitral valve: There is mild to moderate regurgitation. Assess/Plan/Problems-Billing Assessment: This is a 68 year old male with hx of non-ischemic CM and CAD that presents to the ED with increased SOB and palpitations, found to be in rapid afib with RVR and positive troponin now with planned LHC and PPM for Saturday - Patient Problems (1) Atrial fibrillation with RVR Comment: - Cardizem stopped after spontaneous conversion overnight on admission - Discussed with cards, if returns into afib again plan on ICU with amiodarone load - If in afib in AM will likely need JOSE cardioversion prior to LHC - Restarted eliquis (dose held prior to LH tomorrow at cardiology request) - Restarted BB (2) CKD (chronic kidney disease), stage III Comment: - worsening this AM in setting of RVR overnight - Continue to monitor (3) Chest pain Comment: - Admission by patient of non-compliance with home meds - Had BREANNA to 90% lesion in the ramus in October of this year at [facility] - Restarted effient, lasix, ASA, BB and eliquis this stay - Plan for cardiac cath on Saturday, as ECHO today shows some recovery of EF to 25-30% (4) Elevated troponin Comment: - NSTEMI in the setting of non-compliance with meds - Some home meds restarted as above, and atorvastatin - aldactone, losartan and eplerenone not yet restarted with lower BPs in setting of RVR (unclear why aldactone and eplerenone are both on home meds) - trops trending down - plan for cath saturday, as EF has some modest recovery on today's ECHO - will need AICD - Appreciate continued guidance from cardiology (5) Nonischemic cardiomyopathy Current Visit: No Status: Acute Code(s): I42.8 - OTHER CARDIOMYOPATHIES SNOMED Code(s): 15715499 Comment: - EF around 15% in October, now improved to ECHO, 25-30% - BB and lasix continued (6) NSVT (nonsustained ventricular tachycardia) Current Visit: No Status: Inactive Onset Date: 12/08/14 Code(s): I47.2 - VENTRICULAR TACHYCARDIA SNOMED Code(s): 317345764 Comment: - Replete lytes - In setting of cardiomyopathy and being off betablocker - continue tele Status and Disposition: Inpatient, Plan for cath/PPM Saturday after discussion with cardiology today
[2019-04-12] MEDS ORDERED: Amiodarone 360 MG IVPREMIX* 360 MG/200 ML BAG IV ONE ×2 (18:30→18:36)
[2019-04-12] MEDS ORDERED: Amiodarone 150 MG IVPREMIX* 150 MG/100 ML BAG IV ONE ×2 (18:40→18:41)
[2019-04-12] MEDS ORDERED: Morphine 10 MG/ML VIAL (1 ml) IV ONE (18:42)
[2019-04-12] MEDS ORDERED: Apixaban* 5 MG TAB PO SCH (21:00)
[2019-04-13] MEDS: Amiodarone 360 MG IVPREMIX* 360 MG/200 ML BAG IV SCH ×2 (00:28→10:30)
[2019-04-13 07:45] LABS: BUN/Creatinine Ratio 21.5 (8-20); Calcium 8.5 mg/dL (8.6-10.3); EGFR African American 66.6 (>60); EGFR Non-African American 55.1 (>60); Potassium 3.8 mmol/L (3.5-5.0)
--- NOTE | 2019-04-13 09:01 | PN ---
Subjective Date of Service: 04/13/19 Interval History: HD 5 on 04/13 68 M with distant hx of viral NICM with HFrEF 20%-30% (never got AICD), CAD with recent PCI to ramus in 10/2018 c/b non compliance to DAPT post PCI, CKD, AF/ AFl on AC, hx of sternal fracture and CLBP who is presenting for chest pain, thought to be arrythmia vs possible CAD related. Overnight, some mild chest pain in setting of arrhythmia, troponins not drawn, EKG with ectopy and STD. VSS Labs: Cr stable at 1.3, Mag 2 Pt did recieve anticoagulation last night, making him not a candidate for AICD, initial plan was to undergo cath and AICD placement today, along with possible cardioversion , now unable to place PPM/AICD and cath if it were to show lesion from non compliance we would be unable to place PCI 2/2 to his known low EF. Per cardiology pt and family considering transfer to [facility]. This morning pt feeling well, no acute complaints or distress, currently NPO but was tolerating diet and voiding freely, no current CP or SOB, GI or MSK complaints. Objective Active Medications: Acetaminophen (Tylenol Tab*) 650 mg PO Q4H PRN PRN Reason: MILD PAIN or TEMP > 100.4 Last Admin: 04/10/19 00:15 Dose: 650 mg Apixaban (Eliquis*) 5 mg PO BID [facility] Last Admin: 04/12/19 21:46 Dose: 5 mg Aspirin (Aspirin 81 Mg Chew Tab*) 81 mg PO DAILY [facility] Last Admin: 04/12/19 09:19 Dose: 81 mg Furosemide (Lasix Tab*) 40 mg PO DAILY [facility] Last Admin: 04/12/19 09:19 Dose: 40 mg Amiodarone HCl (Nexterone 360 Mg/200 Ml Ivpremix*) 360 mg in 200 mls @ 16.667 mls/hr IV .SEE PROTOCOL [facility] Last Admin: 04/13/19 00:28 Dose: 16.667 mls/hr Magnesium Hydroxide (Milk Of Magnesia Liq*) 30 ml PO Q4H PRN PRN Reason: CONSTIPATION Metoprolol Tartrate (Lopressor Tab*) 25 mg PO BID [facility] Last Admin: 04/12/19 21:48 Dose: Not Given Metoprolol Tartrate (Lopressor Iv*) 5 mg IV Q6H PRN PRN Reason: TACHYCARDIA Last Admin: 04/12/19 18:12 Dose: 5 mg Prasugrel (Effient (Nf)) 10 mg PO DAILY [facility] Last Admin: 04/12/19 09:19 Dose: 10 mg Vital Signs - 8 hr 04/13/19 04/13/19 04/13/19 01:00 01:15 01:30 Temperature Pulse Rate 82 70 67 Respiratory 32 25 25 Rate Blood Pressure 101/61 88/65 94/64 (mmHg) O2 Sat by Pulse 95 94 95 Oximetry 04/13/19 04/13/19 04/13/19 01:52 02:00 02:01 Temperature Pulse Rate 75 74 72 Respiratory 29 14 19 Rate Blood Pressure 106/56 114/64 (mmHg) O2 Sat by Pulse 97 97 97 Oximetry 04/13/19 04/13/19 04/13/19 02:15 02:31 02:45 Temperature Pulse Rate 72 64 66 Respiratory 24 26 26 Rate Blood Pressure 114/73 106/65 104/66 (mmHg) O2 Sat by Pulse 98 95 95 Oximetry 04/13/19 04/13/19 04/13/19 03:00 03:01 03:15 Temperature Pulse Rate 53 57 62 Respiratory 25 26 21 Rate Blood Pressure 97/60 115/70 (mmHg) O2 Sat by Pulse 95 94 96 Oximetry 04/13/19 04/13/19 04/13/19 03:30 03:45 04:00 Temperature 97.8 F Pulse Rate 76 61 74 Respiratory 30 23 25 Rate Blood Pressure 123/77 109/63 114/64 (mmHg) O2 Sat by Pulse 91 96 95 Oximetry 04/13/19 04/13/19 04/13/19 04:01 04:16 04:30 Temperature Pulse Rate 58 59 72 Respiratory 26 22 24 Rate Blood Pressure 112/62 105/74 (mmHg) O2 Sat by Pulse 96 96 95 Oximetry 04/13/19 04/13/19 04/13/19 05:00 05:09 05:17 Temperature Pulse Rate 68 68 71 Respiratory 18 27 20 Rate Blood Pressure 130/66 127/79 126/65 (mmHg) O2 Sat by Pulse 95 96 93 Oximetry 04/13/19 04/13/19 04/13/19 05:30 06:00 06:30 Temperature Pulse Rate 69 78 60 Respiratory 18 18 20 Rate Blood Pressure 123/87 110/71 96/57 (mmHg) O2 Sat by Pulse 90 93 95 Oximetry 04/13/19 04/13/19 07:00 07:50 Temperature 97.8 F Pulse Rate 64 Respiratory 25 Rate Blood Pressure 103/62 (mmHg) O2 Sat by Pulse 95 Oximetry Oxygen Devices in Use Now: Nasal Cannula Appearance: Pleasant man in NAD Eyes: No Scleral Icterus, PERRLA Ears/Nose/Mouth/Throat: NL Teeth, Lips, Gums Neck: NL Appearance and Movements; NL JVP Respiratory: Clear to Auscultation Cardiovascular: NL Sounds; No Murmurs; No JVD, - - Irreg irreg no MRG, distant heart sounds Abdominal: NL Sounds; No Tenderness; No Distention Lymphatic: No Cervical Adenopathy Extremities: - - 1+ pitting edema blt ankles, otherwise warm well perfused Skin: No Rash or Ulcers Neurological: Alert and Oriented x 3 Result Diagrams: 04/13/19 09:51 04/13/19 07:12 Microbiology and Other Data: Microbiology 04/12/19 18:47 Nasal Screen MRSA (PCR) - Final Nasal Mrsa Not Detected Diagnostic Imagin/6 Conclusions Summary: - Left ventricle: The cavity size is moderately dilated. Wall thickness is mildly increased. Systolic function is severely reduced. The estimated ejection fraction is 25-30%. Severe diffuse hypokinesis. Doppler parameters are consistent with abnormal left ventricular relaxation (grade 1 diastolic dysfunction). - Right ventricle: Systolic function is moderately reduced. - Left atrium: The atrium is severely dilated. - Right atrium: The atrium is severely dilated. - Mitral valve: There is mild to moderate regurgitation. EKG Data: 04/13 Sinus with frequent ectopy, IVCD no acute KIRBY or STD Assess/Plan/Problems-Billing Assessment: 68 M with distant hx of viral NICM with HFrEF 20%-30% (never got AICD), CAD with recent PCI to ramus in 10/2018 ([facility]) c/b non compliance to DAPT post PCI , CKD, AF/AFl on AC, hx of sternal fracture and CLBP who is presenting for chest pain, thought to be arrhythmia vs possible CAD related. - Patient Problems (1) Chest pain Current Visit: Yes Status: Acute Code(s): R07.9 - CHEST PAIN, UNSPECIFIED SNOMED Code(s): 90124786 Comment: - Etiology 2/2 to arryhtmia vs worsening/new CAD in setting of non compliance with DAPT and PCI in October 2018. Cardiology thinking unlikely ACS given low troponin, though [facility] to [facility]. If there were a lesion, [facility] unable to intervene 2/2 to stable low EF. Considering transfer to [facility] where PCI could be done in event there is ISR or new lesion. - Restarted prasugrel/asa, BB and eliquis this stay, hold eliquis start heparin gtt in its place for possible outside intervention and shorter 1/2 life. (2) Atrial fibrillation with RVR Current Visit: Yes Status: Acute Code(s): I48.91 - UNSPECIFIED ATRIAL FIBRILLATION SNOMED Code(s): 341449735854552 Comment: - Cardizem stopped after spontaneous conversion, now returns with some ectopy on amio gtt in ICU, await cards recommendations for oral amio vs cardioversion - Remains on BB, AC with heparin gtt, hold Eliquis - Mag >2, K > 4, currently both stable (3) CKD (chronic kidney disease), stage III Current Visit: Yes Status: Acute Code(s): N18.3 - CHRONIC KIDNEY DISEASE, STAGE 3 (MODERATE) SNOMED Code(s): 359904124 Comment: - Stable, dose meds renally, allergy to ACEI (4) Chronic systolic (congestive) heart failure Current Visit: No Status: Acute Code(s): I50.22 - CHRONIC SYSTOLIC ( CONGESTIVE) HEART FAILURE SNOMED Code(s): 602330922 Comment: - 2/2 to NICM thought to be viral in 2014, also with recent ramus CAD (PCI in 10/2018) possible mixed - Last echo 04/10 EF 25-30% - continue home Lasix, allergy to ACEI, consider aldactone to optimize - AICD for optimization still needed (5) DVT prophylaxis Current Visit: No Status: Inactive Onset Date: 12/08/14 Code(s): DVL2689 - SNOMED Code(s): 817663357 Comment: - Heparin gtt (6) Full code status Current Visit: No Status: Acute Code(s): Z78.9 - OTHER SPECIFIED HEALTH STATUS SNOMED Code(s): 329393259 Status and Disposition: Order changes 04/13: Stop eliquis, start diet, await cardiology input on amio oral dosing Possible xfer to Supply Person for above reasons
[2019-04-13] MEDS ORDERED: Heparin DRIP 25,000 UNITS(*) 25,000 UNITS/500 ML BAG IV SCH (09:15)
[2019-04-13] MEDS: Metoprolol Tartrate TAB* 25 MG PO SCH (09:38)
[2019-04-13] MEDS: Aspirin 81 mg CHEW TAB* 81 MG TAB.CHEW PO SCH (09:39)
[2019-04-13] MEDS: Furosemide TAB* 40 MG PO SCH (09:39)
[2019-04-13] MEDS ORDERED: Heparin VIAL(*) 5000 UNITS/ML VIAL (FIVE THOUSAND) IV SCH (10:00)
[2019-04-13 10:39] LABS: ABS Basophils 0.1 10^3/ul (0-0.2); ABS Eosinophils 0.1 10^3/ul (0-0.6); ABS Lymphocytes 1.6 10^3/ul (1.0-4.8); ABS Monocytes 0.5 10^3/ul (0-0.8); ABS Neutrophils 4.9 10^3/ul (1.5-7.7); Eosinophil % 1.5 %; Hematocrit 43 % (42-52); Hemoglobin 15.1 g/dL (14.0-18.0); Lymphocyte % 22.8 %; Mean Corpuscular HGB Conc 35 g/dL (31-36); Mean Corpuscular Hemoglobin 33 pg (27-31); Mean Corpuscular Volume 94 fL (80-94); Mean Platelet Volume 10.9 fL (7.4-10.4); Platelet Count 154 10^3/uL (150-450); Red Blood Count 4.54 10^6 /uL (4.18-5.48); Red Cell Distribution Width 14 % (10-15); White Blood Count 7.2 10^3/uL (3.5-10.8)
[2019-04-13] MEDS: CMCS Prasugrel (NF) 10 MG PO SCH (11:21)
--- NOTE | 2019-04-13 13:53 | TRS ---
DATE OF ADMISSION: 04/09/2019. DATE OF TRANSFER: 04/13/2019. PRIMARY CARE PHYSICIAN: Dr. Jose A Strong. GEOPHYSICAL PROSPECTING PERMIT AGENT: Dr. Jared Latham. DISPOSITION AT THE TIME OF TRANSFER: Stable to [facility]. REASON FOR TRANSFER: Catheterization in the setting of a low ejection fraction and possible need for cardioversion and pacemaker/AICD placement. ACCEPTING PHYSICIAN: Home Sales Consultant Dr. Lemons. PRIMARY DIAGNOSIS: Chest pain in the setting of heart failure with reduced ejection fraction, afib/Aflutter in RVR, and CAD with recent noncompliance to dual antiplatelet therapy. SECONDARY DIAGNOSES: CKD, A-fib/aflutter on chronic anticoagulation, history of distant viral nonischemic cardiomyopathy with a known ejection fraction of 20 to 30 percent, CAD status post PCI to [facility] in October [address] [facility] complicated by noncompliance to dual antiplatelet therapy two weeks prior to admission and history of sternal fracture with chronic musculoskeletal chest pain and chronic low back pain. MEDICATIONS AT THE TIME OF TRANSFER: 1. Acetaminophen 650 mg p.o. q.4 hours prn for pain. 2. Amiodarone drip which was recently discontinued as of 04/10/2019 a.m. 3. Aspirin 81 mg p.o. daily. 4. Furosemide 40 mg p.o. daily. 5. Heparin drip for anticoagulation in the setting of atrial fibrillation. 6. Metoprolol 5 mg IV q.6 hours prn for heart rate greater than 120. 7. Metoprolol Tartrate 25 mg p.o. b.i.d. 8. Prasugrel 10 mg p.o. daily, last dose 04/13/2019 9:00 a.m. 9. Aspirin 81 mg p.o. daily, last dose 04/13/2019 9:00 a.m. 10. Eliquis last dose 04/12/2019 p.m. 11. Heparin drip started 04/13/2019 a.m. 12. Amiodarone drip started 04/13/2019 p.m HISTORY OF PRESENT ILLNESS: This 68-year-old male with the above past medical history who presented to the emergency room on 04/09/2019= with complaint of chest pain, palpitations and shortness of breath. Per the patient's history, he had actually stopped taking all of his cardiac meds about two weeks ago because he felt that the drugs were making his nauseous. He has been hospitalized twice in August and in October for shortness of breath and chest pain and was actually admitted to [facility] for a high risk cardiac catheterization with surgical back up on 10/11/2018 where he had a ramus lesion at 90 percent which a PCI was done. He does have severe cardiomyopathy at baseline with an ejection fracture of 20 percent. He has never had AICD placed. He re-presented to the emergency room and was found to be in aflutter with rate to the 130s-140s. Blood pressure was stable. A Cardizem drip was started and patient was admitted to [facility] with hospital course by problem: HOSPITAL COURSE BY PROBLEM: 1. Aflutter with RVR: He converted spontaneously with Diltiazem drip and a cardioversion was initially held. Eliquis and beta ace were restarted around 04/12/2019. The patient again went into A-fib/flutter 04/12/2019 and at this point Amio drip was started and the patient was transferred back to the ICU. Plan for cardioversion along with left heart cath as well as possible AICD was initially planned for 04/13/2019, though patient did received Eliquis on 04/12/2019 making him not a candidate for AICD placement with recent anticoagulation by Eliquis, his AC was changed to heparin on 04/13/19 am. The patient from a rhythm standpoint spontaneously converted back to sinus rhythm while on Amio drip and Amio drip is continued without any oral loading. 2. CAD: Again, the patient had a recent PCI to [facility] in October 2018. He was noncompliant with his dual antiplatelet therapy and was restarted on aspirin, Prasugrel, and Atorvastatin without complication. His anticoagulation is as per above.Cardiology felt that if there was indeed a CAD lesion, that they would be unable to intervene upon it given his high risk status and thus transfer process was initiated. 3. Heart failure with reduced ejection fraction: Repeat echocardiogram was done on 04/10/2019 which showed an ejection fraction of 25 to 30 percent with severe diffuse hypokinesis, also grade one diastolic dysfunction, mildly improved from prior ejection fraction of 20 percent, though still meeting criteria for AICD placement given his now new arrhythmia. DVT prophylaxis as per above was managed on Eliquis and then changed to Heparin drip on the morning on 04/13/2019 for more flexibility for possible planned procedures at [facility] after Cardiology team discussed with cardiologists and Dr. Lemnos accepted the patient for transfer. 4. Code status: Full. Overall, the patient was admitted for chest pain in the setting of new arrhythmia which spontaneously resolved with first Diltiazem, then Amiodarone. The patient continues to have intermittent mild chest pain with no acute signs of EKG changes, although troponins were relatively elevated 04/12/2019 at 0.23, 0.21 and thus active CAD lesion cannot be ruled out. Given his need for high risk catheterization, [facility] was contacted to once again recatheterize the patient in the setting of noncompliance, although likely his chest pain is arrhythmia related. He nonetheless will need pacemaker and AICD for optimization from his heart failure and his recent Eliquis on 04/12/2019 p.m. withholds us from being able to do this procedure on 04/13/2019. The patient is being transferred for high risk left heart catheterization and concordant PPM and AICD placement, possible cardioversion in the event the patient is to go back into A-fib or flutter. LABORATORY DATA AND STUDIES DONE DURING THIS HOSPITALIZATION: 1. Echocardiogram on 04/10/2019 which showed an ejection fraction of 25 to 30 percent and grade one diastolic dysfunction was noted. Results will be attached to this transfer summary. 2. Chest x-ray done on 04/09/2019 which showed no active cardiopulmonary disease. 3. EKG's were done which showed an A-fib with RVR and then last EKG on 2018 showed sinus rhythm with frequent ectopy and no active signs of ischemia. CONSULTANTS DURING THIS HOSPITALIZATION: Cardiologists Dr. Jared Latham, as well as Dr. Javier Odell who discussed the case with the Cardiology team in [facility] who accepted the patient for admission. ITEMS TO FOLLOW-UP STATUS POST DISCHARGE: 1. Heart failure, reduced ejection fraction: Needs AICD and now has complication of frequent arrhythmia, likely causing his chest pain. 2. Noncompliance in the setting of recent CAD. The patient has self-described non- willingness to take medications secondary to GI upset. Continue to education importance of DAPT therapy, statin therapy in the setting of recent PCI. Follow-up with Dr. Jared Latham on discharge from AICD placement will be needed. 3. Afib/flutter: Again the patient may need rate or rhythm control depending on cardiology needs. He did received Diltiazem and Amio drip. He has recently spontaneously converted to sinus on 04/13/2019 and remains on Metoprolol, and Amio gtt at time of transfer and will defer to merchandise planning manager at [facility] to determine further rate/rhythm control agents. TIME SPENT: Forty-five minutes were spent in the planning of this transfer with over half that spent directly at the bedside of the patient providing direct patient care. Plan of care was discussed with the patient and his family who agree with transfer and have no further questions. All questions were answered for them. If there are any questions about the care of this patient during this hospitalization, please do not hesitate to reach out to the Hospitalist team directly as well as merchandise planning manager Dr. Javier Odell, or Dr. Yakelin Obrien, my cell phone is and please call me directly if there are questions about this transfer. [id number]/[facility] #: [id number] JEROMY
[2019-04-13 17:04] VITALS: BP 107/70
== END 2019-04-13 17:00 | disposition short-term general hospital (02) | DRG 309 ==
LOC: ED 09:07 → MEDTELE 11:46 → ICU 04-12 18:35
PROVIDERS: ADMIT Internal Medicine; ATTEND Internal Medicine
DX: I48.91 Unspecified atrial fibrillation (principal); I13.0 Hypertensive heart and chronic kidney disease with heart failure and stage 1 through stage 4 chronic kidney disease, or unspecified chronic kidney disease; I50.42 Chronic combined systolic (congestive) and diastolic (congestive) heart failure; I48.92 Unspecified atrial flutter; I47.2 Ventricular tachycardia; I27.20 Pulmonary hypertension, unspecified; I42.8 Other cardiomyopathies; I25.10 Atherosclerotic heart disease of native coronary artery without angina pectoris; N18.3 Chronic kidney disease, stage 3 (moderate); I08.1 Rheumatic disorders of both mitral and tricuspid valves; Z91.14 Patient's other noncompliance with medication regimen; Z95.5 Presence of coronary angioplasty implant and graft; Z79.01 Long term (current) use of anticoagulants; Z79.82 Long term (current) use of aspirin; Z79.899 Other long term (current) drug therapy; Z88.8 Allergy status to other drugs, medicaments and biological substances; Z80.9 Family history of malignant neoplasm, unspecified; Z87.891 Personal history of nicotine dependence; I25.2 Old myocardial infarction; Z82.49 Family history of ischemic heart disease and other diseases of the circulatory system; Z83.3 Family history of diabetes mellitus
CPT/HCPCS: 36415; 71045; 80048; 80053; 83735; 83880; 84439; 84443; 84484; 85025; 85610; 87641; 93005; 93306; 99284; A9270-GY; C8929; J0282; J1160; J3475; J3490